=== PATIENT | female | born 1960 | race Caucasian/White ===

== ENCOUNTER 2021-08-21 18:50 | Observation (INO) | payer MEDICARE, MEDICAID ==
[~2021-08-21] VITALS: Ht 160 cm; Wt 68.0 kg
[~2021-08-21 18:50] MED LIST: ACHYD1T PO; AMLO-251 PO; ASPI-1238 PO; ATOR20TA49 PO; ATOR40TA PO; BIOT1TAB PO; BUSP5TAB59 PO; BUSP7.5T5 PO; CHOL10007 PO; CITA40TA13 PO; CYCL10TA25 PO; DIAZ2TAB PO; DOCU-143 PO; FENT1PAT9 TD; FERR325T18 PO; GABA-488 PO; GBPN600T PO; LEVO100T7 PO; LEVO75TA PO; LORA10TA7 PO; LOSA100T57 PO; MELO15TA14 PO; MTP100TCR PO; MULT-35 PO; NF-ACI30T PO; PSEU-182 PO; ZOLP10TA5 PO
[2021-08-21] MEDS ORDERED: CEFEPIME INJECTION 1,000 MG in NS (IVPB) 50 ML IV ONE (19:00)
[2021-08-21] MEDS ORDERED: NS IV 1000 ML 1,000 ML IV SCH (19:00)
--- NOTE | 2021-08-21 19:04 | ED General ---
General Chief Complaint: General Problems/Pain Stated Complaint: WEAKNESS Source of Information: Patient, EMS Exam Limitations: No Limitations History of Present Illness Date Seen by Provider: Aug 21, 2021 Time Seen by Provider: 18:45 Initial Comments 60-year-old female with past medical history of hypertension, prior stroke, HLD, hypothyroidism coming in via EMS from home due to general weakness and nonbloody diarrhea. She says is feeling worse over the past 2 weeks. She says she is hardly been out of her bed at all in the past week and could not get out of bed at all today. Her niece came over and was the one that called an ambulance. Patient says since she has not been able to get out of bed, has not really had anything to eat or drink in the past week significantly. EMS started an IV and gave her 1 L of IV fluids for low blood pressure of 90 systolic. The patient denies any fever, chest pain, shortness of breath, abdominal pain, nausea, focal weakness or numbness, rash, dysuria, or any other concerns. She says she is felt lightheaded and the last fall that she had was about a week ago. Does not take any blood thinners that she knows of. Allergies and Home Medications Allergies Uncoded Allergies: cnantix (Adverse Reaction, Intermediate, 01/04/17) Patient Home Medication List Home Medication List Reviewed: Yes Amlodipine Besylate (Amlodipine Besylate) 10 Mg Tablet, 10 MG PO DAILY, (Reported) Entered as Reported by: BRINDA PEREZ on 01/07/17 08 Aspirin (Aspirin EC) 81 Mg Tablet.dr, 81 MG PO DAILY Prescribed by: LARA ROSALES on 01/15/17901 Atorvastatin Calcium (Lipitor) 40 Mg Tablet, 40 MG PO HS Prescribed by: LARA ROSALES on 01/15/17901 Biotin (Biotin) 1 Mg Tablet, 1 MG PO 1200, (Reported) Entered as Reported by: BRINDA PEREZ on 01/07/17 08 Buspirone HCl (Buspirone HCl) 5 Mg Tablet, 5 MG PO DAILY, (Reported) Entered as Reported by: BRINDA PEREZ on 01/07/17823 Buspirone HCl (Buspirone HCl) 7.5 Mg Tablet, 7.5 MG PO HS, (Reported) Entered as Reported by: BRINDA PEREZ on 01/07/17823 Cholecalciferol (Vitamin D3) (Vitamin D3) 1,000 Unit Capsule, 1,000 UNIT PO 1200, (Reported) Entered as Reported by: BRINDA PEREZ on 01/07/17823 Citalopram Hydrobromide (Citalopram HBr) 40 Mg Tablet, 40 MG PO DAILY, (Reported) Entered as Reported by: BRINDA PEREZ on 01/07/17823 Cyclobenzaprine HCl (Cyclobenzaprine HCl) 10 Mg Tablet, 10 MG PO TID PRN for MUSCLE SPASMS, (Reported) Entered as Reported by: BRINDA PEREZ on 01/07/17823 Diazepam (Valium) 2 Mg Tablet, 2 MG PO Q12H PRN for ANXIETY Prescribed by: LARA ROSALES on 01/15/17901 Docusate Sodium (Colace) 100 Mg Capsule, 200 MG PO HS, (Reported) Entered as Reported by: BRINDA PEREZ on 01/07/17823 Docusate Sodium (Colace) 100 Mg Capsule, 100 MG PO DAILY, (Reported) Entered as Reported by: BRINDA PEREZ on 01/07/17823 Fentanyl (Fentanyl Patch 50 MCG) 1 Each Patch.td72, 50 MCG TD Q72H, (Reported) Entered as Reported by: BRINDA PEREZ on 01/07/17823 Ferrous Sulfate (Ferrous Sulfate) 325 Mg Tablet, 325 MG PO HS, (Reported) Entered as Reported by: BRINDA PEREZ on 01/07/17823 Gabapentin (Gabapentin) 600 Mg Tablet, 600 MG PO DAILY, (Reported) Entered as Reported by: BRINDA PEREZ on 01/07/17823 Gabapentin (Gabapentin) 300 Mg Capsule, 300-600 MG PO 1200 PRN for NERVE PAIN, (Reported) Entered as Reported by: BRINDA PEREZ on 01/07/17827 Gabapentin (Gabapentin) 300 Mg Capsule, 900 MG PO HS, (Reported) Entered as Reported by: BRINDA PEREZ on 01/07/17836 Hydrocodone Bit/Acetaminophen (HYDROcodone/APAP 10/325 TABLET) 1 Each Tablet, 1 TAB PO Q6H PRN for PAIN-MODERATE, (Reported) Entered as Reported by: BRINDA PEREZ on 01/07/17823 Levothyroxine Sodium (Synthroid) 75 Mcg Tablet, 75 MCG PO DAILY@0630 Prescribed by: LARA ROSALES on 01/15/17902 Loratadine (Loratadine) 10 Mg Tablet, 10 MG PO DAILY, (Reported) Entered as Reported by: BRINDA PEREZ on 01/07/17823 Losartan Potassium (Losartan Potassium) 100 Mg Tablet, 100 MG PO HS, (Reported) Entered as Reported by: BRINDA PEREZ on 01/07/17823 Metoprolol Succinate (Metoprolol Succinate) 100 Mg Tab.er.24h, 100 MG PO HS, (Reported) Entered as Reported by: BRINDA PEREZ on 01/07/17823 Multivitamin (Daily Multiple Vitamin) 1 Each Tablet, 1 TAB PO 1200, (Reported) Entered as Reported by: BRINDA PEREZ on 01/07/17823 Rabeprazole Sodium (Aciphex) 20 Mg Tablet.dr, 20 MG PO BID, (Reported) Entered as Reported by: BRINDA PEREZ on 01/07/17823 Review of Systems Review of Systems Constitutional: No fever EENTM: No blurred vision Respiratory: No cough, No short of breath Cardiovascular: No chest pain Gastrointestinal: No abdominal pain; diarrhea Genitourinary: no symptoms reported Musculoskeletal: No joint pain Skin: no symptoms reported Psychiatric/Neurological: Weakness (general) Hematologic/Lymphatic: No Symptoms Reported Immunological/Allergic: no symptoms reported All Other Systems Reviewed Negative Unless Noted: Yes Past Fjkyqfc-Hdtkrj-Hrpkvj Hx Patient Social History Tobacco Use?: No Substance use?: No Alcohol Use?: No Seasonal Allergies Seasonal Allergies: No Past Medical History Surgeries: Yes Respiratory: Yes COPD Cardiac: Yes Neurological: Yes Genitourinary: No Chronic Constipation Musculoskeletal: Yes Arthritis Endocrine: Yes (hashimotos) HEENT: No Cancer: Yes (lung ca 2008) Did You Recieve Any Treatments: No What Type of Treatment Did You: Surgical Intervention Psychosocial: Yes Anxiety, Depression Integumentary: No Blood Disorders: No Adverse Reaction/Blood Tranf: No Physical Exam Vital Signs Vital Signs - First Documented 08/21/21 18:50 Temp 36.7 Pulse 81 Resp 9 B/P (MAP) 87/63 (71) Pulse Ox 96 O2 Delivery Nasal Cannula O2 Flow Rate 2.00 Capillary Refill : Height, Weight, BMI Height: 5'3.00" Weight: 160lbs. 7.0oz. 72.190300fm; 27.8 BMI Method: General Appearance: No Apparent Distress, WD/WN Eyes: Bilateral Eye Normal Inspection HEENT: PERRL/EOMI, Pharynx Normal, Other (dry mucus membranes) Neck: Full Range of Motion, Non Tender Respiratory: Chest Non Tender, Lungs Clear, Normal Breath Sounds, No Accessory Muscle Use, No Respiratory Distress Cardiovascular: Regular Rate, Rhythm, No Edema, Normal Peripheral Pulses Gastrointestinal: Normal Bowel Sounds, Non Tender, Soft; No Distended, No Guarding Back: Normal Inspection, No CVA Tenderness, No Vertebral Tenderness Extremity: Normal Capillary Refill, Normal Inspection, Normal Range of Motion, Non Tender, No Calf Tenderness, No Pedal Edema Neurologic/Psychiatric: Alert, Oriented x3, No Motor/Sensory Deficits, Normal Mood/Affect, janitor and cleaner II-XII Norm as Tested, Other (normal finger to nose) Skin: Normal Color, Warm/Dry Lymphatic: No Adenopathy Focused Exam Lactate Level 08/21/21 19:03: Lactic Acid Level 0.87 Lactic Acid Level Laboratory Tests Test 08/21/21 19:03 Lactic Acid Level 0.87 MMOL/L (0.50-2.00) Progress/Results/Core Measures Suspected Sepsis SIRS Temperature: Pulse: Respiratory Rate: Laboratory Tests 08/21/21 19:03: White Blood Count 6.6 Blood Pressure / Mean: 08/21/21 19:03: Lactic Acid Level 0.87 Laboratory Tests 08/21/21 19:03: Creatinine 0.81, INR Comment 0.9, Platelet Count 304, Total Bilirubin 1.0 Results/Orders Lab Results Laboratory Tests Test 08/21/21 19:03 Range/Units White Blood Count 6.6 4.3-11.0 10^3/uL Red Blood Count 2.95 L 3.80-5.11 10^6/uL Hemoglobin 9.7 L 11.5-16.0 g/dL Hematocrit 30 L 35-52 % Mean Corpuscular Volume 100 H 80-99 fL Mean Corpuscular Hemoglobin 33 25-34 pg Mean Corpuscular Hemoglobin Concent 33 32-36 g/dL Red Cell Distribution Width 17.7 H 10.0-14.5 % Platelet Count 304 130-400 10^3/uL Mean Platelet Volume 10.6 9.0-12.2 fL Immature Granulocyte % (Auto) 0 % Neutrophils (%) (Auto) 56 42-75 % Lymphocytes (%) (Auto) 30 12-44 % Monocytes (%) (Auto) 11 0-12 % Eosinophils (%) (Auto) 2 0-10 % Basophils (%) (Auto) 1 0-10 % Neutrophils # (Auto) 3.7 1.8-7.8 10^3/uL Lymphocytes # (Auto) 2.0 1.0-4.0 10^3/uL Monocytes # (Auto) 0.7 0.0-1.0 10^3/uL Eosinophils # (Auto) 0.1 0.0-0.3 10^3/uL Basophils # (Auto) 0.0 0.0-0.1 10^3/uL Immature Granulocyte # (Auto) 0.0 0.0-0.1 10^3/uL Prothrombin Time 12.9 12.2-14.7 SEC INR Comment 0.9 0.8-1.4 Activated Partial Thromboplast Time 25 24-35 SEC Sodium Level 137 135-145 MMOL/L Potassium Level 3.1 L 3.6-5.0 MMOL/L Chloride Level 93 L 98-107 MMOL/L Carbon Dioxide Level 33 H 21-32 MMOL/L Anion Gap 11 5-14 MMOL/L Blood Urea Nitrogen 8 7-18 MG/DL Creatinine 0.81 0.60-1.30 MG/DL Estimat Glomerular Filtration Rate 83 BUN/Creatinine Ratio 10 Glucose Level 70 70-105 MG/DL Lactic Acid Level 0.87 0.50-2.00 MMOL/L Calcium Level 7.6 L 8.5-10.1 MG/DL Corrected Calcium 9.2 8.5-10.1 MG/DL Total Bilirubin 1.0 0.1-1.0 MG/DL Aspartate Amino Transf (AST/SGOT) 39 H 5-34 U/L Alanine Aminotransferase (ALT/SGPT) 47 0-55 U/L Alkaline Phosphatase 156 H 40-136 U/L Troponin I < 0.028 <0.028 NG/ML Total Protein 5.0 L 6.4-8.2 GM/DL Albumin 2.0 L 3.2-4.5 GM/DL Influenza Type A (RT-PCR) Not Detected Not Detecte Influenza Type B (RT-PCR) Not Detected Not Detecte SARS-CoV-2 RNA (RT-PCR) Not Detected Not Detecte My Orders Orders - NAVYA BUITRAGO MD Covid 19 Inhouse Test (08/21/21 18:55) Cbc With Automated Diff (08/21/21 18:55) Comprehensive Metabolic Panel (08/21/21 18:55) Blood Culture (08/21/21 18:55) Sputum Culture (08/21/21 18:55) Urinalysis (08/21/21 18:55) Urine Culture (08/21/21 18:55) Protime With Inr (08/21/21 18:55) Partial Thromboplastin Time (08/21/21 18:55) Chest 1 View, Ap/Pa Only (08/21/21 18:55) Ed Iv/Invasive Line Start (08/21/21 18:55) Ed Iv/Invasive Line Start (08/21/21 18:55) Ekg Tracing (08/21/21 18:55) Troponin I [place] (08/21/21 18:55) Vital Signs Adult Sepsis Patie Q15M (08/21/21 18:55) O2 (08/21/21 18:55) Remove Rings In Anticipation O (08/21/21 18:55) Lactic Acid Analyzer (08/21/21 18:55) Influenza A And B By Pcr (08/21/21 18:55) Ns Iv 1000 Ml (Sodium Chloride 0.9%) (08/21/21 19:00) Cefepime Injection (Maxipime Injection) (08/21/21 19:00) Ct Head Wo (08/21/21 18:55) Lactated Ringers (Lr 1000 Ml Iv Solution (08/21/21 20:54) Ed Admission (Communication) (08/21/21 23:14) Medications Given in ED Current Medications Medications Dose Ordered Sig/Anastacio Route Start Time Stop Time Status Last Admin Dose Admin Cefepime HCl 1000 mg/Sodium Chloride 50 ml @ 100 mls/hr ONCE ONCE IV 08/21/21 19:00 08/21/21 19:29 DC 08/21/21 19:14 100 MLS/HR Vital Signs/I&O 08/21/21 18:50 Temp 36.7 Pulse 81 Resp 9 B/P (MAP) 87/63 (71) Pulse Ox 96 O2 Delivery Nasal Cannula O2 Flow Rate 2.00 08/22/21 00:00 Intake Total 700 ml Balance 700 ml Capillary Refill : Progress Note : Progress Note 60-year-old female with above history coming in due to diarrhea, lightheaded, general weakness, and low blood pressure. The patient's blood pressure was 80 systolic on arrival. EMS had given her 1 L of IV fluids, after her second liter here her blood pressure was in the 90s systolic with a MAP right around 65. We will give her a 3rd liter of fluids given she has no history of heart disease, liver disease, or kidney disease and still looks volume down. White blood cell count normal, creatinine normal, lactic acid normal, troponin negative, EKG without ischemic changes. Chest x-ray clear, CT head obtained given recent fall and was normal. Initially on arrival when she was hypotensive she was given cefepime for potential sepsis, but it does appear like this is just true dehydration from diarrhea. COVID test is negative. Abdominal exam is reassuring. ECG Initial ECG Impression Date: Aug 21, 2021 Initial ECG Impression Time: 19:04 Initial ECG Rate: 82 Initial ECG Rhythm: Normal Sinus Comment Narrow QRS, normal axis, no significant ST changes or TWI Diagnostic Imaging Diagonstic Imaging: Xray (chest), CT (head) Comments [facility] [place], [place] NAME: SANDER RODRIGUEZ [facility] REC#: [id number] PT STATUS: REG ER : 1960 PHYSICIAN: NAVYA BUITRAGO MD ADMIT DATE: 08/21/21/ER Draft Date of Exam:08/21/21 CT HEAD WO PROCEDURE: CT head without contrast. TECHNIQUE: Multiple contiguous axial images were obtained through the brain without the use of intravenous contrast. Auto Exposure Controls were utilized during the CT exam to meet ALARA standards for radiation dose reduction. INDICATION: Falls. Dizziness. Weakness. COMPARISON: None. FINDINGS: Moderate generalized parenchymal volume loss. No intracranial hemorrhage, mass effect, hydrocephalus or extra-axial fluid collections. Osseous structures are intact. The paranasal sinuses and mastoids are unremarkable. IMPRESSION: No acute intracranial CT findings. Dictated on workstation # [id number] Dict: 08/21/211950 Trans: 08/21/211954 [facility] [id number] Interpreted by: NIYAH TROTTER MD Electronically signed by: ANANDA [facility]. [place], [place] NAME: SANDER RODRIGUEZ [facility] REC#: [id number] PT STATUS: REG ER : 1960 PHYSICIAN: NAVYA BUITRAGO MD ADMIT DATE: 08/21/21/ER Draft Date of Exam:08/21/21 CHEST 1 VIEW, AP/PA ONLY CLINICAL INDICATIONS: Patient complains of weakness x1 week. Patient has history of small cell lung cancer. EXAM: Portable chest x-ray, upright view. COMPARISON: None. FINDINGS: There is consolidation in the right hemithorax region. There is shifting of the mediastinal structures toward the right and surgical clips in the expected region of the right hilar area. These findings are suspected to be related to right pneumonectomy changes. There is hyperinflation of the left lung. Left lung is clear. There is no left pleural effusion or pneumothorax. Cardiac silhouette is obscured and displaced toward the right. Left pulmonary vasculature structures are grossly unremarkable. There are degenerative spurs involving the spine. Likely postop changes of bone anchor involving the proximal right humerus. IMPRESSION: 1: There appear to be right pneumonectomy changes. Correlation with prior outside hospital chest x-rays or CT scans would better evaluate for stability. 2: The left lung is hyperinflated with no lung infiltrate. Dictated on workstation # [id number] Dict: 08/21/211951 Trans: 08/21/212000 [facility] [id number] Interpreted by: LINDSAY BEY MD Electronically signed by: Departure Impression Primary Impression: Hypotension Qualified Codes: I95.89 - Other hypotension; E86.1 - Hypovolemia Additional Impressions: Diarrhea Qualified Codes: R19.7 - Diarrhea, unspecified Dehydration Disposition: ADMITTED INPATIENT Condition: Stable Admissions Decision to Admit Reason: Admit from ER (General) Decision to Admit/Date: Aug 21, 2021 Time/Decision to Admit Time: 20:55 Departure-Patient Inst. Referrals: MATILDA FRANK (PCP/Family) Primary Care Physician NAVYA BUITRAGO MD Aug 21, 2021 19:03
[2021-08-21 19:07] LABS: BASOPHILS % (AUTO) 1 % (0-10); EOSINOPHILS # (AUTO) 0.1 10^3/uL (0.0-0.3); EOSINOPHILS % (AUTO) 2 % (0-10); HEMATOCRIT 30 % (35-52); HEMOGLOBIN 9.7 g/dL (11.5-16.0); LYMPHOCYTES % (AUTO) 30 % (12-44); MEAN CORPUSCULAR HEMOGLOBIN 33 pg (25-34); MEAN CORPUSCULAR HGB CONC 33 g/dL (32-36); MEAN CORPUSCULAR VOLUME 100 fL (80-99); MEAN PLATELET VOLUME 10.6 fL (9.0-12.2); MONOCYTES # (AUTO) 0.7 10^3/uL (0.0-1.0); MONOCYTES % (AUTO) 11 % (0-12); NEUTROPHILS # (AUTO) 3.7 10^3/uL (1.8-7.8); NEUTROPHILS % (AUTO) 56 % (42-75); PLATELET COUNT 304 10^3/uL (130-400); WHITE BLOOD COUNT 6.6 10^3/uL (4.3-11.0)
[2021-08-21 19:20] LABS: CHLORIDE 93 MMOL/L (98-107); POTASSIUM 3.1 MMOL/L (3.6-5.0); SODIUM 137 MMOL/L (135-145)
[2021-08-21 19:21] LABS: CALCIUM 7.6 MG/DL (8.5-10.1)
[2021-08-21 19:22] LABS: GLUCOSE 70 MG/DL (70-105)
[2021-08-21 19:23] LABS: CARBON DIOXIDE 33 MMOL/L (21-32); INR 0.9 (0.8-1.4); PROTHROMBIN TIME PATIENT 12.9 SEC (12.2-14.7)
[2021-08-21 19:25] LABS: ALKALINE PHOSPHATASE 156 U/L (40-136)
[2021-08-21 19:26] LABS: CREATININE SERUM 0.81 MG/DL (0.60-1.30); GFR ESTIMATED 83
[2021-08-21 19:27] LABS: BUN/CREATININE RATIO 10
[2021-08-21 19:29] LABS: ALANINE AMINOTRANSFERASE 47 U/L (0-55)
--- NOTE | 2021-08-21 19:55 | Diagnostic Imaging Report ---
PROCEDURE: CT head without contrast. TECHNIQUE: Multiple contiguous axial images were obtained through the brain without the use of intravenous contrast. Auto Exposure Controls were utilized during the CT exam to meet ALARA standards for radiation dose reduction. INDICATION: Falls. Dizziness. Weakness. COMPARISON: None. FINDINGS: Moderate generalized parenchymal volume loss. No intracranial hemorrhage, mass effect, hydrocephalus or extra-axial fluid collections. Osseous structures are intact. The paranasal sinuses and mastoids are unremarkable. IMPRESSION: No acute intracranial CT findings. Dictated by: Dictated on workstation # [id number]
--- NOTE | 2021-08-21 20:01 | Diagnostic Imaging Report ---
CLINICAL INDICATIONS: Patient complains of weakness x1 week. Patient has history of small cell lung cancer. EXAM: Portable chest x-ray, upright view. COMPARISON: None. FINDINGS: There is consolidation in the right hemithorax region. There is shifting of the mediastinal structures toward the right and surgical clips in the expected region of the right hilar area. These findings are suspected to be related to right pneumonectomy changes. There is hyperinflation of the left lung. Left lung is clear. There is no left pleural effusion or pneumothorax. Cardiac silhouette is obscured and displaced toward the right. Left pulmonary vasculature structures are grossly unremarkable. There are degenerative spurs involving the spine. Likely postop changes of bone anchor involving the proximal right humerus. IMPRESSION: 1: There appear to be right pneumonectomy changes. Correlation with prior outside hospital chest x-rays or CT scans would better evaluate for stability. 2: The left lung is hyperinflated with no lung infiltrate. Dictated by: Dictated on workstation # [id number]
[2021-08-21] MEDS ORDERED: LACTATED RINGERS 1,000 ML IV STA (20:54)
[2021-08-21 23:57] VITALS: BP 120/84
[2021-08-22] VITALS (9 sets, daily range): BP systolic 87–120; BP diastolic 63–86
[2021-08-22] MEDS ORDERED: ONDANSETRON 4 MG/2 ML (SDV) Z0FRAN IV PRN (00:15)
[2021-08-22] MEDS ORDERED: LORazepam INJ 2 MG/ML (ATIVAN) VIAL IVP PRN (00:15)
[2021-08-22] MEDS ORDERED: LOPERAMIDE 2 MG (IMODIUM) TABLET PO PRN (00:15)
[2021-08-22] MEDS ORDERED: BISACODYL 10 MG SUPP (DULCOLAX) PR PRN (00:15)
[2021-08-22] MEDS ORDERED: NS IV 1000 ML 1,000 ML IV SCH (00:15)
[2021-08-22] MEDS ORDERED: ALPRAZolam 0.25 MG (XANAX) TAB PO PRN (00:15)
[2021-08-22] MEDS ORDERED: diphenhydrAMINE 25 MG TAB (BENADRYL) PO PRN (00:15)
[2021-08-22] MEDS ORDERED: NS (IVPB) 250 ML IV PRN (00:15)
[2021-08-22] MEDS ORDERED: ACETAMINOPHEN 325 MG TABLET PO PRN (00:15)
[2021-08-22] MEDS ORDERED: MELATONIN 3 MG TABLET PO PRN (00:15)
[2021-08-22] MEDS ORDERED: diphenhydrAMINE 50 MG/ML INJ (BENADRYL) IVP PRN (00:15)
[2021-08-22] MEDS ORDERED: ANTACID SUSP 30 ML UDC (MYLANTA) PO PRN (00:15)
[2021-08-22] MEDS ORDERED: CALCIUM CARBONATE 500 MG (TUMS) TAB.CHEW PO PRN (00:15)
[2021-08-22] MEDS ORDERED: MILK OF MAGNESIA 400 MG/5 ML 30 ML UDC PO PRN (00:15)
[2021-08-22] MEDS ORDERED: ONDANSETRON 4 MG (ZOFRAN) ORAL DISSOLVE TAB PO PRN (00:15)
[2021-08-22] MEDS ORDERED: polyethylene glycoL POWDER 17 GM (MIRALAX) PACK PO PRN (00:15)
[2021-08-22] MEDS ORDERED: LACTULOSE SYRUP 10GM/15ML (ENULOSE) 30ML UDC PO PRN (00:15)
[2021-08-22] MEDS ORDERED: morphine INJ 4 MG/ML 1 ML (VIAL/SYRINGE) IV PRN (00:15)
[2021-08-22] MEDS ORDERED: RT-ALBUTEROL SULF 2.5 MG/3 ML PRE-MIX VIAL INH PRN (01:00)
--- NOTE | 2021-08-22 06:51 | History & Physical-Hospitalist ---
History of Present Illness Date Seen 08/22/21 Time Seen by a Provider: 09:30 Attending Physician Bernadette Erazo PCP Admitting Physician: Mary Vazquez DO Attending Physician: Mary Vazquez DO Referring Physician Date of Admission Aug 21, 2021 at 23:15 Home Medications & Allergies Home Medications Reviewed patient Home Medication Reconciliation performed by pharmacy medication reconciliations nail technician and/or nursing. Patients Allergies have been reviewed. Allergies Allergies Uncoded Allergies cnantix ( Adverse Reaction, Intermediate, 01/04/17) Past Kkombro-Glbcxh-Hxgyqw Hx Patient Social History Tobacco Use?: No Smoking Status: Former Smoker Smokeless Tobacco Frequency: Former User Use of E-Cig and/or Vaping dev: No Substance use?: No Alcohol Use?: No Pt feels they are or have been: No Immunizations Up To Date Date of Influenza Vaccine: Jan 08, 2017 First/Initial COVID19 Vaccinat: 2021 Second COVID19 Vaccination Michael: 2021 Tetanus Booster (TDap): Less Than 5 Years Date of Pneumonia Vaccine: Dec 06, 2015 Seasonal Allergies Seasonal Allergies: No Current Status status: No status: No Communicates: Verbally Primary Language: Cymro Preferred Spoken Language: Cymro Is interpretation needed?: No Implanted or Applied Medical D: None Past Medical History COPD Chronic Constipation Arthritis Did You Recieve Any Treatments: No What Type of Treatment Did You: Surgical Intervention Anxiety, Depression Blood Disorders: No Adverse Reaction/Blood Tranf: No Physical Exam Physical Exam Vital Signs Vital Signs - First Documented 08/21/21 18:50 Temp 36.7 Pulse 81 Resp 9 B/P (MAP) 87/63 (71) Pulse Ox 96 O2 Delivery Nasal Cannula O2 Flow Rate 2.00 Capillary Refill : Height, Weight, BMI Height: 5'3.00" Weight: 160lbs. 7.0oz. 72.948331qi; 26.36 BMI Method: Results Results/Procedures Labs Laboratory Tests 08/21/21 19:03 08/22/21 07:37 Patient resulted labs reviewed. MARY VAZQUEZ DO Aug 22, 2021 06:51
[2021-08-22 07:50] LABS: BASOPHILS # (AUTO) 0.1 10^3/uL (0.0-0.1); BASOPHILS % (AUTO) 1 % (0-10); EOSINOPHILS # (AUTO) 0.2 10^3/uL (0.0-0.3); EOSINOPHILS % (AUTO) 3 % (0-10); HEMATOCRIT 33 % (35-52); HEMOGLOBIN 10.4 g/dL (11.5-16.0); LYMPHOCYTES # (AUTO) 1.6 10^3/uL (1.0-4.0); LYMPHOCYTES % (AUTO) 24 % (12-44); MEAN CORPUSCULAR HEMOGLOBIN 32 pg (25-34); MEAN CORPUSCULAR HGB CONC 32 g/dL (32-36); MEAN CORPUSCULAR VOLUME 103 fL (80-99); MEAN PLATELET VOLUME 11.1 fL (9.0-12.2); MONOCYTES # (AUTO) 0.6 10^3/uL (0.0-1.0); MONOCYTES % (AUTO) 10 % (0-12); NEUTROPHILS # (AUTO) 4.2 10^3/uL (1.8-7.8); NEUTROPHILS % (AUTO) 63 % (42-75); PLATELET COUNT 209 10^3/uL (130-400); WHITE BLOOD COUNT 6.7 10^3/uL (4.3-11.0)
[2021-08-22 08:05] LABS: ALBUMIN 2.1 GM/DL (3.2-4.5); BILIRUBIN,TOTAL 0.9 MG/DL (0.1-1.0); CALCIUM 7.6 MG/DL (8.5-10.1); CREATININE SERUM 0.87 MG/DL (0.60-1.30); POTASSIUM 3.4 MMOL/L (3.6-5.0); TOTAL PROTEIN 5.4 GM/DL (6.4-8.2)
[2021-08-22] MEDS ORDERED: SENNOSIDES 8.6 MG (SENOKOT) TAB PO SCH (09:00)
[2021-08-22] MEDS ORDERED: ENOXAPARIN 40 MG/0.4 ML (LOVENOX) SYR SC SCH (09:00)
[2021-08-22] MEDS ORDERED: DOCUSATE SODIUM 100 MG (COLACE) CAP PO SCH (09:00)
--- NOTE | 2021-08-22 09:39 | Short Stay Summary ---
History of Present Illness History of Present Illness Reason for visit/HPI CC: Dehydration from Diarrhea HPI: This is 60 yr old female who has a previous history of CVA and pneumonectomy due to lung cancer. She presented to the ER with severe weakness and was found to have profound dehydration. She received aggressive IV fluid with good return of urinary output. Diarrhea has been much improved since admission. The plan is to go to in-patient rehab due to multiple falls history and severe weakness. She would like to go to assisted living. She wears oxygen 01/10. Date of Admission Aug 21, 2021 at 23:15 Date of Discharge 08/22/21 Time Seen by Provider: 10:00 Attending Physician Bernadette Erazo Admitting Physician Admitting Physician: Mary Vazquez DO Attending Physician: Mary Vazquez DO Consult Allergies and Home Medications Allergies Coded Allergies: varenicline (Verified Allergy, Unknown, 08/22/21) Patient Home Medication List Home Medication List Reviewed: Yes Aspirin (Aspirin EC) 81 Mg Tablet.dr, 81 MG PO DAILY, (Reported) Entered as Reported by: MARIA DOLORES LAM on 08/22/21 1147 Atorvastatin Calcium (Atorvastatin Calcium) 40 Mg Tablet, 40 MG PO HS, (Reported) Entered as Reported by: MARIA DOLORES LAM on 08/22/21 1147 Cyclobenzaprine HCl (Cyclobenzaprine HCl) 10 Mg Tablet, 10 MG PO TID PRN for MUSCLE SPASMS, (Reported) Entered as Reported by: BRINDA PEREZ on 01/07/17 0824 Fentanyl (Fentanyl Patch 50 MCG) 50 Mcg/Hour Patch.td72, 50 MCG TD Q72H, (Reported) Entered as Reported by: MARIA DOLORES LAM on 08/22/21 1147 Fluticasone Propionate (Fluticasone Propionate) 50 Mcg/Actuation [place].susp, 1 SPRAY NSEACH DAILY PRN for CONGESTION, (Reported) Entered as Reported by: MARIA DOLORES LAM on 08/22/21 1147 Gabapentin (Gabapentin) 600 Mg Tablet, 600 MG PO BID PRN for PAIN-BREAKTHROUGH, (Reported) Entered as Reported by: BRINDA PEREZ on 01/07/17 0824 Hydrocodone/Acetaminophen (Hydrocodone-Acetamin 5-325 mg) 5 Mg-325 Mg Tablet, 1 EA PO Q4H PRN for PAIN-MODERATE (5-7), (Reported) Entered as Reported by: MARIA DOLORES LAM on 08/22/21 1147 Hydroxyzine HCl (Hydroxyzine HCl) 50 Mg Tablet, 50 MG PO TID PRN for ANXIETY, (Reported) Entered as Reported by: MARIA DOLORES LAM on 08/22/21 114 Levothyroxine Sodium (Levothyroxine Sodium) 75 Mcg Tablet, 75 MCG PO DAILY, (Reported) Entered as Reported by: MARIA DOLORES LAM on 08/22/21 114 Losartan Potassium (Losartan Potassium) 100 Mg Tablet, 100 MG PO HS, (Reported) Entered as Reported by: BRINDA PEREZ on 01/07/17823 Metoprolol Succinate (Metoprolol Succinate) 100 Mg Tab.er.24h, 100 MG PO DAILY, (Reported) Entered as Reported by: BRINDA PEREZ on 01/07/17823 Paroxetine HCl (Paroxetine HCl) 10 Mg Tablet, 10 MG PO DAILY, (Reported) Entered as Reported by: MARIA DOLORES LAM on 08/22/21 114 Paroxetine HCl (Paroxetine HCl) 40 Mg Tablet, 40 MG PO DAILY, (Reported) Entered as Reported by: MARIA DOLORES LAM on 08/22/21 1148 Rabeprazole Sodium (Aciphex) 20 Mg Tablet.dr, 20 MG PO BID, (Reported) Entered as Reported by: BRINDA PEREZ on 01/07/17823 Discontinued Medications Amlodipine Besylate (Amlodipine Besylate) 10 Mg Tablet, 10 MG PO DAILY, (Reported) Discontinued Reason: No Longer Taking Entered as Reported by: BRINDA PEREZ on 01/07/17827 Aspirin (Aspirin EC) 81 Mg Tablet.dr, 81 MG PO DAILY Discontinued Reason: No Longer Taking Prescribed by: LARA ROSALES on 01/15/17901 Atorvastatin Calcium (Lipitor) 40 Mg Tablet, 40 MG PO HS Discontinued Reason: No Longer Taking Prescribed by: LARA ROSALES on 01/15/17901 Biotin (Biotin) 1 Mg Tablet, 1 MG PO 1200, (Reported) Discontinued Reason: No Longer Taking Entered as Reported by: BRINDA PEREZ on 01/07/17823 Buspirone HCl (Buspirone HCl) 5 Mg Tablet, 5 MG PO DAILY, (Reported) Discontinued Reason: No Longer Taking Entered as Reported by: BRINDA PEREZ on 01/07/17823 Buspirone HCl (Buspirone HCl) 7.5 Mg Tablet, 7.5 MG PO HS, (Reported) Discontinued Reason: No Longer Taking Entered as Reported by: BRINDA PEREZ on 01/07/17823 Cholecalciferol (Vitamin D3) (Vitamin D3) 1,000 Unit Capsule, 1,000 UNIT PO 1200, (Reported) Discontinued Reason: No Longer Taking Entered as Reported by: BRINDA PEREZ on 01/07/17823 Citalopram Hydrobromide (Citalopram HBr) 40 Mg Tablet, 40 MG PO DAILY, (Reported) Discontinued Reason: No Longer Taking Entered as Reported by: BRINDA PEREZ on 01/07/17823 Diazepam (Valium) 2 Mg Tablet, 2 MG PO Q12H PRN for ANXIETY Discontinued Reason: No Longer Taking Prescribed by: LARA ROSALES on 01/15/17901 Docusate Sodium (Colace) 100 Mg Capsule, 200 MG PO HS, (Reported) Discontinued Reason: No Longer Taking Entered as Reported by: BRINDA PEREZ on 01/07/17823 Docusate Sodium (Colace) 100 Mg Capsule, 100 MG PO DAILY, (Reported) Discontinued Reason: No Longer Taking Entered as Reported by: BRINDA PERZE on 01/07/17823 Fentanyl (Fentanyl Patch 50 MCG) 1 Each Patch.td72, 50 MCG TD Q72H, (Reported) Discontinued Reason: No Longer Taking Entered as Reported by: BRINDA PEREZ on 01/07/17823 Ferrous Sulfate (Ferrous Sulfate) 325 Mg Tablet, 325 MG PO HS, (Reported) Discontinued Reason: No Longer Taking Entered as Reported by: BRINDA PEREZ on 01/07/17823 Gabapentin (Gabapentin) 300 Mg Capsule, 300-600 MG PO 1200 PRN for NERVE PAIN, (Reported) Discontinued Reason: No Longer Taking Entered as Reported by: BRINDA PEREZ on 01/07/17827 Gabapentin (Gabapentin) 300 Mg Capsule, 900 MG PO HS, (Reported) Discontinued Reason: No Longer Taking Entered as Reported by: BRINDA PEREZ on 01/07/17836 Hydrocodone Bit/Acetaminophen (HYDROcodone/APAP 10/325 TABLET) 1 Each Tablet, 1 TAB PO Q6H PRN for PAIN-MODERATE, (Reported) Discontinued Reason: No Longer Taking Entered as Reported by: BRINDA PEREZ on 01/07/17 0824 Levothyroxine Sodium (Synthroid) 75 Mcg Tablet, 75 MCG PO DAILY@0630 Discontinued Reason: No Longer Taking Prescribed by: LARA ROSALES on 01/15/17 0903 Loratadine (Loratadine) 10 Mg Tablet, 10 MG PO DAILY, (Reported) Discontinued Reason: No Longer Taking Entered as Reported by: BRINDA PEREZ on 01/07/17823 Multivitamin (Daily Multiple Vitamin) 1 Each Tablet, 1 TAB PO 1200, (Reported) Discontinued Reason: No Longer Taking Entered as Reported by: BRINDA PEREZ on 01/07/17823 Past Nnfykja-Trjgvq-Dcjkik Hx Patient Social History Marrital Status: single Employed/Student: unemployed Smoking Status: Former Smoker Recent Hopitalizations: Yes Have you traveled recently?: No Alcohol Use?: No Pt feels they are or have been: No Immunizations Up To Date Date of Pneumonia Vaccine: Dec 06, 2015 Date of Influenza Vaccine: Jan 08, 2017 Seasonal Allergies Seasonal Allergies: No Surgeries Yes Respiratory Yes Asthma, COPD Cardiovascular Yes High Cholesterol, Hypertension Neurological Yes Stroke Genitourinary No Gastrointestinal Yes Chronic Constipation Musculoskeletal Yes Arthritis 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) Endocrine Disorders: Hypothyroidsim HEENT History of HEENT Disorders: No Cancer Yes (lung ca 2008) Did You Recieve Any Treatments: No Type of Treatment: Surgical Intervention Psychosocial History of Psychiatric Problem: Yes Behavioral Health Disorders: Anxiety, Depression Integumentary History of Skin or Integumenta: No Blood Transfusions History of Blood Disorders: No Adverse Reaction to a Blood Tr: No Review of Systems Constitutional: see HPI, malaise, weakness EENTM: no symptoms reported Cardiovascular: no symptoms reported Gastrointestinal: no symptoms reported Genitourinary: no symptoms reported Musculoskeletal: back pain, joint pain Skin: no symptoms reported Psychiatric/Neurological: Anxiety All Other Systems Reviewed Negative Unless Noted: Yes Physical Exam Vital Signs Vital Signs - First Documented 08/21/21 18:50 Temp 36.7 Pulse 81 Resp 9 B/P (MAP) 87/63 (71) Pulse Ox 96 O2 Delivery Nasal Cannula O2 Flow Rate 2.00 Capillary Refill : Height, Weight, BMI Height: 5'3.00" Weight: 160lbs. 7.0oz. [id number]; 26.36 BMI Method: General Appearance: No Apparent Distress, WD/WN, Chronically ill Eyes: Bilateral Eye Normal Inspection, Bilateral Eye PERRL, Bilateral Eye EOMI HEENT: PERRL/EOMI, Normal ENT Inspection, Pharynx Normal Neck: Full Range of Motion, Normal Inspection, Non Tender, Supple, Carotid Bruit Respiratory: Chest Non Tender, Lungs Clear, Normal Breath Sounds, No Accessory Muscle Use, No Respiratory Distress Cardiovascular: Regular Rate, Rhythm, No Edema, No Gallop, No JVD, No Murmur, Normal Peripheral Pulses Gastrointestinal: Normal Bowel Sounds, No Organomegaly, No Pulsatile Mass, Non Tender, Soft Back: Normal Inspection, No CVA Tenderness, No Vertebral Tenderness Extremity: Normal Capillary Refill, Normal Inspection, Normal Range of Motion, Non Tender, No Calf Tenderness, No Pedal Edema Neurologic/Psychiatric: Alert, Oriented x3, No Motor/Sensory Deficits, Normal Mood/Affect Skin: Normal Color, Warm/Dry Lymphatic: No Adenopathy Short Stay Diagnosis Discharge Diagnosis-Short Stay Admission Diagnosis: Weakness Dehydration Diarrhea Final Discharge Diagnosis: Weakness Dehydration Diarrhea Conclusion Labs Laboratory Tests 08/21/21 19:03: White Blood Count 6.6, Red Blood Count 2.95L, Hemoglobin 9.7L, Hematocrit 30L, Mean Corpuscular Volume 100H, Mean Corpuscular Hemoglobin 33, Mean Corpuscular Hemoglobin Concent 33, Red Cell Distribution Width 17.7H, Platelet Count 304, Mean Platelet Volume 10.6, Immature Granulocyte % (Auto) 0, Neutrophils (%) (Auto) 56, Lymphocytes (%) (Auto) 30, Monocytes (%) (Auto) 11, Eosinophils (%) (Auto) 2, Basophils (%) (Auto) 1, Neutrophils # (Auto) 3.7, Lymphocytes # (Auto) 2.0, Monocytes # (Auto) 0.7, Eosinophils # (Auto) 0.1, Basophils # (Auto) 0.0, Immature Granulocyte # (Auto) 0.0, Prothrombin Time 12.9, INR Comment 0.9, Activated Partial Thromboplast Time 25, Sodium Level 137, Potassium Level 3.1L, Chloride Level 93L, Carbon Dioxide Level 33H, Anion Gap 11, Blood Urea Nitrogen 8, Creatinine 0.81, Estimat Glomerular Filtration Rate 83, BUN/Creatinine Ratio 10, Glucose Level 70, Lactic Acid Level 0.87, Calcium Level 7.6L, Corrected C alcium 9.2, Total Bilirubin 1.0, Aspartate Amino Transf (AST/SGOT) 39H, Alanine Aminotransferase (ALT/SGPT) 47, Alkaline Phosphatase 156H, Troponin I < 0.028, Total Protein 5.0L, Albumin 2.0L, Influenza Type A (RT-PCR) Not Detected, Influenza Type B (RT-PCR) Not Detected, SARS-CoV-2 RNA (RT-PCR) Not Detected 08/22/21 07:37: White Blood Count 6.7, Red Blood Count 3.22L, Hemoglobin 10.4L, Hematocrit 33L, Mean Corpuscular Volume 103H, Mean Corpuscular Hemoglobin 32, Mean Corpuscular Hemoglobin Concent 32, Red Cell Distribution Width 17.8H, Platelet Count 209, Mean Platelet Volume 11.1, Immature Granulocyte % (Auto) 1, Neutrophils (%) (Auto) 63, Lymphocytes (%) (Auto) 24, Monocytes (%) (Auto) 10, Eosinophils (%) (Auto) 3, Basophils (%) (Auto) 1, Neutrophils # (Auto) 4.2, Lymphocytes # (Auto) 1.6, Monocytes # (Auto) 0.6, Eosinophils # (Auto) 0.2, Basophils # (Auto) 0.1, Immature Granulocyte # (Auto) 0.0, Sodium Level 139, Potassium Level 3.4L, Chloride Level 99, Carbon Dioxide Level 26, Anion Gap 14, Blood Urea Nitrogen 8, Creatinine 0.87, Estimat Glomerular Filtration Rate 76, BUN/Creatinine Ratio 9, Glucose Level 66L, Calcium Level 7.6L, Corrected Calcium 9.1, Total Bilirubin 0.9, Aspartate Amino Transf (AST/SGOT) 44H, Alanine Aminotransferase (ALT/SGPT) 48, Alkaline Phosphatase 198H, Total Protein 5.4L, Albumin 2.1L Conclusion/Plan MARY Diaz DO Aug 22, 2021 09:39
--- NOTE | 2021-08-22 09:54 | Physical Therapy Evaluation ---
PT Evaluation-General Medical Diagnosis Admission Date Aug 21, 2021 at 23:15 Medical Diagnosis: hypotension/dehydration Onset Date: Aug 21, 2021 Therapy Diagnosis Therapy Diagnosis: generalized weakness/debility Height/Weight Height (Feet): 5 Height (Inches): 3.00 Weight (Pounds): 160 Weight (Ounces): 7.0 Precautions Precautions/Isolations: Fall Prevention, Standard Precautions Referral Physician: George Reason for Referral: Evaluation/Treatment Medical History Pertinent Medical History: COPD, CVA, DM, HTN, Hypothroidism Current History EMS secondary to generalized weakness Reviewed History: Yes Social History Current Living Status: Alone Prior Prior Level of Function SCALE: Activities may be completed with or without assistive devices. 3-Wpizmroxbj-sjmntad completes the activity by him/herself with no assistance from a helper. 5-Set-up or Clean-up Assistance-helper sets up or cleans up; patient completes activity. [place] assists only prior to or following the activity. 4-Supervision or Touching Assistance-helper provides verbal cues and/or touc wyatt/steadying and/or contact guard assistance as patient completes activity. Assistance may be provided throughout the activity or intermittently. 3-Partial/Moderate Assistance-helper does LESS THAN HALF the effort. [place] lifts, holds or supports trunk or limbs, but provides less than half the effort. 2-Substantial/Maximal Assistance-helper does MORE THAN HALF the effort. [place] lifts or holds trunk or limbs and provides more than half the effort. 2-Efjygoxby-qnjwnr does ALL the effort. Patient does none of the effort to complete the activity. Or, the assistance of 2 or more helpers is required for the patient to complete the activity. If activity was not attempted, code reason: 7-Patient Refused. 9-Not Applicable-not attempted and the patient did not perform the activity before the current illness, exacerbation or injury. 10-Not Attempted due to Environmental Limitations-(lack of equipment, weather restraints, etc.). 88-Not Attempted due to Medical Conditions or Safety Concerns. Bed Mobility: 6 Transfers (B,C,W/C): 6 Gait: 6 Stairs: 6 Indoor Mobility (Ambulation): Independent Stairs: Independent Prior Devices Use: None PT Evaluation-Current Subjective Patient agrees to PT. Reports she feels weak but better. Objective Patient Orientation: Person, Time, Situation Attachments: Oxygen, Mcnamara Catheter, IV ROM/Strength ROM Lower Extremities bilateral LE WFL Strength Lower Extremities 3-/5 grossly bilateral LE Integumentary/Posture Integumentary refer to nursing notes Bladder Incontinence: Mcnamara Cath Posture WFL Neuromuscular (Tone, Coordination, Reflexes) diminished coordination due to weakness Sensory Vision: double vis Hearing: Functional Transfers Sit to Lying (QC): 3 Lying to Sitting/Side of Bed(Q: 3 Sit to Stand (QC): 3 severe retropulsion in stand with PT correct Gait Does the Patient Walk?: No and Walking Goal IS indicated Walk 10 feet (QC): 88 Walk 50 ft with 2 Turns(QC): 88 Walk 150 ft (QC): 88 Gait Assistive Device: FWW Balance Sitting Static: Fair Sitting Dynamic: Fair Standing Static: Poor Standing Dynamic: Poor Assessment/Needs 60 y.o. female, will benefit from skilled PT to address functional strength and mobility to improve current LOF. Rehab Potential: Fair PT Environmental Programs Manager Goals Environmental Programs Manager Goals PT Environmental Programs Manager Goals Time Frame: Sep 09, 2021 Roll Left & Right (QC): 6 Sit to Lying (QC): 6 Lying-Sitting on Side/Bed(QC): 6 Sit to Stand (QC): 6 Chair/Wne-ya-Yigbc Xfer(QC): 6 Toilet Transfer (QC): 6 Car Transfer (QC): 6 Walk 10 feet (QC): 6 Walk 50ft with 2 Turns (QC): 6 Walk 150 ft (QC): 6 PT Plan Problem List Problem List: Activity Tolerance, Functional Strength, Safety, Balance, Gait, Transfer, Bed Mobility Treatment/Plan Treatment Plan: Continue Plan of Care Treatment Plan: Bed Mobility, Education, Functional Activity Bright, Functional Strength, Gait, Safety, Therapeutic Exercise, Transfers Treatment Duration: Sep 09, 2021 Frequency: 6 times per week Estimated Hrs Per Day: .5 hour per day Patient and/or Family Agrees t: Yes Discharge Recommendations Therapy Discharge Recommendati: Post Acute PT Time/GCodes Time In: 750 Time Out: 807 Total Billed Treatment Time: 17 Total Billed Treatment 1 visit EVMod 17 min ETTA SHANKS PT Aug 22, 2021 09:54
[2021-08-22] MEDS ORDERED: ACHD5005 PO (11:47)
[2021-08-22] MEDS ORDERED: FLUT16SP22 NSEACH (11:47)
[2021-08-22] MEDS ORDERED: ATOR40TA70 PO (11:47)
[2021-08-22] MEDS ORDERED: ASPI-1238 PO (11:47)
[2021-08-22] MEDS ORDERED: LEVO75TA6 PO (11:47)
[2021-08-22] MEDS ORDERED: HYDR50TA76 PO (11:47)
[2021-08-22] MEDS ORDERED: FENT1PAT9 TD (11:47)
[2021-08-22] MEDS ORDERED: PARO40TA3 PO (11:48)
[2021-08-22] MEDS ORDERED: PARO10TA3 PO (11:48)
== END 2021-08-22 11:30 ==
LOC: ER 18:50 → CSD 23:15
PROVIDERS: ADMIT Internal Medicine; ATTEND Internal Medicine
DX: R53.1 Weakness (principal); E86.0 Dehydration; R19.7 Diarrhea, unspecified; I95.89 Other hypotension; E86.1 Hypovolemia
CPT/HCPCS: 70450; 71045; 80053 ×2; 83605; 84484; 85025 ×2; 85610; 85730; 87040; 87636; 93005; 96372; 97162; 99284; G0378; 36415; 87077

== ENCOUNTER 2021-08-22 10:23 | Inpatient (IN) | payer MEDICARE, MEDICAID ==
[~2021-08-22] VITALS: Ht 160 cm; Wt 74.8 kg
--- NOTE | 2021-08-22 11:09 | PM&R Post Admission Assessment ---
PM&R HP Date of Visit: Aug 22, 2021 Time of Visit: 12:00 History of Present Illness CC: Debility from Dehydration from Diarrhea HPI: This is 60 yr old female who has a previous history of CVA and pneumonectomy due to lung cancer. She presented to the ER with severe weakness and was found to have profound dehydration. She received aggressive IV fluid with good return of urinary output. Diarrhea has been much improved since admission. The plan is to go to in-patient rehab due to multiple falls history and severe weakness. She would like to go to assisted living. She wears oxygen 01/10. She reports she has been staying in bed all the time due to fear of falling and has sustained a pressure ulcer on her heel so wound care will see her. Past Xxssbfh-Bsfdwa-Upsxux Hx Past Med/Social Hx: Reviewed Nursing Past Med/Soc Hx, Reviewed and Corrections made Patient Social History Marrital Status: single Employed/Student: unemployed Alcohol Use: Denies Use Smoking Status: Former Smoker Type Used: Cigarettes Recent Hopitalizations: Yes Immunizations Up To Date Date of Pneumonia Vaccine: Dec 06, 2015 Date of Influenza Vaccine: Jan 08, 2017 Seasonal Allergies Seasonal Allergies: No Past Medical History Surgeries: Lobectomy Respiratory: COPD Cardiac: High Cholesterol, Hypertension Neurological: Neuropathy, Stroke Genitourinary: Bladder Infection Gastrointestinal: Chronic Constipation Musculoskeletal: Arthritis Cancer: Lung Did You Recieve Any Treatments: No What Type of Treatment Did You: Surgical Intervention Psychosocial: Anxiety, Depression History of Blood Disorders: No Adverse Reaction to Blood Silva: No PM&R Allergy/Meds/Data Review Allergies Coded Allergies: varenicline (Verified Allergy, Unknown, 08/22/21) Home Medications Scheduled Aspirin (Aspirin EC), 81 MG PO DAILY, (Reported) Atorvastatin Calcium (Atorvastatin Calcium), 40 MG PO HS, (Reported) Fentanyl (Fentanyl Patch 50 MCG), 50 MCG TD Q72H, (Reported) Levothyroxine Sodium (Levothyroxine Sodium), 75 MCG PO DAILY, (Reported) Losartan Potassium (Losartan Potassium), 100 MG PO HS, (Reported) Metoprolol Succinate (Metoprolol Succinate), 100 MG PO DAILY, (Reported) Paroxetine HCl (Paroxetine HCl), 10 MG PO DAILY, (Reported) Paroxetine HCl (Paroxetine HCl), 40 MG PO DAILY, (Reported) Rabeprazole Sodium (Aciphex), 20 MG PO BID, (Reported) Scheduled PRN Cyclobenzaprine HCl (Cyclobenzaprine HCl), 10 MG PO TID PRN for MUSCLE SPASMS, (Reported) Fluticasone Propionate (Fluticasone Propionate), 1 SPRAY NSEACH DAILY PRN for CONGESTION, (Reported) Gabapentin (Gabapentin), 600 MG PO BID PRN for PAIN-BREAKTHROUGH, (Reported) Hydrocodone/Acetaminophen (Hydrocodone-Acetamin 5-325 mg), 1 EA PO Q4H PRN for PAIN-MODERATE (5-7), (Reported) Hydroxyzine HCl (Hydroxyzine HCl), 50 MG PO TID PRN for ANXIETY, (Reported) Discontinued Medications Amlodipine Besylate (Amlodipine Besylate), 10 MG PO DAILY, (Reported) Discontinued Reason: No Longer Taking Aspirin (Aspirin EC), 81 MG PO DAILY Discontinued Reason: No Longer Taking Atorvastatin Calcium (Lipitor), 40 MG PO HS Discontinued Reason: No Longer Taking Biotin (Biotin), 1 MG PO 1200, (Reported) Discontinued Reason: No Longer Taking Buspirone HCl (Buspirone HCl), 5 MG PO DAILY, (Reported) Discontinued Reason: No Longer Taking Buspirone HCl (Buspirone HCl), 7.5 MG PO HS, (Reported) Discontinued Reason: No Longer Taking Cholecalciferol (Vitamin D3) (Vitamin D3), 1,000 UNIT PO 1200, (Reported) Discontinued Reason: No Longer Taking Citalopram Hydrobromide (Citalopram HBr), 40 MG PO DAILY, (Reported) Discontinued Reason: No Longer Taking Diazepam (Valium), 2 MG PO Q12H PRN for ANXIETY Discontinued Reason: No Longer Taking Docusate Sodium (Colace), 200 MG PO HS, (Reported) Discontinued Reason: No Longer Taking Docusate Sodium (Colace), 100 MG PO DAILY, (Reported) Discontinued Reason: No Longer Taking Fentanyl (Fentanyl Patch 50 MCG), 50 MCG TD Q72H, (Reported) Discontinued Reason: No Longer Taking Ferrous Sulfate (Ferrous Sulfate), 325 MG PO HS, (Reported) Discontinued Reason: No Longer Taking Gabapentin (Gabapentin), 300-600 MG PO 1200 PRN for NERVE PAIN, (Reported) Discontinued Reason: No Longer Taking Gabapentin (Gabapentin), 900 MG PO HS, (Reported) Discontinued Reason: No Longer Taking Hydrocodone Bit/Acetaminophen (HYDROcodone/APAP 10/325 TABLET), 1 TAB PO Q6H PRN for PAIN-MODERATE, (Reported) Discontinued Reason: No Longer Taking Levothyroxine Sodium (Synthroid), 75 MCG PO DAILY@0630 Discontinued Reason: No Longer Taking Loratadine (Loratadine), 10 MG PO DAILY, (Reported) Discontinued Reason: No Longer Taking Multivitamin (Daily Multiple Vitamin), 1 TAB PO 1200, (Reported) Discontinued Reason: No Longer Taking Current Medications Current Medications Reviewed Review of Systems Constitutional: see HPI, malaise, weakness EENTM: no symptoms reported Respiratory: dyspnea on exertion, short of breath Cardiovascular: no symptoms reported Gastrointestinal: diarrhea, loss of appetite, nausea Genitourinary: no symptoms reported Musculoskeletal: back pain, joint pain Skin: no symptoms reported Psychiatric/Neurological: Anxiety, Depressed All Other Systems Reviewed Negative Unless Noted: Yes Physical Exam Physical Exam Vital Signs Capillary Refill : Height, Weight, BMI Height: 5'3.00" Weight: 160lbs. 7.0oz. [id number]; 26.36 BMI Method: General Appearance: No Apparent Distress, WD/WN, Anxious, Chronically ill Eyes: Bilateral Eye Normal Inspection, Bilateral Eye PERRL HEENT: PERRL/EOMI, Normal ENT Inspection, Pharynx Normal Neck: Full Range of Motion, Normal Inspection, Non Tender, Supple, Carotid Bruit Respiratory: Chest Non Tender, Lungs Clear, Normal Breath Sounds, No Accessory Muscle Use, No Respiratory Distress, Decreased Breath Sounds Cardiovascular: Regular Rate, Rhythm, No Edema, No Gallop, No JVD, No Murmur, Normal Peripheral Pulses Gastrointestinal: Normal Bowel Sounds, No Organomegaly, No Pulsatile Mass, Non Tender, Soft Back: Normal Inspection, No CVA Tenderness, No Vertebral Tenderness Extremity: Normal Capillary Refill, Normal Inspection, Normal Range of Motion, Non Tender, No Calf Tenderness, No Pedal Edema Neurologic/Psychiatric: Alert, Oriented x3, high school music instructor II-XII Norm as Tested, Abnormal Gait, Depressed Affect, Motor Weakness (generalized 3/5) Skin: Normal Color, Warm/Dry, Other (pressure ulcer left heel) Lymphatic: No Adenopathy PM&R Medical Assessment & Plan REHAB/MEDICAL ASSESSMENT AND PLAN: REHAB IMPAIRMENT GROUP: Debility with prior CVA ETIOLOGIC DIAGNOSIS: Debility with prior CVA The comorbidities that impact the patients function and/or functional outcome by: fear of falls, pressure ulcer heel, dehydration, diarrhea, prior CVA REHAB PLAN: The patient is being admitted to our comprehensive inpatient rehabilitation facility and can tolerate the intensity of service consisting of at least: 180 minutes of therapy a day, 5 out of 7 days a week Rehab treatment will consist of: PT OT will focus on regaining function with use of assistive devices in order to improve independence in order to go to assisted living The patient/family has a good understanding of our discharge process and will benefit from an interdisciplinary inpatient rehabilitation program. The patient has potential to make improvement and is in need of at least two of the following multidisciplinary therapies including but not limited to physical, occupational, speech, and prosthetics and orthotics. Additionally the patient will need services from respiratory, nutritional services, wound care, psychology, etc. (Customize this to each patient). Given the patients complex condition and risk of further medical complications, rehabilitation services cannot be safely or effectively provided at a lower level of care such as a prison facility. BARRIERS TO DISCHARGE: Falls ESTIMATED LOS: 10 days DISPOSITION: AL RELEVANT CHANGES SINCE PREADMISSION SCREENING: I have compared the patients medical and functional status at the time of the preadmission screening and there are: no changes PROGNOSIS: Fair REHABILITATION GOALS: 1. PT OT will focus on regaining function with use of assistive devices in order to improve independence in order to go to assisted living All the above goals were reviewed with the patient and he/she is in agreement. By signing this document, I acknowledge that I have personally performed a full physical examination on this patient within 24 hours of admission to this inpatient rehabilitation facility and have determined the patient to be able to tolerate the above course of treatment at an intensive level for a reasonable period of time. I will be completing a detailed individualized Plan of Care for this patient by day #4 of the patients stay based upon the Preadmission Screen, the Post-Admission Evaluation, and the therapy evaluations. Admission Dx/Comorbidities: (1) Dehydration Status: Acute ICD Codes: E86.0 - Dehydration (2) Diarrhea Status: Acute ICD Codes: R19.7 - Diarrhea, unspecified (3) Hypotension Status: Acute ICD Codes: I95.9 - Hypotension, unspecified (4) Cerebellar stroke ICD Codes: I63.9 - Cerebral infarction, unspecified Assessment/Plan Assessment and Plan Assess & Plan/Chief Complaint Assessment: Debility Dehydration Diarrhea Bacteremia placed on Unasyn Chronic pain on Fentanyl patch and Hydrocodone Multiple falls Left heel ulcer pressure type present prior to admit Bedridden h/o Left lacunar cerebellar infarct with gait imbalance and dyscoordination on the left 2016 HTN controlled Hypothyroidosm on replacement Post thoracotomy pain syndrome on pain meds Mild anemia 02 dependence s/p thoracotomy Plan: Home meds IVF Unasyn Repeat BCx PT OT O2 MECHELLE FOY DO Aug 22, 2021 11:09
[2021-08-22] MEDS ORDERED: DOCUSATE SODIUM 100 MG (COLACE) CAP PO PRN (11:15)
[2021-08-22] MEDS ORDERED: LACTULOSE SYRUP 10GM/15ML (ENULOSE) 30ML UDC PO PRN (11:15)
[2021-08-22] MEDS ORDERED: FLEET ENEMA ADULT 1 EA BTL PR PRN (11:15)
[2021-08-22] MEDS ORDERED: ALPRAZolam 0.25 MG (XANAX) TAB PO PRN (11:15)
[2021-08-22] MEDS ORDERED: diphenhydrAMINE 25 MG TAB (BENADRYL) PO PRN (11:15)
[2021-08-22] MEDS ORDERED: MELATONIN 3 MG TABLET PO PRN (11:15)
[2021-08-22] MEDS ORDERED: ACETAMINOPHEN 325 MG TABLET PO PRN (11:15)
[2021-08-22] MEDS ORDERED: LOPERAMIDE 2 MG (IMODIUM) TABLET PO PRN (11:15)
[2021-08-22] MEDS ORDERED: guaiFENesin/CODEINE (ROBITUSSIN AC) 10ML UDC PO PRN (11:15)
[2021-08-22] MEDS ORDERED: CALCIUM CARBONATE 500 MG (TUMS) TAB.CHEW PO PRN (11:15)
[2021-08-22] MEDS ORDERED: BISACODYL 10 MG SUPP (DULCOLAX) PR PRN (11:15)
[2021-08-22 11:40] VITALS: BP 82/51
[2021-08-22] MEDS ORDERED: HYDR50TA76 PO (11:47)
[2021-08-22] MEDS ORDERED: FENT1PAT9 TD (11:47)
[2021-08-22] MEDS ORDERED: ATOR40TA70 PO (11:47)
[2021-08-22] MEDS ORDERED: ASPI-1238 PO (11:47)
[2021-08-22] MEDS ORDERED: LEVO75TA6 PO (11:47)
[2021-08-22] MEDS ORDERED: ACHD5005 PO (11:47)
[2021-08-22] MEDS ORDERED: FLUT16SP22 NSEACH (11:47)
[2021-08-22] MEDS ORDERED: PARO10TA3 PO (11:48)
[2021-08-22] MEDS ORDERED: PARO40TA3 PO (11:48)
[2021-08-22 12:00] VITALS: BP 88/58
--- NOTE | 2021-08-22 12:03 | Occupational Therapy Eval ---
OT Evaluation-General/PLF Medical Diagnosis Admission Date Aug 22, 2021 at 11:25 Medical Diagnosis: debility Onset Date: Aug 21, 2021 Therapy Diagnosis Therapy Diagnosis: decreased ADL status and weakness Height/Weight Height (Feet): 5 Height (Inches): 3.00 Weight (Pounds): 160 Weight (Ounces): 7.0 Referral Physician: George Referral Reason: Evaluation/Treatment Medical History Pertinent Medical History: COPD, CVA, DM, HTN, Hypothroidism Additional Medical History HTN, CVA, HLD, hypothyroidism, COPD, arthritis, lung cancer (2008), anxiety, and depression. Current History Admitted to ED on 08/21 with c/o weakness and diarrhea, unable to get out of bed. Social History Home: Apartment (first floor) Current Living Status: Alone Entry Into Home: Stairs Without Railing Steps Into Home: 1 ADL-Prior Level of Function SCALE: Activities may be completed with or without assistive devices. 4-Pndgplrphn-dusekxf completes the activity by him/herself with no assistance from a helper. 5-Set-up or Clean-up Assistance-helper sets up or cleans up; patient completes activity. [place] assists only prior to or following the activity. 4-Supervision or Touching Assistance-helper provides verbal cues and/or touching/steadying and/or contact guard assistance as patient completes activity. Assistance may be provided throughout the activity or intermittently. 3-Partial/Moderate Assistance-helper does LESS THAN HALF the effort. [place] lifts, holds or supports trunk or limbs, but provides less than half the effort. 2-Substantial/Maximal Assistance-helper does MORE THAN HALF the effort. [place] lifts or holds trunk or limbs and provides more than half the effort. 8-Agofmccni-jpkhqn does ALL the effort. Patient does none of the effort to complete the activity. Or, the assistance of 2 or more helpers is required for the patient to complete the activity. If activity was not attempted, code reason: 7-Patient Refused. 9-Not Applicable-not attempted and the patient did not perform the activity before the current illness, exacerbation or injury. 10-Not Attempted due to Environmental Limitations-(lack of equipment, weather restraints, etc.). 88-Not Attempted due to Medical Conditions or Safety Concerns. ADL PLOF Comments Pt lives in apartment alone and says "it scares my family to ." She says that she was IND in ADLs prior to last summer, but "it has taken a nose dive since last summer." She only showers when she needs to because it takes her "like two hours" since she moves slowly trying to prevent falls. She has a SPC but does not use it. She is afraid of falling, says the safest way to prevent falls is "just don't get up." Self Care: Independent Functional Cognition: Independent DME/Equipment: Bath Bench, Shower (walk-in), Shower Hose [employer] Systems Administrator OT Current Status Subjective Pt reclined in bed prior to OT eval/tx. Pt c/o of dizziness and n/v, but agreeable to eval/tx. Pt hyperverbal, gets off task, but easily redirected. Mental Status/Objective Patient Orientation: Person, Place, Situation Attachments: [place] Catheter, IV, Oxygen Current Glasses/Contacts: Yes Hearing Aids: No Dentures/Partials: No Hand Dominance: Right Upper Extremity ROM WFL, Shoulder flexion is approximately 120 degrees bilaterally Upper Extremity Sensation Some residual sensation issues from past CVA, but pt reports no new UE sensory deficits. Upper Extremity Strength Bilateral elbow flex/exten: 4/5 Bilateral shoulder flexion: 3-/5 ADL-Treatment Eating (QC): 5 Oral Hygiene (QC): 5 Shower/Bathe Self (QC): 3 (Min A with standing balance, pt able to wash/dry all parts except buttocks.) Upper Body Dressing (QC): 3 (Cue for orientation of shirt, then min A pulling s pino down back. ) Lower Body Dressing (QC): 3 (Min A standing balance, pt able to manage pant hike and thread BLEs.) On/Off Footwear (QC): 3 (Pt able to doff, min A with donning gripper socks.) Toileting Hygiene (QC): 3 (Min A for balance, pt able to perform pericare and clothing management.) Other Treatments [id number]: OT evaluation complete. PT/OT cotreat d/t skill of 2 clinicians required which a sonography technician could not perform d/t complex medical needs of pt, decreased strength, activity tolerance, mobility/transfers. OT focused on ADLs, UE placement, cues for safety and sequencing, and PT focused on LE placement, gross overall movement, transfers, and mobility. Pt transferred from EOB to stand, Min A. She attempted to walk with FWW (5', CGA) but complained of lightheadedness and nausea, sat in w/c and taken to ARU therapy room. Pt attempted to walk with FWW in gym but got lightheaded and nauseous again. Pt pushed in w/c to room to answer further questions about PLOF and home environment and participate in UE screen. Pt left in recliner with call light in reach and all need met. Patient performs rolling with SBA, supine <-> sit min assist, sit <-> stand min assist, transfers min assist, car transfer mod assist. Patient needs cues for hand placement and safety. [id number] Cotreat: BP 87/35, 71 HR at start of tx, nurse aware. PT/OT cotreat d/t skill of 2 clinicians required which a sonography technician could not perform d/t complex medical needs of pt, decreased strength, activity tolerance, mobility/transfers, and low blood pressure. OT focused on ADLs, UE placement, cues for safety and sequencing, and PT focused on LE placement, gross overall movement, transfers, and mobility. Pt completed sponge bath seated in recliner with Min A for standing balance when drying off. Pt completed dressing while seated in recliner, requiring Min A for balance when standing to hike brief and pants. Post tx, pt in recliner, call light in reach and all needs met. Education OT Patient Education: Correct positioning, Energy conservation, Exercise p luca, Modified ADL techniques, Progress toward Goal/Update tx plan, Purpose of tx/functional activities, Rehab process Teaching Recipient: Patient Teaching Methods: Discussion Response to Teaching: Verbalize Understanding OT Short Term Goals Short Term Goals Time Frame: Sep 04, 2021 Toileting hygiene: 4 Shower/bathe self: 4 Lower body dressin Putting on/taking off footwear: 4 OT Assisted Goals Assisted Goals Time Frame: Sep 15, 2021 Eating (QC): 6 Oral Hygiene (QC): 6 Toileting Hygiene (QC): 6 Shower/Bathe Self (QC): 6 Upper Body Dressing (QC): 6 Lower Body Dressing (QC): 6 On/Off Footwear (QC): 6 Additional Goals: 1-Demonstrate ADL Tasks, 2-Verbalize Understanding, 3- ImproveStrength/Bright 1=Demonstrate adherence to instructed precautions during ADL tasks. 2=Patient will verbalize/demonstrate understanding of assistive devices/modifications for ADL. 3=Patient will improve strength/tolerance for activity to enable patient to perform ADL's. OT Education/Plan Problem List/Assessment Assessment: Decreased Activ Tolerance, Decreased UE Strength, Impaired Funct Balance, Impaired I ADL's, Impaired Self-Care Skills Discharge Recommendations Plan/Recommendations: Continue POC Treatment Plan/Plan of Care Patient would benefit from OT for education, treatment and training to promote independence in ADL's, mobility, safety and/or upper extremity function for ADL's. Plan of Care: ADL Retraining, Functional Mobility, Group Exercise/Act as Ind, UE Funct Exercise/Act Treatment Duration: Sep 15, 2021 Frequency: At least 5 of 7 days/Wk (IRF) Estimated Hrs Per Day: 1.5 hours per day Rehab Potential: Guarded Time/GCodes Start Time: 11:35 ([id number]) Stop Time: 13:30 ([id number]) Total Time Billed (hr/min): 75 Billed Treatment Time 0793-0904 OT eval, [id number] cotreat, [id number] Cotreat 1, EVM (10'), FA (15') 1, ADL 3 (50') MOODY BHATT OT Aug 22, 2021 12:03
[2021-08-22] MEDS ORDERED: NS IV 1000 ML 1,000 ML IV SCH (12:30)
[2021-08-22] MEDS ORDERED: GABAPENTIN 600 MG (NEURONTIN) TAB PO PRN (13:00)
[2021-08-22] MEDS ORDERED: RX-CYCLOBENZAPRINE 10 MG (FLEXERIL) TAB PPK#3 PO PRN (13:00)
[2021-08-22] MEDS ORDERED: FLUTICASONE NASAL SPRAY (FLONASE) 16 GM BTL NS PRN (13:00)
[2021-08-22] MEDS ORDERED: NON-FORMULARY MEDICATION 1 EA EA (Hydroxyzine HCl 50 MG) PO PRN (13:00)
[2021-08-22] MEDS ORDERED: hydrOXYzine (VISTARIL/ATARAX) 25 MG capsule/tablet PO PRN (13:15)
--- NOTE | 2021-08-22 13:40 | Physical Therapy Evaluation ---
PT Evaluation-General Medical Diagnosis Admission Date Aug 22, 2021 at 11:25 Medical Diagnosis: debility Onset Date: Aug 21, 2021 Therapy Diagnosis Therapy Diagnosis: impaired mobility Height/Weight Height (Feet): 5 Height (Inches): 3.00 Weight (Pounds): 160 Weight (Ounces): 7.0 Referral Physician: Mary Vazquez DO Reason for Referral: Evaluation/Treatment Medical History Pertinent Medical History: COPD, CVA, DM, HTN, Hypothroidism Reviewed History: Yes Social History Home: Apartment (first floor) Current Living Status: Alone Entry Into Home: Stairs Without Railing PT Steps Into Home: 1 Prior Prior Level of Function SCALE: Activities may be completed with or without assistive devices. 9-Mvvsvrlvvc-cszumzx completes the activity by him/herself with no assistance from a helper. 5-Set-up or Clean-up Assistance-helper sets up or cleans up; patient completes activity. [place] assists only prior to or following the activity. 4-Supervision or Touching Assistance-helper provides verbal cues and/or touching/steadying and/or contact guard assistance as patient completes activity. Assistance may be provided throughout the activity or intermittently. 3-Partial/Moderate Assistance-helper does LESS THAN HALF the effort. [place] lifts, holds or supports trunk or limbs, but provides less than half the effort. 2-Substantial/Maximal Assistance-helper does MORE THAN HALF the effort. [place] lifts or holds trunk or limbs and provides more than half the effort. 9-Fmiyothmi-cwzxsf does ALL the effort. Patient does none of the effort to complete the activity. Or, the assistance of 2 or more helpers is required for the patient to complete the activity. If activity was not attempted, code reason: 7-Patient Refused. 9-Not Applicable-not attempted and the patient did not perform the activity before the current illness, exacerbation or injury. 10-Not Attempted due to Environmental Limitations-(lack of equipment, weather restraints, etc.). 88-Not Attempted due to Medical Conditions or Safety Concerns. Bed Mobility: 6 Transfers (B,C,W/C): 6 Gait: 6 Stairs: 6 Indoor Mobility (Ambulation): Independent Stairs: Independent PT Evaluation-Current Subjective Patient in bed pre tx, agrees to PT, has no pain at rest except for a burn on her right thigh. Will be co-treating with OT for part of tx due to poor patient mobility, severe debility, coordinate UE and LE during activity, safety and reduce risk of falls. Pt/Family Goals to be independent at home Objective Patient Orientation: Person, Place, Situation Attachments: Oxygen ROM/Strength ROM Lower Extremities WNL Strength Lower Extremities LLE (hip flexion 3-/5, knee flexion 3+/5, knee extension 4-/5, dorsiflexion 3+/5), RLE (hip flexion 3-/5, knee flexion 3+/5, knee extension 4-/5, dorsiflexion 3+/5) Sensory Hearing: Functional Hand Dominance: Right Sensation Right Lower Extremit: Impaired Sensation Left Lower Extremity: Intact Transfers Roll Left & Right (QC): 4 Sit to Lying (QC): 3 Lying to Sitting/Side of Bed(Q: 3 Sit to Stand (QC): 3 Chair/Eeq-ma-Mhfgd Xfer(QC): 3 Toilet Transfer (QC): 3 Car Transfer (QC): 3 Patient performs rolling with SBA, supine <-> sit min assist, sit <-> stand min assist, transfers min assist, car transfer mod assist. Patient needs cues for hand placement and safety. Gait Walk 10 feet (QC): 88 Walk 50 ft with 2 Turns(QC): 88 Walk 150 ft (QC): 88 Walking 10ft/uneven surface-QC: 88 Distance: 5' Gait Assistive Device: FWW Comments/Gait Description Patient ambulated 5' with a rolling walker with CGA, couldn't go further due to nausea and fatigue. Patient has poor foot clearance, short steps. Wheelchair Training Does the Pt Use a Wheelchair?: Yes Wheel 50 ft with 2 turns (QC): 3 Wheel 150 ft (QC): 88 Stairs 1 Step (curb) (QC): 88 4 Steps (QC): 88 12 Steps (QC): 88 Balance Sitting Static: Normal Sitting Dynamic: Normal Standing Static: Fair Standing Dynamic: Fair Picking up an Object (QC): 88 Treatment PT performed bed mobility and transfers, ambulation, WC mobility, OT performed UE positioning and safety during activity, cues for safety. Assessment/Needs Patient in recliner post tx with nurse call, phone, tray, all needs met, to continue for a bit with OT. Rehab Potential: Fair PT Short Term Goals Short Term Goals Time Frame: Aug 29, 2021 Roll Left & Right: 6 Sit to lyin Lying to sitting on side of be: 4 Sit to stand: 4 Walk 10 feet: 4 PT Fpc Goals Assembly Person Goals PT Assembly Person Goals Time Frame: Sep 12, 2021 Roll Left & Right (QC): 6 Sit to Lying (QC): 6 Lying-Sitting on Side/Bed(QC): 6 Sit to Stand (QC): 4 (SBA) Chair/Zzr-hz-Qjqep Xfer(QC): 4 (SBA) Toilet Transfer (QC): 4 (SBA) Car Transfer (QC): 4 (SBA) Does the Patient Walk: Yes Walk 10 feet (QC): 4 (SBA) Walk 50ft with 2 Turns (QC): 4 (SBA) Walk 150 ft (QC): 88 Walking 10ft on Uneven Surface: 4 (SBA) 1 Step (curb) (QC): 4 (SBA) 4 Steps (QC): 88 12 Steps (QC): 88 Picking up an Object (QC): 4 (SBA using video production intern) Wheel 50 feet with 2 turns (QC: 9 Wheel 150 feet: 9 PT Plan Problem List Problem List: Activity Tolerance, Functional Strength, Safety, Balance, Gait, Transfer, Bed Mobility, ROM Treatment/Plan Treatment Plan: Continue Plan of Care Treatment Plan: Bed Mobility, Education, Functional Activity Bright, Functional Strength, Group Therapy, Gait, Safety, Therapeutic Exercise, Transfers Treatment Duration: Sep 12, 2021 Frequency: At least 5 of 7 days/Wk (IRF) Estimated Hrs Per Day: 1.5 hours per day Patient and/or Family Agrees t: Yes Safety Risks/Education Patient Education: Gait Training, Transfer Techniques, Correct Positioning, Safety Issues Teaching Recipient: Patient Teaching Methods: Demonstration, Discussion Response to Teaching: Reinforcement Needed Discharge Recommendations Plan Patient will perform bed mobility and transfer training, balance and endurance training, functional strengthening, stair training, gait training, and education, to improve functional mobility and independence at home. Therapy Discharge Recommendati: Scheduled Assistance, Home & Family, Post Acute PT Time/GCodes Time In: 1125 Time Out: 1200 Total Billed Treatment Time: 25 Total Billed Treatment 1 visit EVM 10' FA 15' PT eval from [id number], OT eval from [id number], co-treat from [id number] APRIL MUELLER PT Aug 22, 2021 13:40
[2021-08-22] MEDS: AMPICILLIN/SULBACTAM INJECTION 1.5 GM in NS (IVPB) 100 ML IV SCH ×2 (14:18→18:24)
--- NOTE | 2021-08-22 14:27 | Physical Therapy Daily Note ---
PT Daily Note-Current Subjective Pt sitting in recliner upon arrival. Pt agrees to PT/OT co-treat and BP monitored as pt reports not feeling well. Pain Location: Right Location Body Site: Thigh Comment: Reports soreness at burn site in outer R thigh and heel but not rated Mental Status Patient Orientation: Person, Confused, Situation Transfers SCALE: Activities may be completed with or without assistive devices. 0-Phsetuqyjy-abdfbkm completes the activity by him/herself with no assistance from a helper. 5-Set-up or Clean-up Assistance-helper sets up or cleans up; patient completes activity. [place] assists only prior to or following the activity. 4-Supervision or Touching Assistance-helper provides verbal cues and/or touching/steadying and/or contact guard assistance as patient completes activity. Assistance may be provided throughout the activity or intermittently. 3-Partial/Moderate Assistance-helper does LESS THAN HALF the effort. [place] lifts, holds or supports trunk or limbs, but provides less than half the effort. 2-Substantial/Maximal Assistance-helper does MORE THAN HALF the effort. [place] lifts or holds trunk or limbs and provides more than half the effort. 2-Hkwdqzzic-aehwcv does ALL the effort. Patient does none of the effort to complete the activity. Or, the assistance of 2 or more helpers is required for the patient to complete the activity. If activity was not attempted, code reason: 7-Patient Refused. 9-Not Applicable-not attempted and the patient did not perform the activity before the current illness, exacerbation or injury. 10-Not Attempted due to Environmental Limitations-(lack of equipment, weather restraints, etc.). 88-Not Attempted due to Medical Conditions or Safety Concerns. Sit to Stand (QC): 3 Weight Bearing Full Weight Bearing Full Weight Bearing Exercises Seated Therapy Exercises: Sit to stand Treatments [id number] [place]: BP 87/35, 71 HR at start of tx, nurse aware. PT/OT [place] d/t skill of 2 clinicians required which a clinical rehabilitation specialist could not perform d/t complex medical needs of pt, decreased strength, activity tolerance, mobility/transfers, and low blood pressure. OT focused on ADLs, UE placement, cues for safety and sequencing, and PT focused on LE placement, gross overall movement, transfers, and mobility. Pt completed sponge bath seated in recliner with Min A for standing balance when drying off. Pt completed dressing while seated in recliner, requiring Min A for balance when standing to hike brief and pants. Post tx, pt in recliner, call light in reach and all needs met. Assessment Current Status: Fair Progress Fatigues quickly. VC for sequencing at times. BP has remained low so monitored during tx char. after standing. PT Short Term Goals Short Term Goals Time Frame: Aug 29, 2021 Roll Left & Right: 6 Sit to lyin Lying to sitting on side of be: 4 Sit to stand: 4 Walk 10 feet: 4 PT First Front Ventilator Goals First Front Ventilator Goals PT Alf Goals Time Frame: Sep 12, 2021 Roll Left & Right (QC): 6 Sit to Lying (QC): 6 Lying-Sitting on Side/Bed(QC): 6 Sit to Stand (QC): 4 (SBA) Chair/Fer-jh-Alvgm Xfer(QC): 4 (SBA) Toilet Transfer (QC): 4 (SBA) Car Transfer (QC): 4 (SBA) Does the Patient Walk: Yes Walk 10 feet (QC): 4 (SBA) Walk 50ft with 2 Turns (QC): 4 (SBA) Walk 150 ft (QC): 88 Walking 10ft on Uneven Surface: 4 (SBA) 1 Step (curb) (QC): 4 (SBA) 4 Steps (QC): 88 12 Steps (QC): 88 Picking up an Object (QC): 4 (SBA using nail making machine setter) Wheel 50 feet with 2 turns (QC: 9 Wheel 150 feet: 9 PT Plan Problem List Problem List: Activity Tolerance, Functional Strength Treatment/Plan Treatment Plan: Continue Plan of Care Treatment Duration: Sep 12, 2021 Frequency: At least 5 of 7 days/Wk (IRF) Estimated Hrs Per Day: 1.5 hours per day Safety Risks/Education Patient Education: Transfer Techniques, Correct Positioning, Safety Issues Teaching Recipient: Patient Teaching Methods: Discussion Response to Teaching: Verbalize Understanding Time/GCodes Time In: 1240 Time Out: 1330 Total Billed Treatment Time: 50 Total Billed Treatment Co-treat w/OT for 50m 1, FA x3 (50m) MARCY CORTES SENIOR SALES REPRESENTATIVE Aug 22, 2021 14:27
--- NOTE | 2021-08-22 14:53 | ST Dysphagia Evaluation ---
Speech Evaluation-General Medical Diagnosis Debility Onset Date: Aug 21, 2021 Therapy Diagnosis Therapy Diagnosis: Intact Oropharyngeal Swallow Precautions Precautions: Fall, Aspiration Precautions/Isolations: Aspiration, Fall Prevention Referral Referring Physician: Dr. Vazquez Reason for Referral: Evaluation/Treatment Medical History Pertinent Medical History: COPD, CVA, DM, HTN, Hypothroidism Current History The patient is a 60 year old female with a past medical history of stroke (2017) and lung cancer (treated with a pneumonectomy), who presented to the ER with severe weakness and profound dehydration. Reviewed History: Yes Social History Current Living Status: Alone Speech PLF/Current-Dysphagia Prior Level of Function The patient stated she consumes a regular consistency diet with thin liquids at home. The patient denied s/s of suspected aspiration with P.O. consistencies consumed. The advanced nursing professor requested the clinician assess the patient's swallowing function as she had stated she "had choking" on specific items. The clinician visited with the patient and the patient stated she had difficulty swallowing immediately following her lung surgery and following her stroke in 2016. The patient denied current difficulties with the exception of taking smaller bites of food due to the poor condition of her dentition. Subjective The patient was seated upright in her recliner, awake and alert upon entrance to her room by the clinician. The patient greeted the clinician appropriately and was agreeable to participation in the clinical bedside swallowing evaluation. Cognitive Status Patient Orientation: Person, Place, Time, Situation Oral Motor Skills Dentition: Natural Current Food Consistancy: Regular, Thin Liquids Ability to Follow Directions: Good Oral Expression Ability: No Impairment Voice Voice Phonatory-Based Quality: Normal Voice Pitch: Normal Voice Loudness: Normal Face Facial Symmetry: Symmetrical Oral-Facial Assessment Oral-Facial Dentition: Normal Smile: Normal Lingual Protrusion: Normal Lingual ROM: Normal Lingual Strength: Normal Volitional Dry Swallow: Yes Voluntary Cough: Yes Can Clear Throat Volitionally: Yes Productive Cough: Yes Productive Throat Clear: Yes Dysphagia Evaluation Consistencies Presented: Regular, Thin Liquid Oral phase deficits were not present throughout the evaluation. Pharyngeal phase deficits were not present during the evaluation. The patient consumed her lunch tray of chicken tenders, ethiopian fries, and iced tea. No s/s of suspected aspiration were demonstrated with any consistency tested. Dietary Recommendations: Regular Liquid Recommendations: Thin Recommendations: - Regular consistency diet with thin liquids, as tolerated. - Fully upright and alert for PO intake. - Small bites and sips, only. - Monitor for s/s of suspected aspiration with PO intake. If demonstrated, contact speech pathology. The results and recommendations were discussed extensively with the patient, who verbalized comprehension of the discussion. Dysphagia Evaluation Summary The patient demonstrated an intact oropharyngeal swallow function. Speech-Plan Treatment Plan Speech Therapy Treatment Plan: Discontinue ST (Discontinue dysphagia services. Cognitive evaluation to follow.) Treatment Duration: Aug 22, 2021 Frequency: 1 time per week Estimated Hrs Per Day: .5 hour per day Rehab Potential: Fair Pt/Family Agrees to Plan: Yes Safety Risks/Education Teaching Recipient: Patient Teaching Methods: Discussion Response to Teaching: Verbalize Understanding Education Topics Provided: Results, Recommendations, Swallowing Strategies Time Speech Therapy Time In: 13:35 Speech Therapy Time Out: 14:05 Total Billed Time: 30 Billed Treatment Time 1, CHRISTAL REMY [facility] Aug 22, 2021 14:53
[2021-08-22 15:00] VITALS: BP 129/62
[2021-08-22] MEDS: NS IV 1000 ML 1,000 ML IV SCH (16:41)
[2021-08-22 16:59] VITALS: BP 123/64
[2021-08-22 19:27] VITALS: BP 102/62
[2021-08-22] MEDS: HYDROcodone/APAP 5 MG/325 MG (LORTAB) TAB PO PRN (20:03)
[2021-08-22] MEDS: SENNA W/DOCUSATE (SENOKOT S) TABLET PO SCH (20:03)
[2021-08-22] MEDS: polyethylene glycoL POWDER 17 GM (MIRALAX) PACK PO SCH (20:03)
[2021-08-22] MEDS: DOCUSATE SODIUM 100 MG (COLACE) CAP PO SCH (20:03)
[2021-08-22] MEDS: PANTOPRAZOLE 40 MG (PROTONIX) TAB PO SCH (20:03)
[2021-08-22] MEDS ORDERED: NON-FORMULARY MEDICATION 1 EA EA (Rabeprazole Sodium (Aciphex) 20 MG) PO SCH (21:00)
[2021-08-23] MEDS: AMPICILLIN/SULBACTAM INJECTION 1.5 GM in NS (IVPB) 100 ML IV SCH ×4 (01:02→18:44)
[2021-08-23] MEDS: NS IV 1000 ML 1,000 ML IV SCH ×3 (04:49→18:44)
--- NOTE | 2021-08-23 06:04 | PM&R Progress Note ---
Subjective HPI/CC On Admission Date Seen by Provider: Aug 23, 2021 Time Seen by Provider: 10:00 Subjective/Events-last exam 08/23/21: Pt is doing a little better Keep garcia in for accurate I's and O's Balance is very poor Normal saline at 100 ccs an hour Unison initiated Blood cultures no growth today that I redrew yesterday Review of Systems General: Fatigue Gastrointestinal: Diarrhea Objective Exam Vital Signs Vital Signs Date Time Temp Pulse Resp B/P (MAP) Pulse Ox O2 Delivery O2 Flow Rate FiO2 08/23/21 20:00 36.4 80 16 122/79 (93) 100 Nasal Cannula 2.00 Capillary Refill : General Appearance: No Apparent Distress, WD/WN, Anxious, Chronically ill HEENT: PERRL/EOMI, Normal ENT Inspection, Pharynx Normal Neck: Full Range of Motion, Normal Inspection, Non Tender, Supple, Carotid Bruit Respiratory: Chest Non Tender, Lungs Clear, Normal Breath Sounds, No Accessory Muscle Use, No Respiratory Distress, Decreased Breath Sounds Cardiovascular: Regular Rate, Rhythm, No Edema, No Gallop, No JVD, No Murmur, Normal Peripheral Pulses Gastrointestinal: Normal Bowel Sounds, No Organomegaly, No Pulsatile Mass, Non Tender, Soft Back: Normal Inspection, No CVA Tenderness, No Vertebral Tenderness Extremity: Normal Capillary Refill, Normal Inspection, Normal Range of Motion, Non Tender, No Calf Tenderness, No Pedal Edema Neurologic/Psychiatric: Alert, Oriented x3, wire mesh knitter II-XII Norm as Tested, Abnormal Gait, Depressed Affect, Motor Weakness (generalized 3/5) Skin: Normal Color, Warm/Dry, Other (pressure ulcer left heel) Lymphatic: No Adenopathy Results/Procedures Lab Laboratory Tests 08/23/21 06:02 Patient resulted labs reviewed. FIM Transfers Therapy Code Descriptions/Definitions Functional Lester Measure: 0=Not Assessed/NA 4=Minimal Assistance 1=Total Assistance 5=Supervision or Setup 2=Maximal Assistance 6=Modified Lester 3=Moderate Assistance 7=Complete IndependenceSCALE: Activities may be completed with or without assistive devices. 5-Kgtqeuwfni-mfwydbj completes the activity by him/herself with no assistance from a helper. 5-Set-up or Clean-up Assistance-helper sets up or cleans up; patient completes activity. [place] assists only prior to or following the activity. 4-Supervision or Touching Assistance-helper provides verbal cues and/or touching/steadying and/or contact guard assistance as patient completes activity. Assistance may be provided throughout the activity or intermittently. 3-Partial/Moderate Assistance-helper does LESS THAN HALF the effort. [place] lifts, holds or supports trunk or limbs, but provides less than half the effort. 2-Substantial/Maximal Assistance-helper does MORE THAN HALF the effort. [place] lifts or holds trunk or limbs and provides more than half the effort. 4-Dvaaxxuyx-lyzpan does ALL the effort. Patient does none of the effort to complete the activity. Or, the assistance of 2 or more helpers is required for the patient to complete the activity. If activity was not attempted, code reason: 7-Patient Refused. 9-Not Applicable-not attempted and the patient did not perform the activity before the current illness, exacerbation or injury. 10-Not Attempted due to Environmental Limitations-(lack of equipment, weather restraints, etc.). 88-Not Attempted due to Medical Conditions or Safety Concerns. Roll Left to Right (QC): 4 Sit to Lying (QC): 3 Sit to Stand (QC): 3 Chair/Sjw-ty-Qdayt Xfer(QC): 3 Car Transfer (QC): 3 Gait Training Walk 10 feet (QC): 88 Walk 50 ft with 2 Turns(QC): 88 Walk 150 ft (QC): 88 Walking 10ft/uneven surface-QC: 88 Gait Assistive Device: FWW Wheelchair Training Does the Pt Use a Wheelchair?: Yes Wheel 50 ft with 2 turns (QC): 3 Wheel 150 ft (QC): 88 Type of Wheelchair: Manual Stair Training 1 Step (curb) (QC): 88 4 Steps (QC): 88 12 Steps (QC): 88 Balance Picking up an Object (QC): 88 ADL-Treatment Eating (QC): 5 Oral Hygiene (QC): 5 Shower/Bathe Self (QC): 3 (Min A with standing balance, pt able to wash/dry all parts except buttocks.) Upper Body Dressing (QC): 3 (Cue for orientation of shirt, then min A pulling s pino down back. ) Lower Body Dressing (QC): 3 (Min A standing balance, pt able to manage pant hike and thread BLEs.) On/Off Footwear (QC): 3 (Pt able to doff, min A with donning gripper socks.) Toileting Hygiene (QC): 3 (Min A for balance, pt able to perform pericare and clothing management.) Assessment/Plan Assessment and Plan Assess & Plan/Chief Complaint Assessment: Debility Dehydration Diarrhea Bacteremia placed on Unasyn Chronic pain on Fentanyl patch and Hydrocodone Multiple falls Left heel ulcer pressure type present prior to admit Bedridden h/o Left lacunar cerebellar infarct with gait imbalance and dyscoordination on the left 2016 HTN controlled Hypothyroidosm on replacement Post thoracotomy pain syndrome on pain meds Mild anemia 02 dependence s/p thoracotomy Plan: Home meds IVF Unasyn Repeat BCx PT OT O2 08/23: Stool studies IVF Unasyn Monitor closely (1) Dehydration Status: Acute (2) Diarrhea Status: Acute (3) Hypotension Status: Acute (4) Cerebellar stroke MECHELLE FOY DO Aug 23, 2021 06:04
--- NOTE | 2021-08-23 06:04 | Individualized Plan of Care ---
Individualized Plan of Care Rehab Nursing IPOC Order Admission Date Aug 22, 2021 at 11:25 Current Orders Orders Admission Order(Inpt,Obs,Sdc) (08/22/21 11:06) Vital Signs: Per Unit Policy ( 08,16,00 (08/22/21 11:06) Gavin Centeno (08/22/21 11:06) Sequential Compression Device (08/22/21 11:06) Athlete Marketing Agent-Inpt Rehab Con (08/22/21 11:06) Rehab Nursing Orders-Ipoc (08/22/21 11:06) Physical Therapy Rehab Orders (08/22/21 11:06) Occupational Therapy Rehab Ord (08/22/21 11:06) Speech Therapy Rehab Orders (08/22/21 11:06) Cbc With Automated Diff (08/23/21 06:00) Comprehensive Metabolic Panel (08/23/21 06:00) Precautions (Aru) (08/22/21 11:06) Weekly Weight WEEK (08/22/21 11:06) Rehab-Intensity Of Therapy (08/22/21 11:06) Initiate Admission Nursing Pro .admission (08/22/21 11:06) Alprazolam Tablet (Xanax Tablet) (08/22/21 11:15) Calcium Carbonate Chew Tablet (Antacid C (08/22/21 11:15) Diphenhydramine Tablet (Benadryl Tablet) (08/22/21 11:15) Docusate Sodium Capsule (Colace Capsule) (08/22/21 21:00) Docusate Sodium Capsule (Colace Capsule) (08/22/21 11:15) Bisacodyl Suppository (Dulcolax Supposit (08/22/21 11:15) Lactulose Oral Solution (Enulose Oral So (08/22/21 11:15) Na Phos/Na Biphos Enema (Fleet Enema Jamie (08/22/21 11:15) Guaifenesin/Codeine Syrup (Robitussin Ac (08/22/21 11:15) Loperamide Tablet (Imodium Tablet) (08/22/21 11:15) Melatonin Tablet (Melatonin Tablet) (08/22/21 11:15) Polyethylene Glycol Powder Pkt (Miralax (08/22/21 21:00) Ondansetron Oral Dissolve Tab (Zofran (08/22/21 11:15) Senna S Tablet (Senokot S Tablet) (08/22/21 21:00) Acetaminophen Tablet/Caplet (Tylenol T (08/22/21 11:15) Admission Arrival Bed Request (08/22/21 11:44) Ns Iv 1000 Ml (Sodium Chloride 0.9%) (08/22/21 12:30) Procalcitonin (Pct) (08/22/21 12:29) Thyroid Stimulating Hormone (08/22/21 12:29) Blood Culture (08/22/21 12:58) Ampicillin/Sulbactam Injection (Unasyn 1 (08/22/21 13:00) Ns Iv 1000 Ml (Sodium Chloride 0.9%) (08/22/21 13:00) Aspirin Enteric Coated Tablet (Ecotrin T (08/23/21 09:00) Atorvastatin Tablet (Lipitor Tablet) (08/22/21 21:00) Rx-Cyclobenzaprine Tablet (Rx-Flexeril T (08/22/21 13:00) Fluticasone Nasal [place] (Flonase Nasal S (08/22/21 13:00) Gabapentin Capsule/Tablet (Neurontin Cap (08/22/21 13:00) Hydrocodone/Apap 5/325 Tablet (Lortab 5 (08/22/21 13:00) Levothyroxine Tablet (Synthroid Tablet) (08/23/21 06:30) Metoprolol Succinate (Xl) Tab (Toprol Xl (08/23/21 09:00) Paroxetine Tablet (Paxil Tablet) (08/23/21 09:00) (Nf) Hydroxyzine Hcl (08/22/21 13:00) (Nf) Paroxetine Hcl (08/23/21 09:00) (Nf) Rabeprazole Sodium (Aciphex) (08/22/21 21:00) General/Regular (08/22/21 Lunch) Pantoprazole Tablet (Protonix Tablet) (08/22/21 21:00) Cyclobenzaprine Tablet (Flexeril Tablet) (08/22/21 13:15) Hydroxyzine Cap/Tab (Vistaril) (08/22/21 13:15) Paroxetine Tablet (Paxil Tablet) (08/23/21 09:00) Fentanyl Patch (Duragesic Patch) (08/24/21 09:00) Patch Removal (Patch Removal) (08/24/21 08:59) Patient Visit (08/22/21 ) Pt Eval Moderate Complexity (08/22/21 ) Functional Activities, Ea 15 (08/22/21 ) Patient Visit (08/22/21 ) Functional Activities, Ea 15 (08/22/21 ) Patient Visit (08/22/21 ) Dysphagia Evaluation Std (08/22/21 ) Dysphagia Therapy (08/22/21 ) Isolation Central Supply Req (08/22/21 16:26) Ensure Plus Vanilla (08/22/21 16:26) Silver Sulfadiazine 400 Gm (Ssd 1% 400 G (08/23/21 09:00) Consult Wound Care Physician (08/22/21 16:26) Potassium Chloride (Tablet) (K Dur Table (08/23/21 09:30) Potassium Chloride (Tablet) (K Dur Table (08/24/21 07:00) Patient Visit (08/23/21 ) Speech Sound Lang Comp (08/23/21 ) Treat. Speech/Lang/Voice (08/23/21 ) Occult Blood Stool (08/23/21 13:28) Stool Culture (08/23/21 13:28) Fecal Wbc (08/23/21 13:28) C Difficile Ag + Toxin A/B. (08/23/21 13:28) Patient Visit (08/23/21 ) Exercise Therap, Ea 15 Min (08/23/21 ) Functional Activities, Ea 15 (08/23/21 ) Gait Training, Ea 15 Min (08/23/21 ) Collagenase Ointment (Santyl Ointment) (08/23/21 21:00) Dressing Order (Intervention) BID (08/23/21 15:03) Dressing Order (Intervention) BID (08/23/21 15:03) Hypochlorous Acid/Sod Chloride (Vashe Wo (08/23/21 21:00) Rehab Nursing Orders: Ongoing Assess. of Cognitive Status, Ongoing Assess. of Function Status, Bladder Management, Bladder Scan, Bladder Training, Bowel Management, Bowel Training, Disease Management & Educaiton, DVT Prophylaxis, Fall Prevention, Fluid/Electrolyte/Nutrition Mgmt, Infection Prevention, Medication Management & Education, Management of Risks & Complications, Management of Skin Intergrity, Nutrition Management, Pain Management, Patient/Family Support, Safety Management, Wound Management Intensity of Therapy to be met Patient to be seen: Min.3h per day/5 of 7d PT IPOC Problem List: Activity Tolerance, Functional Strength Treatment Plan: Continue Plan of Care Bed Mobility, Education, Functional Activity Bright, Functional Strength, Group Therapy, Gait, Safety, Therapeutic Exercise, Transfers Treatment Duration: Sep 12, 2021 Frequency: At least 5 of 7 days/Wk (IRF) Estimated Hrs Per Day: 1.5 hours per day OT IPOC Problems: Decreased Activ Tolerance, Decreased UE Strength, Impaired Funct Balance, Impaired I ADL's, Impaired Self-Care Skills OT Treatment, Training and Edu: Yes Plan of Care: ADL Retraining, Functional Mobility, Group Exercise/Act as Ind, UE Funct Exercise/Act Treatment Duration: Sep 15, 2021 Frequency: At least 5 of 7 days/Wk (IRF) Estimated Hrs Per Day: 1.[address] IPOC Speech Therapy Treatment Plan: Continue Plan of Care Treatment Duration: Aug 22, 2021 Frequency: 4 times per week Estimated Hrs Per Day: .5 hour per day Athlete Marketing Agent/Case Mgmt Athlete Marketing Agent/Case Managemen: Discharge Planning Dietitian/Prepress Specialist Dietitian/Prepress Specialist to monitor nutritional status and make changes and/or recommendations as needed and work with speech pathology on dietary upgrades as the occur. Physician IPOC Medical Issues being managed closely and that require the 24 hour availability of a physician: Recent profound dehydration and bacteremia on prelim BCx and continued diarrhea will be at high risk for decompensation Medical Issues: Bowel/Bladder Function, DVT Prophylaxis, Falls Precautions, Fluid/Electrolyte/Nutrition Balance, Infection Protection, Pain Management, Wound Care Brief Synthesis of Preadmission Screen, Post-Admission Evaluation, and Therapy Evaluations: PT OT will focus on regaining function in order to regain enough independence to be admitted to assisted living while using assistive devices Medical Prognosis: Good Anticipated Length of Stay: 7 days MECHELLE FOY DO Aug 23, 2021 06:04
[2021-08-23 06:12] LABS: BASOPHILS # (AUTO) 0.1 10^3/uL (0.0-0.1); BASOPHILS % (AUTO) 1 % (0-10); EOSINOPHILS # (AUTO) 0.2 10^3/uL (0.0-0.3); EOSINOPHILS % (AUTO) 2 % (0-10); HEMATOCRIT 32 % (35-52); HEMOGLOBIN 10.2 g/dL (11.5-16.0); LYMPHOCYTES # (AUTO) 1.7 10^3/uL (1.0-4.0); LYMPHOCYTES % (AUTO) 24 % (12-44); MEAN CORPUSCULAR HEMOGLOBIN 33 pg (25-34); MEAN CORPUSCULAR HGB CONC 32 g/dL (32-36); MEAN CORPUSCULAR VOLUME 102 fL (80-99); MEAN PLATELET VOLUME 10.7 fL (9.0-12.2); MONOCYTES # (AUTO) 0.7 10^3/uL (0.0-1.0); MONOCYTES % (AUTO) 10 % (0-12); NEUTROPHILS # (AUTO) 4.3 10^3/uL (1.8-7.8); NEUTROPHILS % (AUTO) 62 % (42-75); PLATELET COUNT 310 10^3/uL (130-400)
[2021-08-23] MEDS: LEVOTHYROXINE 75 MCG (LEVOTHROID) TABLET PO SCH (06:27)
[2021-08-23 06:29] LABS: POTASSIUM 3.1 MMOL/L (3.6-5.0)
[2021-08-23 06:30] LABS: CALCIUM 7.2 MG/DL (8.5-10.1)
[2021-08-23 06:32] LABS: TOTAL PROTEIN 5.1 GM/DL (6.4-8.2)
[2021-08-23 06:33] LABS: BILIRUBIN,TOTAL 0.7 MG/DL (0.1-1.0)
[2021-08-23 06:35] LABS: CREATININE SERUM 0.93 MG/DL (0.60-1.30)
[2021-08-23 07:34] VITALS: BP 127/86
--- NOTE | 2021-08-23 08:58 | Physical Therapy Daily Note ---
PT Daily Note-Current Subjective Pt. in bed, agrees to Rx, states she is having pain in her IV site in left wrist. This pain c/o escalates during the Rx and nurse is called as IV site changes and becomes more red and swollen. Pt. also c/o nausea as she begins to be more upright, as well as dizziness and the need to rest her head and trunk against something secondary to fatigue. Pain Numeric Pain Scale: 6 Location: Left Location Body Site: Wrist Pain Description: Burning Appearance red swollen IV site, chin rests on chest, very kyphotic in sit and stand stance Mental Status Patient Orientation: Person, Place, Situation Attachments: Oxygen (2L), IV Transfers SCALE: Activities may be completed with or without assistive devices. 5-Afixnkerta-ahqwjkx completes the activity by him/herself with no assistance from a helper. 5-Set-up or Clean-up Assistance-helper sets up or cleans up; patient completes activity. [place] assists only prior to or following the activity. 4-Supervision or Touching Assistance-helper provides verbal cues and/or touching/steadying and/or contact guard assistance as patient completes activity. Assistance may be provided throughout the activity or intermittently. 3-Partial/Moderate Assistance-helper does LESS THAN HALF the effort. [place] lifts, holds or supports trunk or limbs, but provides less than half the effort. 2-Substantial/Maximal Assistance-helper does MORE THAN HALF the effort. [place] lifts or holds trunk or limbs and provides more than half the effort. 0-Qrkwkunsx-ommcnd does ALL the effort. Patient does none of the effort to complete the activity. Or, the assistance of 2 or more helpers is required for the patient to complete the activity. If activity was not attempted, code reason: 7-Patient Refused. 9-Not Applicable-not attempted and the patient did not perform the activity before the current illness, exacerbation or injury. 10-Not Attempted due to Environmental Limitations-(lack of equipment, weather restraints, etc.). 88-Not Attempted due to Medical Conditions or Safety Concerns. Roll Left & Right (QC): 6 Lying to Sitting/Side of Bed(Q: 6 Sit to Stand (QC): 4 Chair/Lda-ye-Uvbgc Xfer(QC): 4 CGA for sit to stand and chair to bed etc secondary to c/o extreme weakness and c/o dizziness etc Weight Bearing Full Weight Bearing Full Weight Bearing Gait Training Does the Patient Walk?: Yes Walk 10 feet (QC): 4 Gait Persons Needed: 1 Gait Assistive Device: FWW pt. ambulated 5 ft x2 and 6 feet with FWW but was cut short secondary to c/o extreme weakness and dizziness. see recordings below. Exercises Supine Ex: Bridging, Ankle pumps, Quad Set, Rolling, Glut sets, Heel Slides, Short Arc Quads, Straight leg raise, Hip abd/add Supine Reps: 10 (x2) Seated Therapy Exercises: Ankle pumps, Sit to stand, Long arc quads, Hip flexion Seated Reps: 12 Treatments bed ex in supine and sit, sat EOB SBA, after up EOB approx 5m pt. c/o extreme weakness and inability to even keep mouth shut as in mandible to maxilla etc. Pt. states she feels so weak she needs to rest her head on her chest and really needs something to lean on . sit to stands with further c/o and need to sit, nursing to room to assess infiltrated IV etc. BP in sitting with feet on [id number], attempted to get standing BP but pt. unable to stand long enough to obtain it. Up in lift recline after Rx with nurse present. Assessment Current Status: Fair Progress limited josafat for Rx secondary to weakness and hypotension PT Short Term Goals Short Term Goals Time Frame: Aug 29, 2021 Roll Left & Right: 6 Sit to lyin Lying to sitting on side of be: 4 Sit to stand: 4 Walk 10 feet: 4 PT [facility] Goals [facility] Goals PT [facility] Goals Time Frame: Sep 12, 2021 Roll Left & Right (QC): 6 Sit to Lying (QC): 6 Lying-Sitting on Side/Bed(QC): 6 Sit to Stand (QC): 4 (SBA) Chair/Vly-iw-Xwcgx Xfer(QC): 4 (SBA) Toilet Transfer (QC): 4 (SBA) Car Transfer (QC): 4 (SBA) Does the Patient Walk: Yes Walk 10 feet (QC): 4 (SBA) Walk 50ft with 2 Turns (QC): 4 (SBA) Walk 150 ft (QC): 88 Walking 10ft on Uneven Surface: 4 (SBA) 1 Step (curb) (QC): 4 (SBA) 4 Steps (QC): 88 12 Steps (QC): 88 Picking up an Object (QC): 4 (SBA using dude wrangler) Wheel 50 feet with 2 turns (QC: 9 Wheel 150 feet: 9 PT Plan Treatment/Plan Treatment Plan: Continue Plan of Care Treatment Plan: Bed Mobility, Education, Functional Activity Bright, Functional Strength, Group Therapy, Gait, Safety, Therapeutic Exercise, Transfers Treatment Duration: Sep 12, 2021 Frequency: At least 5 of 7 days/Wk (IRF) Estimated Hrs Per Day: 1.5 hours per day Patient and/or Family Agrees t: Yes Safety Risks/Education Patient Education: Gait Training, Transfer Techniques, Correct Positioning, Disease Process, Safety Issues Teaching Recipient: Patient Teaching Methods: Demonstration, Discussion Response to Teaching: Verbalize Understanding, Return Demonstration, Reinforcement Needed Time/GCodes Time In: 745 Time Out: 900 Total Billed Treatment Time: 75 Total Billed Treatment 1,GT10m,FA35m,EX30m ELO MAIER [employer]NAL CONTROLS SPECIALIST Aug 23, 2021 08:58
[2021-08-23] MEDS ORDERED: NON-FORMULARY MEDICATION 1 EA EA (Paroxetine HCl 40 MG) PO SCH (09:00)
[2021-08-23] MEDS ORDERED: KCL 20 MEQ TAB (K-DUR) PO ONE (09:30)
[2021-08-23] MEDS: meTOprolol SUCCINATE 100 MG (TOPROL XL) TAB PO SCH ×3 (09:47→11:54)
[2021-08-23] MEDS: PARoxetine 20 MG (PAXIL) TAB PO SCH (09:47)
[2021-08-23] MEDS: DOCUSATE SODIUM 100 MG (COLACE) CAP PO SCH ×2 (09:47→20:49)
[2021-08-23] MEDS: PANTOPRAZOLE 40 MG (PROTONIX) TAB PO SCH ×2 (09:47→20:49)
[2021-08-23] MEDS: SENNA W/DOCUSATE (SENOKOT S) TABLET PO SCH ×2 (09:48→20:50)
[2021-08-23] MEDS: ASPIRIN E.C. 81 MG (ECOTRIN) TAB PO SCH (09:48)
[2021-08-23] MEDS: polyethylene glycoL POWDER 17 GM (MIRALAX) PACK PO SCH ×2 (09:48→20:50)
[2021-08-23] MEDS: PARoxetine 10 MG (PAXIL) TAB PO SCH (09:48)
[2021-08-23] MEDS: SILVER SULFADIAZINE 400 GM CREAM TOP SCH (09:49)
--- NOTE | 2021-08-23 10:19 | Occupational Ther Daily Note ---
OT Current Status-Daily Note Subjective Pt seated in recliner prior to tx. Pt agreeable to OT tx. Mental Status/Objective Patient Orientation: Person, Place, Situation Attachments: [place]ara Catheter, Oxygen ADL-Treatment Therapy Code Descriptions/Definitions Functional [place] Measure: 0=Not Assessed/NA 4=Minimal Assistance 1=Total Assistance 5=Supervision or Setup 2=Maximal Assistance 6=Modified [place] 3=Moderate Assistance 7=Complete IndependenceSCALE: Activities may be completed with or without assistive devices. 2-Urlioyohqc-pvbzyci completes the activity by him/herself with no assistance from a helper. 5-Set-up or Clean-up Assistance-helper sets up or cleans up; patient completes activity. [place] assists only prior to or following the activity. 4-Supervision or Touching Assistance-helper provides verbal cues and/or touching/steadying and/or contact guard assistance as patient completes activity. Assistance may be provided throughout the activity or intermittently. 3-Partial/Moderate Assistance-helper does LESS THAN HALF the effort. [place] lifts, holds or supports trunk or limbs, but provides less than half the effort. 2-Substantial/Maximal Assistance-helper does MORE THAN HALF the effort. [place] lifts or holds trunk or limbs and provides more than half the effort. 7-Jubitxhzs-riimmg does ALL the effort. Patient does none of the effort to complete the activity. Or, the assistance of 2 or more helpers is required for the patient to complete the activity. If activity was not attempted, code reason: 7-Patient Refused. 9-Not Applicable-not attempted and the patient did not perform the activity before the current illness, exacerbation or injury. 10-Not Attempted due to Environmental Limitations-(lack of equipment, weather restraints, etc.). 88-Not Attempted due to Medical Conditions or Safety Concerns. Oral Hygiene (QC): 6 (seated in w/c at bathroom sink) Other Treatment Pt transferred from recliner to w/c, [facility]. Pt independently completed oral hygiene and grooming tasks seated at bathroom sink, required RB in between tasks to catch her breath. Pt wheeled w/c to therapy gym, requiring min v/c's to take rest breaks when needed and alternate propelling between arms and legs. Pt receptive to idea. Pt completed 10mins (5 morfin resistance) seated on arm bike, no RBs. Pt completed two designs on peg board with 1lb wrist weights to increase BUE strength and activity tolerance. Pt pushed back to room in w/c. Pt transferred from w/c to bed with CGA-min A due to fatigue. Pt left in bed with call light in reach and all needs met. Education OT Patient Education: Correct positioning, Energy conservation, Exercise program, Modified ADL techniques, Progress toward Goal/Update tx plan, Purpose of tx/functional activities, Rehab process, Safety issues, W/C management Teaching Recipient: Patient Teaching Methods: Discussion Response to Teaching: Verbalize Understanding OT Short Term Goals Short Term Goals Time Frame: Sep 04, 2021 Toileting hygiene: 4 Shower/bathe self: 4 Lower body dressin Putting on/taking off footwear: 4 OT Commercial [employer] Instructor Goals [employer] Instructor Goals Time Frame: Sep 15, 2021 Eating (QC): 6 Oral Hygiene (QC): 6 Toileting Hygiene (QC): 6 Shower/Bathe Self (QC): 6 Upper Body Dressing (QC): 6 Lower Body Dressing (QC): 6 On/Off Footwear (QC): 6 Additional Goals: 1-Demonstrate ADL Tasks, 2-Verbalize Understanding, 3-Improv eStrength/Bright 1=Demonstrate adherence to instructed precautions during ADL tasks. 2=Patient will verbalize/demonstrate understanding of assistive devices/modifications for ADL. 3=Patient will improve strength/tolerance for activity to enable patient to p erform ADL's. OT Education/Plan Problem List/Assessment Assessment: Decreased Activ Tolerance, Decreased UE Strength, Impaired Funct Balance, Impaired I ADL's, Impaired Self-Care Skills Discharge Recommendations Plan/Recommendations: Continue POC Treatment Plan/Plan of Care Patient would benefit from OT for education, treatment and training to promote independence in ADL's, mobility, safety and/or upper extremity function for ADL's. Plan of Care: ADL Retraining, Functional Mobility, Group Exercise/Act as Ind, U E Funct Exercise/Act Treatment Duration: Sep 15, 2021 Frequency: At least 5 of 7 days/Wk (IRF) Estimated Hrs Per Day: 1.5 hours per day Rehab Potential: Fair Time/GCodes Start Time: 09:00 Stop Time: 10:15 Total Time Billed (hr/min): 75 Billed Treatment Time 1, ADL 2 (40'), Ex (10'), FA 2 (25') MOODY BHATT OT Aug 23, 2021 10:19
--- NOTE | 2021-08-23 13:25 | ST Cognitive Linguistic Eval ---
Speech Evaluation-General Medical Diagnosis Debility Onset Date: Aug 21, 2021 Therapy Diagnosis Therapy Diagnosis: Intact Neurocognition Precautions Precautions: Fall Precautions/Isolations: Fall Prevention, Standard Precautions Referral Referring Physician: Dr. Vazquez Reason for Referral: Evaluation/Treatment Medical History Pertinent Medical History: COPD, CVA, DM, HTN, Hypothroidism Current History The patient is a 60 year old female with a past medical history of stroke (2017) and lung cancer (treated with a pneumonectomy), who presented to the ER with severe weakness and profound dehydration. Reviewed History: Yes Social History Current Living Status: Alone Speech PLF-Current Status Prior Level of Function The patient reported she experienced mild dysarthria and memory difficulties following her stroke in 2017. The patient stated her speech, language, and cognition have returned to baseline and she does experience any current acute deficits or difficulties in the listed areas. Subjective The patient was seated upright in bed, awake and alert upon entrance to her room by the clinician. The patient greeted the clinician appropriately and was agre eable to participation in the cognitive linguistic assessment. Language Eval: Auditory Comprehends Simple Yes/No Ques: Functional Indent/Objects Multiple Simmons: Functional Ident/Pics in Multiple Simmons: Functional Follows 1-Step Commands: Functional Follows Complex Directions: Functional Follows General Conversations: Functional Language Eval: Verbal Language Completes Spontaneous Greeting: Functional Produces Auto, Serial Info: Functional Imitates Simple Words/Phrases: Functional Word Finding: Functional Requests Basic Needs: Functional States Basic Personal Info: Functional Expresses Complex Ideas: Functional Language Evaluation: Reading Follows Simple Written Direct: Functional Language Evaluation: Writing Writes to Simple Dictation: Functional Cognitive Patient Orientation The patient was independently oriented to self, location, month, day of week, da te, and year. Objective Cognitive Domain Attention: WNL Memory: Mild Problem Solving: Functional Composite Severity Rating: WNL Clock Drawing Severity Rating: WNL Objective Formal/Standardized Tests [facility] Mental Status Examination (UMS) Results The patient demonstrated a result of +27/30 correlating to a neurocognitive result within normal limits. Oral Motor/Speech Production The patient does not display dysarthria or apraxia of speech at this time. The patient is 100% intelligible in known and unknown contexts. Impression The patient demonstrated intact neurocognitive skills with slightly reduced memory and word-finding abilities. As the patient displayed minimal difficulties, the clinician discussed with the patient the option of speech pathology skilled treatment to target the areas identified. At this time, the patient politely deferred treatment stating she was at her baseline function. Speech Patient Assess Expression of Ideas/Wants: Expression (4) Understanding Verbal Content: Understands (4) Brief Interview-Mental Status: Yes Repetition of Three Words: Three (3) Temporal Orientation: Year: Correct (3) Temporal Orientation: Month: Accurate within 5 days(2) Temporal Orientation: Day: Correct (1) Recall : Wear to say "Sock": Yes, no cue required (2) Recall : Color: Yes, no cue required (2) Recall : Bed: Yes, no cue required (2) Memory/Recall Ability: Current season, Location of own room, Staff names and faces, That he or she is in a hsp/hsp unit Speech-Plan Treatment Plan Speech Therapy Treatment Plan: Discontinue ST Treatment Duration: Aug 22, 2021 Frequency: 1 time per week Estimated Hrs Per Day: .5 hour per day Rehab Potential: Fair Pt/Family Agrees to Plan: Yes Safety Risks/Education Teaching Recipient: Patient Teaching Methods: Discussion Response to Teaching: Verbalize Understanding Education Topics Provided: Results, Recommendations, Plan of Care Time Speech Therapy Time In: 10:30 Speech Therapy Time Out: 11:00 Total Billed Time: 30 Billed Treatment Time 1, REHANA CERVANTES [facility] Aug 23, 2021 13:25
--- NOTE | 2021-08-23 15:15 | Wound Care Assessment ---
Wound Care Assessment Date Seen by Provider: Aug 23, 2021 Time Seen by Provider: 15:07 Chief Complaint 1. Stage 3 pressure ulcer R. heel 2. Partial thickness burn R. thigh HPI This pleasant 60 year old female was admitted to the hospital with dehydration, diarrheal illness and debility. She notes she is gaining strength daily. She has recently experienced a weight loss with acute illness. Her albumin is low (see labs). She is eating well. She does have a h/o COPD, lung cancer and CVA. She has decreased mobility as a result. She does also have macrocytic anemia. It would be reasonable to further work this up as an outpatient (char. if wounds are difficult to heal). She has no h/o DM2. Past Medical History: Admits Cancer, Treaments COPD with h/o lung CA, CVA history Smoking Status: Former Smoker Recreational Drug Use: No Alcohol Use: Denies Use Review of Systems Neurological: Weakness Exam Vital Signs Date Time Temp Pulse Resp B/P (MAP) Pulse Ox O2 Delivery O2 Flow Rate FiO2 08/23/21 09:00 Nasal Cannula 2.00 08/23/21 07:34 36.1 80 16 127/86 (100) 95 Capillary Refill : General Appearance: WD/WN, no apparent distress Cardiovascular: no edema Respiratory: no respiratory distress, no accessory muscle use Extremities: no pedal edema Neurologic/Psychiatric: alert, normal mood/affect, oriented x 3 Skin: normal color, warm/dry Wound assessment 1. R. calcaneal ulcer: 3x2.5x0.1cm. The epithelialization is none. There is no tunneling or undermining. Drainage is large and serous. Granulation is small and pink. Necrotic is large with slough and eschar. There is an associated hemorrhagic blister in periwound. Margins are flat. 2. R. upper thigh burn: 4x5x0.1. The epithelialization is small. There is no tunneling or undermining. Drainage is large and serous. Granulation is large and pink. Necrotic is small and slough. The wound margins are flat Results Laboratory Tests 08/23/21 06:02: White Blood Count 7.0, Red Blood Count 3.14L, Hemoglobin 10.2L, Hematocrit 32L, Mean Corpuscular Volume 102H, Mean Corpuscular Hemoglobin 33, Mean Corpuscular Hemoglobin Concent 32, Red Cell Distribution Width 18.4H, Platelet Count 310, Mean Platelet Volume 10.7, Immature Granulocyte % (Auto) 1, Neutrophils (%) (Auto) 62, Lymphocytes (%) (Auto) 24, Monocytes (%) (Auto) 10, Eosinophils (%) (Auto) 2, Basophils (%) (Auto) 1, Neutrophils # (Auto) 4.3, Lymphocytes # (Auto) 1.7, Monocytes # (Auto) 0.7, Eosinophils # (Auto) 0.2, Basophils # (Auto) 0.1, Immature Granulocyte # (Auto) 0.1, Sodium Level 137, Potassium Level 3.1L, Chloride Level 101, Carbon Dioxide Level 26, Anion Gap 10, Blood Urea Nitrogen 6L, Creatinine 0.93, Estimat Glomerular Filtration Rate 70, BUN/Creatinine Ratio 6, Glucose Level 100, Calcium Level 7.2L, Corrected Calcium 8.8, Total Bilirubin 0.7, Aspartate Amino Transf (AST/SGOT) 37H, Alanine Aminotransferase (ALT/SGPT) 46, Alkaline Phosphatase 184H, Total Protein 5.1L, Albumin 2.0L Assessment/Plan/Dx Assessment: 1. Stage 3 Pressure ulcer R. calcaneus 2. Partial thickness burn R. upper thigh 3. PEM 4. Immobility 5. Macrocytic Anemia Plan: 1. Cleanse daily with vashe. Apply Santyl to wound bed. Cover with heel BFD and change bid. Float with Primo boots 2. Cleanse daily with vashe. Apply silvadene to wound bed. Cover with BFD. Salazar ge twice daily 3. Protein shakes tid 4. Agree with PT recs 5. Consider further outpatient workup and treatment as indicated. RAPHAEL ALFARO MD Aug 23, 2021 15:15
[2021-08-23 20:00] VITALS: BP 122/79
[2021-08-23] MEDS: HYPOCHLOROUS ACID/NaCl (VASHE) 250 ML IR SCH (20:49)
[2021-08-23] MEDS: COLLAGENASE 30 GM (SANTYL) TUBE TP SCH (20:50)
[2021-08-24 00:26] VITALS: BP 122/79
[2021-08-24] MEDS: AMPICILLIN/SULBACTAM INJECTION 1.5 GM in NS (IVPB) 100 ML IV SCH ×2 (00:42→06:06)
--- NOTE | 2021-08-24 05:46 | PM&R Progress Note ---
Subjective HPI/CC On Admission Date Seen by Provider: Aug 24, 2021 Time Seen by Provider: 12:00 Subjective/Events-last exam 08/24/21: Pt is doing really well Discontinue the Unasyn due to blood culture repeat, no growth today Loose bowel movement, sent down the stool studies Discontinue the garcia and hep lock IV fluid today 08/23/21: Pt is doing a little better Keep garcia in for accurate I's and O's Balance is very poor Normal saline at 100 ccs an hour Unison initiated Blood cultures no growth today that I redrew yesterday Review of Systems General: Fatigue, Malaise Neurological: Weakness Objective Exam Vital Signs Vital Signs Date Time Temp Pulse Resp B/P (MAP) Pulse Ox O2 Delivery O2 Flow Rate FiO2 08/24/21 20:46 Nasal Cannula 2.00 08/24/21 19:32 36.6 94 16 117/78 (91) 98 Capillary Refill : General Appearance: No Apparent Distress, WD/WN, Anxious, Chronically ill HEENT: PERRL/EOMI, Normal ENT Inspection, Pharynx Normal Neck: Full Range of Motion, Normal Inspection, Non Tender, Supple, Carotid Bruit Respiratory: Chest Non Tender, Lungs Clear, Normal Breath Sounds, No Accessory Muscle Use, No Respiratory Distress, Decreased Breath Sounds Cardiovascular: Regular Rate, Rhythm, No Edema, No Gallop, No JVD, No Murmur, Normal Peripheral Pulses Gastrointestinal: Normal Bowel Sounds, No Organomegaly, No Pulsatile Mass, Non Tender, Soft Back: Normal Inspection, No CVA Tenderness, No Vertebral Tenderness Extremity: Normal Capillary Refill, Normal Inspection, Normal Range of Motion, Non Tender, No Calf Tenderness, No Pedal Edema Neurologic/Psychiatric: Alert, Oriented x3, application penetration tester II-XII Norm as Tested, Abnormal Gait, Depressed Affect, Motor Weakness (generalized 3/5) Skin: Normal Color, Warm/Dry, Other (pressure ulcer left heel) Lymphatic: No Adenopathy Results/Procedures Lab Patient resulted labs reviewed. FIM Transfers Therapy Code Descriptions/Definitions Functional [place] Measure: 0=Not Assessed/NA 4=Minimal Assistance 1=Total Assistance 5=Supervision or Setup 2=Maximal Assistance 6=Modified [place] 3=Moderate Assistance 7=Complete IndependenceSCALE: Activities may be completed with or without assistive devices. 5-Uqcylxnfcu-dzkykfl completes the activity by him/herself with no assistance from a helper. 5-Set-up or Clean-up Assistance-helper sets up or cleans up; patient completes a ctivity. [place] assists only prior to or following the activity. 4-Supervision or Touching Assistance-helper provides verbal cues and/or touching/steadying and/or contact guard assistance as patient completes activity. Assistance may be provided throughout the activity or intermittently. 3-Partial/Moderate Assistance-helper does LESS THAN HALF the effort. [place] lifts, holds or supports trunk or limbs, but provides less than half the effort. 2-Substantial/Maximal Assistance-helper does MORE THAN HALF the effort. [place] lifts or holds trunk or limbs and provides more than half the effort. 8-Xeodxdxsn-ocrlcp does ALL the effort. Patient does none of the effort to complete the activity. Or, the assistance of 2 or more helpers is required for the patient to complete the activity. If activity was not attempted, code reason: 7-Patient Refused. 9-Not Applicable-not attempted and the patient did not perform the activity before the current illness, exacerbation or injury. 10-Not Attempted due to Environmental Limitations-(lack of equipment, weather restraints, etc.). 88-Not Attempted due to Medical Conditions or Safety Concerns. Roll Left to Right (QC): 6 Sit to Lying (QC): 3 Sit to Stand (QC): 4 Chair/Cjs-qy-Ulfyi Xfer(QC): 4 Car Transfer (QC): 3 Gait Training Does the Patient Walk?: Yes Walk 10 feet (QC): 4 Walk 50 ft with 2 Turns(QC): 88 Walk 150 ft (QC): 88 Walking 10ft/uneven surface-QC: 88 Gait Persons Needed: 1 Gait Assistive Device: FWW Wheelchair Training Does the Pt Use a Wheelchair?: Yes Wheel 50 ft with 2 turns (QC): 3 Wheel 150 ft (QC): 88 Type of Wheelchair: Manual Stair Training 1 Step (curb) (QC): 88 4 Steps (QC): 88 12 Steps (QC): 88 Balance Picking up an Object (QC): 88 ADL-Treatment Eating (QC): 5 Oral Hygiene (QC): 6 (seated in w/c at bathroom sink) Shower/Bathe Self (QC): 3 (Min A with standing balance, pt able to wash/dry all parts except buttocks.) Upper Body Dressing (QC): 3 (Cue for orientation of shirt, then min A pulling shirt down back. ) Lower Body Dressing (QC): 3 (Min A standing balance, pt able to manage pant hike and thread BLEs.) On/Off Footwear (QC): 3 (Pt able to doff, min A with donning gripper socks.) Toileting Hygiene (QC): 3 (Min A for balance, pt able to perform pericare and clothing management.) Assessment/Plan Assessment and Plan Assess & Plan/Chief Complaint Assessment: Debility Dehydration Diarrhea Bacteremia placed on Unasyn now disproved so DC abx Chronic pain on Fentanyl patch and Hydrocodone Multiple falls Left heel ulcer pressure type present prior to admit Bedridden h/o Left lacunar cerebellar infarct with gait imbalance and dyscoordination on the left 2016 HTN controlled Hypothyroidosm on replacement Post thoracotomy pain syndrome on pain meds Mild anemia O2 dependence s/p thoracotomy Plan: Home meds IVF Unasyn Repeat BCx PT OT O2 08/23: Stool studies IVF Unasyn Monitor closely 08/24/21: Monitor closely DC IVF Anders LANDIN (1) Dehydration Status: Acute (2) Diarrhea Status: Acute (3) Hypotension Status: Acute (4) Cerebellar stroke MECHELLE FOY DO Aug 24, 2021 05:46
[2021-08-24 05:52] LABS: BASOPHILS % (AUTO) 1 % (0-10); EOSINOPHILS # (AUTO) 0.2 10^3/uL (0.0-0.3); EOSINOPHILS % (AUTO) 3 % (0-10); HEMATOCRIT 29 % (35-52); HEMOGLOBIN 9.3 g/dL (11.5-16.0); LYMPHOCYTES # (AUTO) 1.7 10^3/uL (1.0-4.0); LYMPHOCYTES % (AUTO) 28 % (12-44); MEAN CORPUSCULAR HEMOGLOBIN 33 pg (25-34); MEAN CORPUSCULAR HGB CONC 32 g/dL (32-36); MEAN CORPUSCULAR VOLUME 101 fL (80-99); MEAN PLATELET VOLUME 10.6 fL (9.0-12.2); MONOCYTES # (AUTO) 0.7 10^3/uL (0.0-1.0); MONOCYTES % (AUTO) 10 % (0-12); NEUTROPHILS # (AUTO) 3.6 10^3/uL (1.8-7.8); NEUTROPHILS % (AUTO) 58 % (42-75); PLATELET COUNT 310 10^3/uL (130-400); WHITE BLOOD COUNT 6.3 10^3/uL (4.3-11.0)
[2021-08-24 06:01] LABS: ALBUMIN 1.9 GM/DL (3.2-4.5); POTASSIUM 3.1 MMOL/L (3.6-5.0)
[2021-08-24 06:02] LABS: CALCIUM 7.2 MG/DL (8.5-10.1)
[2021-08-24 06:04] LABS: TOTAL PROTEIN 4.8 GM/DL (6.4-8.2)
[2021-08-24 06:05] LABS: BILIRUBIN,TOTAL 0.6 MG/DL (0.1-1.0)
[2021-08-24 06:07] LABS: CREATININE SERUM 0.78 MG/DL (0.60-1.30)
[2021-08-24] MEDS: LEVOTHYROXINE 75 MCG (LEVOTHROID) TABLET PO SCH (06:07)
[2021-08-24] MEDS ORDERED: KCL 20 MEQ TAB (K-DUR) PO SCH (07:00)
[2021-08-24] MEDS: HYDROcodone/APAP 5 MG/325 MG (LORTAB) TAB PO PRN ×2 (07:30→13:01)
[2021-08-24] MEDS: KCL 20 MEQ TAB (K-DUR) PO SCH ×3 (07:31→17:21)
[2021-08-24] MEDS: fentaNYL PATCH 50 MCG (DURAGESIC) TD SCH (07:31)
[2021-08-24] MEDS: DOCUSATE SODIUM 100 MG (COLACE) CAP PO SCH ×2 (07:31→20:31)
[2021-08-24] MEDS: SENNA W/DOCUSATE (SENOKOT S) TABLET PO SCH ×2 (07:32→20:31)
[2021-08-24] MEDS: PARoxetine 20 MG (PAXIL) TAB PO SCH (07:32)
[2021-08-24] MEDS: PANTOPRAZOLE 40 MG (PROTONIX) TAB PO SCH ×2 (07:32→20:31)
[2021-08-24] MEDS: PARoxetine 10 MG (PAXIL) TAB PO SCH (07:32)
[2021-08-24] MEDS: HYPOCHLOROUS ACID/NaCl (VASHE) 250 ML IR SCH ×2 (07:33→20:40)
[2021-08-24] MEDS: COLLAGENASE 30 GM (SANTYL) TUBE TP SCH ×2 (07:33→20:41)
[2021-08-24] MEDS: ASPIRIN E.C. 81 MG (ECOTRIN) TAB PO SCH (07:33)
[2021-08-24] MEDS: POTASSIUM CL 10MEQ/50ML IVPB 50 ML IV SCH ×5 (07:34→11:33)
[2021-08-24] MEDS: NS IV 1000 ML 1,000 ML IV SCH (07:34)
[2021-08-24] MEDS: FENTANYL PATCH REMOVAL TP SCH (07:34)
[2021-08-24] MEDS: polyethylene glycoL POWDER 17 GM (MIRALAX) PACK PO SCH ×2 (07:42→20:31)
[2021-08-24] MEDS: SILVER SULFADIAZINE 400 GM CREAM TOP SCH (07:43)
[2021-08-24 08:00] VITALS: BP 109/65
--- NOTE | 2021-08-24 08:59 | Physical Therapy Daily Note ---
PT Daily Note-Current Subjective pt. slumped in bed eating brkfst and states it just arrived. Much discussion and education regarding possible DC to asst living and what the expectations might be there for her mobility and function. Pt. is accustomed in the past to using long O2 tubing and concentrator in her home. Pt. very slow eater so education regarding safety and awareness was highlighted Pain Location: No Pain Reported Mental Status Patient Orientation: Person, Place, Time, Situation Attachments: Oxygen (2L), Garcia Catheter, IV Transfers SCALE: Activities may be completed with or without assistive devices. 5-Xwokdqgnvq-nsdpldo completes the activity by him/herself with no assistance from a helper. 5-Set-up or Clean-up Assistance-helper sets up or cleans up; patient completes activity. [place] assists only prior to or following the activity. 4-Supervision or Touching Assistance-helper provides verbal cues and/or touching/steadying and/or contact guard assistance as patient completes activity. Assistance may be provided throughout the activity or intermittently. 3-Partial/Moderate Assistance-helper does LESS THAN HALF the effort. [place] lifts, holds or supports trunk or limbs, but provides less than half the effort. 2-Substantial/Maximal Assistance-helper does MORE THAN HALF the effort. [place] lifts or holds trunk or limbs and provides more than half the effort. 6-Myaelqvne-zepwdx does ALL the effort. Patient does none of the effort to complete the activity. Or, the assistance of 2 or more helpers is required for the patient to complete the activity. If activity was not attempted, code reason: 7-Patient Refused. 9-Not Applicable-not attempted and the patient did not perform the activity before the current illness, exacerbation or injury. 10-Not Attempted due to Environmental Limitations-(lack of equipment, weather restraints, etc.). 88-Not Attempted due to Medical Conditions or Safety Concerns. Roll Left & Right (QC): 6 Lying to Sitting/Side of Bed(Q: 6 Sit to Stand (QC): 4 Chair/Zks-rh-Dpmvy Xfer(QC): 4 Toilet Transfer (QC): 4 pt. requires instruction for safe sit to stand from bed and safe stand to sit at toilet, to use wall rail and control descent Weight Bearing Full Weight Bearing Full Weight Bearing Gait Training Does the Patient Walk?: Yes Walk 10 feet (QC): 4 Walk 50 ft with 2 Turns(QC): 4 Gait Persons Needed: 1 Gait Assistive Device: FWW assist for extended O2 tubing and management of garcia and IV, short steps, some asst to steer AD Exercises Supine Ex: Ankle pumps, Scooting, Hip abd/add Supine Reps: 12 Seated Therapy Exercises: Long arc quads Seated Reps: 8 Treatments pt in bed for brkfst and education regarding DC expectations, TRF out of bed, upon getting out of bed strng BM odor noted, Pt. had very large loose BM , aftr pt. walked to bthrm, pants pulled down, large amt BM all over garcia and LEs , gait belt her blouse etc. Pt. touchng items etc. Help was summoned from nursing to manage. pt. stating she did not know she had gone , no sensation she had gone. pt. wass put in shower by nursing. With regards to discussion about asst living, ext O2 tubing was obtained and the plan will be to work a great deal on pt. using FWW and managing tubing safely as well as strengthening for dly mobility Assessment Current Status: Good Progress more stable on feet today, no SOB, good appetite, leasing director working on making sure meals arrive before scheduled rehab time to allow for more Rx . pt. seems up beat and motivated to progress PT Short Term Goals Short Term Goals Time Frame: Aug 29, 2021 Roll Left & Right: 6 Sit to lyin Lying to sitting on side of be: 4 Sit to stand: 4 Walk 10 feet: 4 PT Usp Goals Line Camera Operator Goals PT Usp Goals Time Frame: Sep 12, 2021 Roll Left & Right (QC): 6 Sit to Lying (QC): 6 Lying-Sitting on Side/Bed(QC): 6 Sit to Stand (QC): 4 (SBA) Chair/Wzn-on-Fqmnn Xfer(QC): 4 (SBA) Toilet Transfer (QC): 4 (SBA) Car Transfer (QC): 4 (SBA) Does the Patient Walk: Yes Walk 10 feet (QC): 4 (SBA) Walk 50ft with 2 Turns (QC): 4 (SBA) Walk 150 ft (QC): 88 Walking 10ft on Uneven Surface: 4 (SBA) 1 Step (curb) (QC): 4 (SBA) 4 Steps (QC): 88 12 Steps (QC): 88 Picking up an Object (QC): 4 (SBA using division controller) Wheel 50 feet with 2 turns (QC: 9 Wheel 150 feet: 9 PT Plan Treatment/Plan Treatment Plan: Continue Plan of Care Treatment Plan: Bed Mobility, Education, Functional Activity Bright, Functional Strength, Group Therapy, Gait, Safety, Therapeutic Exercise, Transfers Treatment Duration: Sep 12, 2021 Frequency: At least 5 of 7 days/Wk (IRF) Estimated Hrs Per Day: 1.5 hours per day Patient and/or Family Agrees t: Yes Safety Risks/Education Patient Education: Gait Training, Transfer Techniques, Correct Positioning, Disease Process, Safety Issues Teaching Recipient: Patient Teaching Methods: Demonstration, Discussion Response to Teaching: Verbalize Understanding, Return Demonstration, Reinforcement Needed Time/GCodes Time In: 800 Time Out: 900 Total Billed Treatment Time: 60 Total Billed Treatment 1,FA35m,GT10m,EX15m ELO MAIER MECHANICAL INTEGRITY ENGINEER Aug 24, 2021 08:59
--- NOTE | 2021-08-24 10:28 | Occupational Ther Daily Note ---
OT Current Status-Daily Note Subjective OT took over tx following incontinent episode with PT, pt in shower upon OT arrival, agreeable to continued therapy tx. Mental Status/Objective Patient Orientation: Person, Place, Situation Attachments: [place] Catheter, IV, Oxygen ADL-Treatment Therapy Code Descriptions/Definitions Functional [place] Measure: 0=Not Assessed/NA 4=Minimal Assistance 1=Total Assistance 5=Supervision or Setup 2=Maximal Assistance 6=Modified [place] 3=Moderate Assistance 7=Complete IndependenceSCALE: Activities may be completed with or without assistive devices. 2-Fokcnnzoqw-tayzurt completes the activity by him/herself with no assistance from a helper. 5-Set-up or Clean-up Assistance-helper sets up or cleans up; patient completes activity. [place] assists only prior to or following the activity. 4-Supervision or Touching Assistance-helper provides verbal cues and/or touching/steadying and/or contact guard assistance as patient completes activity. Assistance may be provided throughout the activity or intermittently. 3-Partial/Moderate Assistance-helper does LESS THAN HALF the effort. [place] lifts, holds or supports trunk or limbs, but provides less than half the effort. 2-Substantial/Maximal Assistance-helper does MORE THAN HALF the effort. [place] lifts or holds trunk or limbs and provides more than half the effort. 5-Usnesnkft-vhfqur does ALL the effort. Patient does none of the effort to complete the activity. Or, the assistance of 2 or more helpers is required for the patient to complete the activity. If activity was not attempted, code reason: 7-Patient Refused. 9-Not Applicable-not attempted and the patient did not perform the activity before the current illness, exacerbation or injury. 10-Not Attempted due to Environmental Limitations-(lack of equipment, weather restraints, etc.). 88-Not Attempted due to Medical Conditions or Safety Concerns. Oral Hygiene (QC): 6 Other Treatment Pt in shower after incontinent episode upon OT arrival. Nursing present and assisted with washing pt due to incontinent episode, pt wanting to get out of the shower. Pt declined washing her hair on this date d/t n/v, and dizziness. OT assisted pt with donning clothing due to pt's fatigue, n/v, and dizziness (no QC scores due to pt not given opportunity to attempt herself), she transferred to / with min A. OT assisted pt with standing and positioning while nursing completed wound care/dressing changes. Pt independently completed oral hygiene tasks seated in w/c. Pt pushed to therapy gym in w/c, completed 10min (20 morfin of resistance) seated on arm bike, and participated in a dynamic standing balance activity with graded clothespins to simulate hiking pants for LBD. Pt required Min A sit<>stand and completed two rounds, retrieving 4-5 pins with BUE each time, RB needed between rounds. Pt pushed back to room in w/c. Min A transfer to bed due to fatigue, SBA sit to supine. Post tx, pt left in bed with call light in reach and all needs met. Education OT Patient Education: Correct positioning, Energy conservation, Exercise program, Modified ADL techniques, Progress toward Goal/Update tx plan, Purpose of tx/functional activities, Rehab process, Transfer techniques Teaching Recipient: Patient Teaching Methods: Discussion Response to Teaching: Verbalize Understanding OT Short Term Goals Short Term Goals Time Frame: Sep 04, 2021 Toileting hygiene: 4 Shower/bathe self: 4 Lower body dressin Putting on/taking off footwear: 4 OT Attorney Goals Halfway Goals Time Frame: Sep 15, 2021 Eating (QC): 6 Oral Hygiene (QC): 6 Toileting Hygiene (QC): 6 Shower/Bathe Self (QC): 6 Upper Body Dressing (QC): 6 Lower Body Dressing (QC): 6 On/Off Footwear (QC): 6 Additional Goals: 1-Demonstrate ADL Tasks, 2-Verbalize Understanding, 3- ImproveStrength/Bright 1=Demonstrate adherence to instructed precautions during ADL tasks. 2=Patient will verbalize/demonstrate understanding of assistive devices/modifications for ADL. 3=Patient will improve strength/tolerance for activity to enable patient to perform ADL's. OT Education/Plan Problem List/Assessment Assessment: Decreased Activ Tolerance, Decreased UE Strength, Impaired Funct Balance, Impaired I ADL's, Impaired Self-Care Skills Discharge Recommendations Plan/Recommendations: Continue POC Treatment Plan/Plan of Care Patient would benefit from OT for education, treatment and training to promote independence in ADL's, mobility, safety and/or upper extremity function for ADL's. Plan of Care: ADL Retraining, Functional Mobility, Group Exercise/Act as Ind, UE Funct Exercise/Act Treatment Duration: Sep 15, 2021 Frequency: At least 5 of 7 days/Wk (IRF) Estimated Hrs Per Day: 1.5 hours per day Rehab Potential: Fair Time/GCodes Start Time: 09:00 Stop Time: 10:30 Total Time Billed (hr/min): 90 Billed Treatment Time 1, ADL 4 (60'), Ex (10'), FA (20') MOODY BHATT OT Aug 24, 2021 10:28
[2021-08-24] MEDS: meTOprolol SUCCINATE 100 MG (TOPROL XL) TAB PO SCH (10:32)
--- NOTE | 2021-08-24 15:05 | Physical Therapy Daily Note ---
PT Daily Note-Current Subjective At initially entering room for Rx pt requests to have time pushed back as she hadnt eaten that long ago and would like to let her stomach settle. Upon return pt. agrees to rx but is hesitant. Pt. shares /admits that she layed in bed and "just pooed or urinated and just let it happen" prior to this admit. Pain Location: No Pain Reported Mental Status Patient Orientation: Normal For Age Attachments: Oxygen (2L) nurse DCs IV and garcia at Rx time Transfers SCALE: Activities may be completed with or without assistive devices. 4-Eukfxxvlsy-hpybwwo completes the activity by him/herself with no assistance from a helper. 5-Set-up or Clean-up Assistance-helper sets up or cleans up; patient completes activity. [place] assists only prior to or following the activity. 4-Supervision or Touching Assistance-helper provides verbal cues and/or touching/steadying and/or contact guard assistance as patient completes activity. Assistance may be provided throughout the activity or intermittently. 3-Partial/Moderate Assistance-helper does LESS THAN HALF the effort. [place] lifts, holds or supports trunk or limbs, but provides less than half the effort. 2-Substantial/Maximal Assistance-helper does MORE THAN HALF the effort. [place] lifts or holds trunk or limbs and provides more than half the effort. 7-Aqguclgym-kanxdm does ALL the effort. Patient does none of the effort to complete the activity. Or, the assistance of 2 or more helpers is required for the patient to complete the activity. If activity was not attempted, code reason: 7-Patient Refused. 9-Not Applicable-not attempted and the patient did not perform the activity before the current illness, exacerbation or injury. 10-Not Attempted due to Environmental Limitations-(lack of equipment, weather restraints, etc.). 88-Not Attempted due to Medical Conditions or Safety Concerns. Sit to Stand (QC): 4 reviewed safe sit to stand and use of hands as well as safe approach Weight Bearing Full Weight Bearing Full Weight Bearing Gait Training Does the Patient Walk?: Yes Walk 50 ft with 2 Turns(QC): 4 Gait Persons Needed: 1 Gait Assistive Device: FWW gait 100ft x 2 FWW slow, with one incident of crossover at turn and min LOB requiring min to mod asst to recover, educated pt on maintaining broader DONN while turning for safety Exercises Seated Therapy Exercises: Ankle pumps, Sit to stand, Long arc quads, Hip flexion, Hip abd/add Seated Reps: 12 Treatments GT, TRFs, LE ex, in recliner after Rx with education that sitting up with LEs dangling at times can help with strengthening. call espinoza at hand afer Rx Assessment Current Status: Good Progress fatigues easily, attempting to educate pt for better realistic preparation for asst living PT Short Term Goals Short Term Goals Time Frame: Aug 29, 2021 Roll Left & Right: 6 Sit to lyin Lying to sitting on side of be: 4 Sit to stand: 4 Walk 10 feet: 4 PT Senior Care Goals Vibrating Screed Operator Goals PT Vibrating Screed Operator Goals Time Frame: Sep 12, 2021 Roll Left & Right (QC): 6 Sit to Lying (QC): 6 Lying-Sitting on Side/Bed(QC): 6 Sit to Stand (QC): 4 (SBA) Chair/Ocf-zu-Clrpr Xfer(QC): 4 (SBA) Toilet Transfer (QC): 4 (SBA) Car Transfer (QC): 4 (SBA) Does the Patient Walk: Yes Walk 10 feet (QC): 4 (SBA) Walk 50ft with 2 Turns (QC): 4 (SBA) Walk 150 ft (QC): 88 Walking 10ft on Uneven Surface: 4 (SBA) 1 Step (curb) (QC): 4 (SBA) 4 Steps (QC): 88 12 Steps (QC): 88 Picking up an Object (QC): 4 (SBA using textile conversion manager) Wheel 50 feet with 2 turns (QC: 9 Wheel 150 feet: 9 PT Plan Treatment/Plan Treatment Plan: Continue Plan of Care Treatment Plan: Bed Mobility, Education, Functional Activity Bright, Functional Strength, Group Therapy, Gait, Safety, Therapeutic Exercise, Transfers Treatment Duration: Sep 12, 2021 Frequency: At least 5 of 7 days/Wk (IRF) Estimated Hrs Per Day: 1.5 hours per day Patient and/or Family Agrees t: Yes Safety Risks/Education Patient Education: Gait Training, Transfer Techniques, Correct Positioning, Disease Process, Safety Issues Teaching Recipient: Patient Teaching Methods: Demonstration, Discussion Response to Teaching: Verbalize Understanding, Return Demonstration, Reinforcement Needed Time/GCodes Time In: 1330 Time Out: 1400 Total Billed Treatment Time: 30 Total Billed Treatment 1,EX15m,GT15m ELO MAIER SUPERVISOR CD AREA Aug 24, 2021 15:05
[2021-08-24 19:32] VITALS: BP 117/78
[2021-08-25] MEDS: LEVOTHYROXINE 75 MCG (LEVOTHROID) TABLET PO SCH (05:19)
--- NOTE | 2021-08-25 06:19 | PM&R Progress Note ---
Subjective HPI/CC On Admission Date Seen by Provider: Aug 25, 2021 Time Seen by Provider: 12:00 Subjective/Events-last exam 08/25/2021: Patient is doing well except nausea today No pain reported other than her usual chronic Garcia out Monitoring closely 08/24/21: Pt is doing really well Discontinue the Unasyn due to blood culture repeat, no growth today Loose bowel movement, sent down the stool studies Discontinue the garcia and hep lock IV fluid today 08/23/21: Pt is doing a little better Keep garcia in for accurate I's and O's Balance is very poor Normal saline at 100 ccs an hour Unison initiated Blood cultures no growth today that I redrew yesterday Review of Systems General: Fatigue, Malaise Gastrointestinal: Nausea Musculoskeletal: back pain Objective Exam Vital Signs Vital Signs Date Time Temp Pulse Resp B/P (MAP) Pulse Ox O2 Delivery O2 Flow Rate FiO2 08/25/21 19:34 36.2 87 18 130/86 (101) 100 Nasal Cannula 2.00 Capillary Refill : General Appearance: No Apparent Distress, WD/WN, Anxious, Chronically ill HEENT: PERRL/EOMI, Normal ENT Inspection, Pharynx Normal Neck: Full Range of Motion, Normal Inspection, Non Tender, Supple, Carotid Bruit Respiratory: Chest Non Tender, Lungs Clear, Normal Breath Sounds, No Accessory Muscle Use, No Respiratory Distress, Decreased Breath Sounds Cardiovascular: Regular Rate, Rhythm, No Edema, No Gallop, No JVD, No Murmur, Normal Peripheral Pulses Gastrointestinal: Normal Bowel Sounds, No Organomegaly, No Pulsatile Mass, Non Tender, Soft Back: Normal Inspection, No CVA Tenderness, No Vertebral Tenderness Extremity: Normal Capillary Refill, Normal Inspection, Normal Range of Motion, Non Tender, No Calf Tenderness, No Pedal Edema Neurologic/Psychiatric: Alert, Oriented x3, brush clearing laborer II-XII Norm as Tested, Abnormal Gait, Depressed Affect, Motor Weakness (generalized 3/5) Skin: Normal Color, Warm/Dry, Other (pressure ulcer left heel) Lymphatic: No Adenopathy Results/Procedures Lab Patient resulted labs reviewed. FIM Transfers Therapy Code Descriptions/Definitions Functional [place] Measure: 0=Not Assessed/NA 4=Minimal Assistance 1=Total Assistance 5=Supervision or Setup 2=Maximal Assistance 6=Modified [place] 3=Moderate Assistance 7=Complete IndependenceSCALE: Activities may be completed with or without assistive devices. 9-Dizvagkgre-hvqimbm completes the activity by him/herself with no assistance from a helper. 5-Set-up or Clean-up Assistance-helper sets up or cleans up; patient completes activity. [place] assists only prior to or following the activity. 4-Supervision or Touching Assistance-helper provides verbal cues and/or touching/steadying and/or contact guard assistance as patient completes activity. Assistance may be provided throughout the activity or intermittently. 3-Partial/Moderate Assistance-helper does LESS THAN HALF the effort. [place] lifts, holds or supports trunk or limbs, but provides less than half the effort. 2-Substantial/Maximal Assistance-helper does MORE THAN HALF the effort. [place] lifts or holds trunk or limbs and provides more than half the effort. 9-Gucpveccm-mxigla does ALL the effort. Patient does none of the effort to complete the activity. Or, the assistance of 2 or more helpers is required for the patient to complete the activity. If activity was not attempted, code reason: 7-Patient Refused. 9-Not Applicable-not attempted and the patient did not perform the activity before the current illness, exacerbation or injury. 10-Not Attempted due to Environmental Limitations-(lack of equipment, weather restraints, etc.). 88-Not Attempted due to Medical Conditions or Safety Concerns. Roll Left to Right (QC): 6 Sit to Lying (QC): 3 Sit to Stand (QC): 4 Chair/Ekw-ln-Fkbvy Xfer(QC): 4 Car Transfer (QC): 3 Gait Training Does the Patient Walk?: Yes Walk 10 feet (QC): 4 Walk 50 ft with 2 Turns(QC): 4 Walk 150 ft (QC): 88 Walking 10ft/uneven surface-QC: 88 Gait Persons Needed: 1 Gait Assistive Device: FWW Wheelchair Training Does the Pt Use a Wheelchair?: Yes Wheel 50 ft with 2 turns (QC): 3 Wheel 150 ft (QC): 88 Type of Wheelchair: Manual Stair Training 1 Step (curb) (QC): 88 4 Steps (QC): 88 12 Steps (QC): 88 Balance Picking up an Object (QC): 88 ADL-Treatment Eating (QC): 5 Oral Hygiene (QC): 6 Shower/Bathe Self (QC): 3 (Min A with standing balance, pt able to wash/dry all parts except buttocks.) Upper Body Dressing (QC): 3 (Cue for orientation of shirt, then min A pulling shirt down back. ) Lower Body Dressing (QC): 3 (Min A standing balance, pt able to manage pant hike and thread BLEs.) On/Off Footwear (QC): 3 (Pt able to doff, min A with donning gripper socks.) Toileting Hygiene (QC): 3 (Min A for balance, pt able to perform pericare and clothing management.) Assessment/Plan Assessment and Plan Assess & Plan/Chief Complaint Assessment: Debility Dehydration Diarrhea Bacteremia placed on Unasyn now disproved so DC abx Chronic pain on Fentanyl patch and Hydrocodone Multiple falls Left heel ulcer pressure type present prior to admit Bedridden h/o Left lacunar cerebellar infarct with gait imbalance and dyscoordination on the left 2016 HTN controlled Hypothyroidosm on replacement Post thoracotomy pain syndrome on pain meds Mild anemia O2 dependence s/p thoracotomy Chronic nausea Plan: Home meds IVF Unasyn Repeat BCx PT OT O2 08/23: Stool studies IVF Unasyn Monitor closely 08/24/21: Monitor closely DC IVF Garcia DC 08/25: Monitor nausea Supportive care (1) Dehydration Status: Acute (2) Diarrhea Status: Acute (3) Hypotension Status: Acute (4) Cerebellar stroke MECHELLE FOY DO Aug 25, 2021 06:19
[2021-08-25] MEDS: ASPIRIN E.C. 81 MG (ECOTRIN) TAB PO SCH (07:08)
[2021-08-25] MEDS: PARoxetine 10 MG (PAXIL) TAB PO SCH (07:08)
[2021-08-25] MEDS: PARoxetine 20 MG (PAXIL) TAB PO SCH (07:08)
[2021-08-25] MEDS: HYDROcodone/APAP 5 MG/325 MG (LORTAB) TAB PO PRN ×2 (07:09→15:12)
[2021-08-25] MEDS: PANTOPRAZOLE 40 MG (PROTONIX) TAB PO SCH ×2 (07:09→20:23)
[2021-08-25] MEDS: KCL 20 MEQ TAB (K-DUR) PO SCH ×2 (07:09→17:31)
[2021-08-25] MEDS: HYPOCHLOROUS ACID/NaCl (VASHE) 250 ML IR SCH ×2 (07:11→20:23)
[2021-08-25] MEDS: COLLAGENASE 30 GM (SANTYL) TUBE TP SCH ×2 (07:11→20:22)
[2021-08-25] MEDS: SILVER SULFADIAZINE 400 GM CREAM TOP SCH (07:12)
[2021-08-25] MEDS: SENNA W/DOCUSATE (SENOKOT S) TABLET PO SCH ×2 (07:46→19:46)
[2021-08-25] MEDS: polyethylene glycoL POWDER 17 GM (MIRALAX) PACK PO SCH ×2 (07:46→19:45)
[2021-08-25 07:51] VITALS: BP 127/86
[2021-08-25 08:00] VITALS: BP 132/88
[2021-08-25] MEDS: meTOprolol SUCCINATE 100 MG (TOPROL XL) TAB PO SCH (08:00)
--- NOTE | 2021-08-25 09:00 | Physical Therapy Daily Note ---
PT Daily Note-Current Subjective Pt. in bed. Agrees to Rx. Wants to meet the goals to qualify for asst living Pain Location: No Pain Reported Mental Status Patient Orientation: Normal For Age Attachments: Oxygen (2L) Transfers SCALE: Activities may be completed with or without assistive devices. 5-Chbqqyfynf-dnwjurj completes the activity by him/herself with no assistance from a helper. 5-Set-up or Clean-up Assistance-helper sets up or cleans up; patient completes activity. [place] assists only prior to or following the activity. 4-Supervision or Touching Assistance-helper provides verbal cues and/or touching/steadying and/or contact guard assistance as patient completes activity. Assistance may be provided throughout the activity or intermittently. 3-Partial/Moderate Assistance-helper does LESS THAN HALF the effort. [place] lifts, holds or supports trunk or limbs, but provides less than half the effort. 2-Substantial/Maximal Assistance-helper does MORE THAN HALF the effort. [place] lifts or holds trunk or limbs and provides more than half the effort. 5-Ptqmwldfn-scxgae does ALL the effort. Patient does none of the effort to complete the activity. Or, the assistance of 2 or more helpers is required for the patient to complete the activity. If activity was not attempted, code reason: 7-Patient Refused. 9-Not Applicable-not attempted and the patient did not perform the activity before the current illness, exacerbation or injury. 10-Not Attempted due to Environmental Limitations-(lack of equipment, weather restraints, etc.). 88-Not Attempted due to Medical Conditions or Safety Concerns. Roll Left & Right (QC): 6 Lying to Sitting/Side of Bed(Q: 6 Sit to Stand (QC): 6 Chair/Pir-st-Axdsb Xfer(QC): 6 instruction in safe backing and approach to chair with FWW as pt tends to abandon FWW and back up 3-4 steps Weight Bearing Full Weight Bearing Full Weight Bearing Gait Training Does the Patient Walk?: Yes Walk 10 feet (QC): 4 Walk 50 ft with 2 Turns(QC): 4 Gait Persons Needed: 1 Gait Assistive Device: FWW 35ftx2 FWW asst for O2, 55ftx2 asst for O2, good use of FWW, slow, even step length Exercises Seated Therapy Exercises: Ankle pumps, Sit to stand, Long arc quads, Hip flexion, Hip abd/add Seated Reps: 20 Treatments dressed self upper and lower clothing, in sitting with instruction for safety and sequence Assessment Current Status: Good Progress good progress today, O2 sats 95% ,HR 66 BPM during Rx PT Short Term Goals Short Term Goals Time Frame: Aug 29, 2021 Roll Left & Right: 6 Sit to lyin Lying to sitting on side of be: 4 Sit to stand: 4 Walk 10 feet: 4 PT Fpc Goals Boxing Promoter Goals PT Boxing Promoter Goals Time Frame: Sep 12, 2021 Roll Left & Right (QC): 6 Sit to Lying (QC): 6 Lying-Sitting on Side/Bed(QC): 6 Sit to Stand (QC): 4 (SBA) Chair/Svq-mg-Hhmzt Xfer(QC): 4 (SBA) Toilet Transfer (QC): 4 (SBA) Car Transfer (QC): 4 (SBA) Does the Patient Walk: Yes Walk 10 feet (QC): 4 (SBA) Walk 50ft with 2 Turns (QC): 4 (SBA) Walk 150 ft (QC): 88 Walking 10ft on Uneven Surface: 4 (SBA) 1 Step (curb) (QC): 4 (SBA) 4 Steps (QC): 88 12 Steps (QC): 88 Picking up an Object (QC): 4 (SBA using pediatric clinical nurse specialist) Wheel 50 feet with 2 turns (QC: 9 Wheel 150 feet: 9 PT Plan Treatment/Plan Treatment Plan: Continue Plan of Care Treatment Plan: Bed Mobility, Education, Functional Activity Bright, Functional Strength, Group Therapy, Gait, Safety, Therapeutic Exercise, Transfers Treatment Duration: Sep 12, 2021 Frequency: At least 5 of 7 days/Wk (IRF) Estimated Hrs Per Day: 1.5 hours per day Patient and/or Family Agrees t: Yes Safety Risks/Education Patient Education: Gait Training, Transfer Techniques, Correct Positioning, Disease Process, Safety Issues Teaching Recipient: Patient Teaching Methods: Demonstration, Discussion Response to Teaching: Verbalize Understanding, Return Demonstration, Reinforcement Needed Time/GCodes Time In: 800 Time Out: 900 Total Billed Treatment Time: 60 Total Billed Treatment 1,FA15m,EX15m,GT30m ELO MAIER UPHOLSTERY INSTRUCTOR Aug 25, 2021 09:00
[2021-08-25] MEDS: DOCUSATE SODIUM 100 MG (COLACE) CAP PO SCH ×2 (09:55→19:45)
--- NOTE | 2021-08-25 11:05 | Occupational Ther Daily Note ---
OT Current Status-Daily Note Subjective Pt seated in recliner prior to tx. Pt agreeable to tx. Mental Status/Objective Patient Orientation: Person, Place, Situation Attachments: IV, Oxygen ADL-Treatment Therapy Code Descriptions/Definitions Functional [place] Measure: 0=Not Assessed/NA 4=Minimal Assistance 1=Total Assistance 5=Supervision or Setup 2=Maximal Assistance 6=Modified [place] 3=Moderate Assistance 7=Complete IndependenceSCALE: Activities may be completed with or without assistive devices. 9-Pcutnjsvoc-wdzqqro completes the activity by him/herself with no assistance from a helper. 5-Set-up or Clean-up Assistance-helper sets up or cleans up; patient completes activity. [place] assists only prior to or following the activity. 4-Supervision or Touching Assistance-helper provides verbal cues and/or touching/steadying and/or contact guard assistance as patient completes activity. Assistance may be provided throughout the activity or intermittently. 3-Partial/Moderate Assistance-helper does LESS THAN HALF the effort. [place] lifts, holds or supports trunk or limbs, but provides less than half the effort. 2-Substantial/Maximal Assistance-helper does MORE THAN HALF the effort. [place] lifts or holds trunk or limbs and provides more than half the effort. 2-Xkrfyssju-rqjzkd does ALL the effort. Patient does none of the effort to complete the activity. Or, the assistance of 2 or more helpers is required for the patient to complete the activity. If activity was not attempted, code reason: 7-Patient Refused. 9-Not Applicable-not attempted and the patient did not perform the activity before the current illness, exacerbation or injury. 10-Not Attempted due to Environmental Limitations-(lack of equipment, weather restraints, etc.). 88-Not Attempted due to Medical Conditions or Safety Concerns. Bathing Location: L Arm, R Arm, L Upper Leg, R Upper Leg, L Lower Leg (including foot), R Lower Leg (including foot), Chest, Abdomen Shower/Bathe Self (QC): 3 (Min A. Pt unable to wash buttocks and periarea because she was too fatigued to stand. Pt required min v/c's for safety.) Upper Body Dressing (QC): 5 Lower Body Dressing (QC): 3 (Min A. Pt required v/c's for sequencing and min A to thread legs for brief and pants.) On/Off Footwear: 4 (V/c's required for safety and sequencing) Other Treatment Pt in recliner prior to OT tx. Pt used FWW to transfer to the shower, CGA. Pt completed shower with increased time d/t RBs needed to catch breath. Pt transferred from shower to chair to complete dressing, CGA. Pt required frequent RBs throughout dressing d/t SOB and nausea. Pt educated on ways to conserve energy during showering and dressing, pt agreeable. Nurse came to treat and dress wounds. Pt used FWW to return to bed, CGA. Pt left in bed with call light in reach and all needs met. Education OT Patient Education: Correct positioning, Energy conservation, Exercise program, Modified ADL techniques, Progress toward Goal/Update tx plan, Purpose of tx/functional activities, Rehab process, Safety issues Teaching Recipient: Patient Teaching Methods: Discussion Response to Teaching: Verbalize Understanding, Reinforcement Needed OT Short Term Goals Short Term Goals Time Frame: Sep 04, 2021 Toileting hygiene: 4 Shower/bathe self: 4 Lower body dressin Putting on/taking off footwear: 4 OT Application Infrastructure Engineer Goals Application Infrastructure Engineer Goals Time Frame: Sep 15, 2021 Eating (QC): 6 Oral Hygiene (QC): 6 Toileting Hygiene (QC): 6 Shower/Bathe Self (QC): 6 Upper Body Dressing (QC): 6 Lower Body Dressing (QC): 6 On/Off Footwear (QC): 6 Additional Goals: 1-Demonstrate ADL Tasks, 2-Verbalize Understanding, 3- ImproveStrength/Bright 1=Demonstrate adherence to instructed precautions during ADL tasks. 2=Patient will verbalize/demonstrate understanding of assistive devices/modifications for ADL. 3=Patient will improve strength/tolerance for activity to enable patient to perform ADL's. OT Education/Plan Problem List/Assessment Assessment: Decreased Activ Tolerance, Decreased Safety Aware, Decreased UE Strength, Impaired Funct Balance, Impaired I ADL's, Impaired Self-Care Skills Discharge Recommendations Plan/Recommendations: Continue POC Equpiment Recommendations-D/C: Extended Bath Bench Treatment Plan/Plan of Care Patient would benefit from OT for education, treatment and training to promote independence in ADL's, mobility, safety and/or upper extremity function for ADL's. Plan of Care: ADL Retraining, Functional Mobility, Group Exercise/Act as Ind, UE Funct Exercise/Act Treatment Duration: Sep 15, 2021 Frequency: At least 5 of 7 days/Wk (IRF) Estimated Hrs Per Day: 1.5 hours per day Rehab Potential: Fair Time/GCodes Start Time: 09:30 Stop Time: 11:00 Total Time Billed (hr/min): 90 Billed Treatment Time 1, ADL 6 (90') MOODY BHATT OT Aug 25, 2021 11:05
[2021-08-25] MEDS: ONDANSETRON 4 MG (ZOFRAN) ORAL DISSOLVE TAB PO PRN (11:39)
--- NOTE | 2021-08-25 11:59 | Physical Therapy Daily Note ---
PT Daily Note-Current Subjective Pt. in bed, c/o continued nausea. Nurse advised and pt. recieves sub lingual zofran. Pt. with some relief agrees to bed Ex Pain Numeric Pain Scale: 5-Moderate Pain Location: Right Location Body Site: Thigh Pain Description: Squeezing (spasm) Appearance appears with symptoms of nausea, given cooled damp cloth, emesis basin , Transfers SCALE: Activities may be completed with or without assistive devices. 0-Mqjfjxsjbv-gwvmxfm completes the activity by him/herself with no assistance from a helper. 5-Set-up or Clean-up Assistance-helper sets up or cleans up; patient completes activity. [place] assists only prior to or following the activity. 4-Supervision or Touching Assistance-helper provides verbal cues and/or touching/steadying and/or contact guard assistance as patient completes activity. Assistance may be provided throughout the activity or intermittently. 3-Partial/Moderate Assistance-helper does LESS THAN HALF the effort. [place] lifts, holds or supports trunk or limbs, but provides less than half the effort. 2-Substantial/Maximal Assistance-helper does MORE THAN HALF the effort. [place] lifts or holds trunk or limbs and provides more than half the effort. 0-Pshvwgstw-asgido does ALL the effort. Patient does none of the effort to complete the activity. Or, the assistance of 2 or more helpers is required for the patient to complete the activity. If activity was not attempted, code reason: 7-Patient Refused. 9-Not Applicable-not attempted and the patient did not perform the activity before the current illness, exacerbation or injury. 10-Not Attempted due to Environmental Limitations-(lack of equipment, weather restraints, etc.). 88-Not Attempted due to Medical Conditions or Safety Concerns. Weight Bearing Full Weight Bearing Full Weight Bearing Exercises Supine Ex: Ankle pumps, Quad Set, Rolling, Glut sets Supine Reps: 10 (x3) Treatments education review through exercises reminding pt. that she can exercise mostly isometrically even when she is in bed to increase circulation and help alleviate skin break down Assessment Current Status: Fair Progress limited participation secondary to c/o nausea PT Short Term Goals Short Term Goals Time Frame: Aug 29, 2021 Roll Left & Right: 6 Sit to lyin Lying to sitting on side of be: 4 Sit to stand: 4 Walk 10 feet: 4 PT Detention Goals Paperhanger Supervisor Goals PT Detention Goals Time Frame: Sep 12, 2021 Roll Left & Right (QC): 6 Sit to Lying (QC): 6 Lying-Sitting on Side/Bed(QC): 6 Sit to Stand (QC): 4 (SBA) Chair/Svp-on-Udvbu Xfer(QC): 4 (SBA) Toilet Transfer (QC): 4 (SBA) Car Transfer (QC): 4 (SBA) Does the Patient Walk: Yes Walk 10 feet (QC): 4 (SBA) Walk 50ft with 2 Turns (QC): 4 (SBA) Walk 150 ft (QC): 88 Walking 10ft on Uneven Surface: 4 (SBA) 1 Step (curb) (QC): 4 (SBA) 4 Steps (QC): 88 12 Steps (QC): 88 Picking up an Object (QC): 4 (SBA using machining engineer) Wheel 50 feet with 2 turns (QC: 9 Wheel 150 feet: 9 PT Plan Treatment/Plan Treatment Plan: Continue Plan of Care Treatment Plan: Bed Mobility, Education, Functional Activity Bright, Functional Strength, Group Therapy, Gait, Safety, Therapeutic Exercise, Transfers Treatment Duration: Sep 12, 2021 Frequency: At least 5 of 7 days/Wk (IRF) Estimated Hrs Per Day: 1.5 hours per day Patient and/or Family Agrees t: Yes Safety Risks/Education Patient Education: Correct Positioning, Disease Process, Safety Issues Time/GCodes Time In: 1130 Time Out: 1200 Total Billed Treatment Time: 30 Total Billed Treatment 1,FA15m,EX15m ELO MAIER ED TRANSPORTER Aug 25, 2021 11:59
[2021-08-25 19:34] VITALS: BP 130/86
[2021-08-26] MEDS: LEVOTHYROXINE 75 MCG (LEVOTHROID) TABLET PO SCH (05:06)
--- NOTE | 2021-08-26 06:09 | PM&R Progress Note ---
Subjective HPI/CC On Admission Date Seen by Provider: Aug 26, 2021 Time Seen by Provider: 11:00 Subjective/Events-last exam 08/26/2021: Patient doing really well No pain is reported other than her chronic pain Nausea is improved No falls Moving around pretty well 08/25/2021: Patient is doing well except nausea today No pain reported other than her usual chronic Garcia out Monitoring closely 08/24/21: Pt is doing really well Discontinue the Unasyn due to blood culture repeat, no growth today Loose bowel movement, sent down the stool studies Discontinue the garcia and hep lock IV fluid today 08/23/21: Pt is doing a little better Keep garcia in for accurate I's and O's Balance is very poor Normal saline at 100 ccs an hour Unison initiated Blood cultures no growth today that I redrew yesterday Review of Systems General: Fatigue, Malaise Objective Exam Vital Signs Vital Signs Date Time Temp Pulse Resp B/P (MAP) Pulse Ox O2 Delivery O2 Flow Rate FiO2 08/26/21 09:00 Nasal Cannula 2.00 08/26/21 07:25 36.2 90 22 117/79 (92) 100 Capillary Refill : General Appearance: No Apparent Distress, WD/WN, Anxious, Chronically ill HEENT: PERRL/EOMI, Normal ENT Inspection, Pharynx Normal Neck: Full Range of Motion, Normal Inspection, Non Tender, Supple, Carotid Bruit Respiratory: Chest Non Tender, Lungs Clear, Normal Breath Sounds, No Accessory Muscle Use, No Respiratory Distress, Decreased Breath Sounds Cardiovascular: Regular Rate, Rhythm, No Edema, No Gallop, No JVD, No Murmur, Normal Peripheral Pulses Gastrointestinal: Normal Bowel Sounds, No Organomegaly, No Pulsatile Mass, Non Tender, Soft Back: Normal Inspection, No CVA Tenderness, No Vertebral Tenderness Extremity: Normal Capillary Refill, Normal Inspection, Normal Range of Motion, Non Tender, No Calf Tenderness, No Pedal Edema Neurologic/Psychiatric: Alert, Oriented x3, alarm installer II-XII Norm as Tested, Abnormal Gait, Depressed Affect, Motor Weakness (generalized 3/5) Skin: Normal Color, Warm/Dry, Other (pressure ulcer left heel) Lymphatic: No Adenopathy Results/Procedures Lab Patient resulted labs reviewed. FIM Transfers Therapy Code Descriptions/Definitions Functional [place] Measure: 0=Not Assessed/NA 4=Minimal Assistance 1=Total Assistance 5=Supervision or Setup 2=Maximal Assistance 6=Modified [place] 3=Moderate Assistance 7=Complete IndependenceSCALE: Activities may be completed with or without assistive devices. 2-Wcyzdualvf-owheeym completes the activity by him/herself with no assistance from a helper. 5-Set-up or Clean-up Assistance-helper sets up or cleans up; patient completes activity. [place] assists only prior to or following the activity. 4-Supervision or Touching Assistance-helper provides verbal cues and/or touching/steadying and/or contact guard assistance as patient completes activity. Assistance may be provided throughout the activity or intermittently. 3-Partial/Moderate Assistance-helper does LESS THAN HALF the effort. [place] lifts, holds or supports trunk or limbs, but provides less than half the effort. 2-Substantial/Maximal Assistance-helper does MORE THAN HALF the effort. [place] lifts or holds trunk or limbs and provides more than half the effort. 6-Hpneecfvw-lrbxbj does ALL the effort. Patient does none of the effort to complete the activity. Or, the assistance of 2 or more helpers is required for the patient to complete the activity. If activity was not attempted, code reason: 7-Patient Refused. 9-Not Applicable-not attempted and the patient did not perform the activity before the current illness, exacerbation or injury. 10-Not Attempted due to Environmental Limitations-(lack of equipment, weather restraints, etc.). 88-Not Attempted due to Medical Conditions or Safety Concerns. Roll Left to Right (QC): 6 Sit to Lying (QC): 3 Sit to Stand (QC): 6 Chair/Puy-te-Pgsnh Xfer(QC): 6 Car Transfer (QC): 3 Gait Training Does the Patient Walk?: Yes Walk 10 feet (QC): 4 Walk 50 ft with 2 Turns(QC): 4 Walk 150 ft (QC): 88 Walking 10ft/uneven surface-QC: 88 Gait Persons Needed: 1 Gait Assistive Device: FWW Wheelchair Training Does the Pt Use a Wheelchair?: Yes Wheel 50 ft with 2 turns (QC): 3 Wheel 150 ft (QC): 88 Type of Wheelchair: Manual Stair Training 1 Step (curb) (QC): 88 4 Steps (QC): 88 12 Steps (QC): 88 Balance Picking up an Object (QC): 88 ADL-Treatment Eating (QC): 5 Oral Hygiene (QC): 6 Bathing Location: L Arm, R Arm, L Upper Leg, R Upper Leg, L Lower Leg (including foot), R Lower Leg (including foot), Chest, Abdomen Shower/Bathe Self (QC): 3 (Min A. Pt unable to wash buttocks and periarea because she was too fatigued to stand. Pt required min v/c's for safety.) Upper Body Dressing (QC): 5 Lower Body Dressing (QC): 3 (Min A. Pt required v/c's for sequencing and min A to thread legs for brief and pants.) On/Off Footwear (QC): 4 (V/c's required for safety and sequencing) Toileting Hygiene (QC): 3 (Min A for balance, pt able to perform pericare and clothing management.) Assessment/Plan Assessment and Plan Assess & Plan/Chief Complaint Assessment: Debility Dehydration Diarrhea Bacteremia placed on Unasyn now disproved so DC abx Chronic pain on Fentanyl patch and Hydrocodone Multiple falls Left heel ulcer pressure type present prior to admit Bedridden h/o Left lacunar cerebellar infarct with gait imbalance and dyscoordination on the left 2016 HTN controlled Hypothyroidosm on replacement Post thoracotomy pain syndrome on pain meds Mild anemia O2 dependence s/p thoracotomy Chronic nausea Plan: Home meds IVF Unasyn Repeat BCx PT OT O2 08/23: Stool studies IVF Unasyn Monitor closely 08/24/21: Monitor closely DC IVF Garcia DC 08/25: Monitor nausea Supportive care 08/26/2021: Supportive care Increase oral fluids Chronic pain management (1) Dehydration Status: Acute (2) Diarrhea Status: Acute (3) Hypotension Status: Acute (4) Cerebellar stroke MECHELLE FOY DO Aug 26, 2021 06:09
[2021-08-26 07:25] VITALS: BP 117/79
[2021-08-26] MEDS: PARoxetine 20 MG (PAXIL) TAB PO SCH (08:33)
[2021-08-26] MEDS: ASPIRIN E.C. 81 MG (ECOTRIN) TAB PO SCH (08:33)
[2021-08-26] MEDS: KCL 20 MEQ TAB (K-DUR) PO SCH ×2 (08:33→18:02)
[2021-08-26] MEDS: PARoxetine 10 MG (PAXIL) TAB PO SCH (08:33)
[2021-08-26] MEDS: polyethylene glycoL POWDER 17 GM (MIRALAX) PACK PO SCH ×2 (08:33→20:12)
[2021-08-26] MEDS: meTOprolol SUCCINATE 100 MG (TOPROL XL) TAB PO SCH (08:34)
[2021-08-26] MEDS: SENNA W/DOCUSATE (SENOKOT S) TABLET PO SCH ×2 (08:34→20:12)
[2021-08-26] MEDS: DOCUSATE SODIUM 100 MG (COLACE) CAP PO SCH ×2 (08:34→20:12)
[2021-08-26] MEDS: PANTOPRAZOLE 40 MG (PROTONIX) TAB PO SCH ×2 (08:39→19:23)
--- NOTE | 2021-08-26 08:46 | Physical Therapy Daily Note ---
PT Daily Note-Current Subjective Pt. agrees to Rx, in bed, agrees to sit up for breakfast Pain Location: No Pain Reported Mental Status Patient Orientation: Normal For Age Attachments: Oxygen Transfers SCALE: Activities may be completed with or without assistive devices. 8-Qcxszxzhik-kqhlfrk completes the activity by him/herself with no assistance from a helper. 5-Set-up or Clean-up Assistance-helper sets up or cleans up; patient completes activity. [place] assists only prior to or following the activity. 4-Supervision or Touching Assistance-helper provides verbal cues and/or touching/steadying and/or contact guard assistance as patient completes activity. Assistance may be provided throughout the activity or intermittently. 3-Partial/Moderate Assistance-helper does LESS THAN HALF the effort. [place] lifts, holds or supports trunk or limbs, but provides less than half the effort. 2-Substantial/Maximal Assistance-helper does MORE THAN HALF the effort. [place] lifts or holds trunk or limbs and provides more than half the effort. 2-Yaniodjib-squcmb does ALL the effort. Patient does none of the effort to complete the activity. Or, the assistance of 2 or more helpers is required for the patient to complete the activity. If activity was not attempted, code reason: 7-Patient Refused. 9-Not Applicable-not attempted and the patient did not perform the activity before the current illness, exacerbation or injury. 10-Not Attempted due to Environmental Limitations-(lack of equipment, weather restraints, etc.). 88-Not Attempted due to Medical Conditions or Safety Concerns. sup to sit with assist only to doff heel protectors. sit to stand CGA, gait 8 ft in room x2, FWW CGA and education regarding safe use of extended O2 tubing while walking with FWW. Seated LE Weight Bearing Full Weight Bearing Full Weight Bearing Gait Training Does the Patient Walk?: Yes Gait Assistive Device: FWW ambulated 8 ft x 2 in room for education regarding use of O2 tubing safety during gait. Exercises Seated Therapy Exercises: Ankle pumps, Sit to stand, Long arc quads, Hip flexion, Hip abd/add Seated Reps: 12 Treatments up in recliner after Rx with espinoza and phone, LEs elevated, O2 insitu Assessment Current Status: Good Progress PT Short Term Goals Short Term Goals Time Frame: Aug 29, 2021 Roll Left & Right: 6 Sit to lyin Lying to sitting on side of be: 4 Sit to stand: 4 Walk 10 feet: 4 PT Prison Goals Prison Goals PT Skate Maker Goals Time Frame: Sep 12, 2021 Roll Left & Right (QC): 6 Sit to Lying (QC): 6 Lying-Sitting on Side/Bed(QC): 6 Sit to Stand (QC): 4 (SBA) Chair/Zyn-ur-Yytts Xfer(QC): 4 (SBA) Toilet Transfer (QC): 4 (SBA) Car Transfer (QC): 4 (SBA) Does the Patient Walk: Yes Walk 10 feet (QC): 4 (SBA) Walk 50ft with 2 Turns (QC): 4 (SBA) Walk 150 ft (QC): 88 Walking 10ft on Uneven Surface: 4 (SBA) 1 Step (curb) (QC): 4 (SBA) 4 Steps (QC): 88 12 Steps (QC): 88 Picking up an Object (QC): 4 (SBA using uniform attendant) Wheel 50 feet with 2 turns (QC: 9 Wheel 150 feet: 9 PT Plan Treatment/Plan Treatment Plan: Continue Plan of Care Treatment Plan: Bed Mobility, Education, Functional Activity Bright, Functional Strength, Group Therapy, Gait, Safety, Therapeutic Exercise, Transfers Treatment Duration: Sep 12, 2021 Frequency: At least 5 of 7 days/Wk (IRF) Estimated Hrs Per Day: 1.5 hours per day Patient and/or Family Agrees t: Yes Safety Risks/Education Patient Education: Gait Training, Transfer Techniques, Correct Positioning, Safety Issues Teaching Recipient: Patient Teaching Methods: Demonstration, Discussion Response to Teaching: Return Demonstration, Reinforcement Needed Time/GCodes Time In: 800 Time Out: 820 Total Billed Treatment Time: 20 Total Billed Treatment 1,FA20m ELO MAIER BULK PLANT OPERATOR Aug 26, 2021 08:46
[2021-08-26] MEDS: ONDANSETRON 4 MG (ZOFRAN) ORAL DISSOLVE TAB PO PRN (10:01)
[2021-08-26] MEDS: HYPOCHLOROUS ACID/NaCl (VASHE) 250 ML IR SCH ×2 (10:02→20:12)
[2021-08-26] MEDS: COLLAGENASE 30 GM (SANTYL) TUBE TP SCH ×2 (10:03→20:12)
[2021-08-26] MEDS: SILVER SULFADIAZINE 400 GM CREAM TOP SCH ×2 (10:03→20:12)
[2021-08-26] MEDS: ENOXAPARIN 40 MG/0.4 ML (LOVENOX) SYR SC SCH (12:29)
[2021-08-26] MEDS ORDERED: CATHETER FLUSH 10 ML SYR IVP PRN (16:15)
[2021-08-26 20:55] VITALS: BP 91/69
[2021-08-26] MEDS ORDERED: CATHETER FLUSH 10 ML SYR IVP SCH (22:00)
[2021-08-26 22:04] VITALS: BP 92/64
[2021-08-27] MEDS: LEVOTHYROXINE 75 MCG (LEVOTHROID) TABLET PO SCH (06:21)
--- NOTE | 2021-08-27 07:12 | PM&R Progress Note ---
Subjective HPI/CC On Admission Date Seen by Provider: Aug 27, 2021 Time Seen by Provider: 12:00 Subjective/Events-last exam 08/27/21: Patient doing well Continued weakness Diarrhea continues so will initiate Questran and check for stool leukocytes No pain is reported 08/26/2021: Patient doing really well No pain is reported other than her chronic pain Nausea is improved No falls Moving around pretty well 08/25/2021: Patient is doing well except nausea today No pain reported other than her usual chronic Garcia out Monitoring closely 08/24/21: Pt is doing really well Discontinue the Unasyn due to blood culture repeat, no growth today Loose bowel movement, sent down the stool studies Discontinue the garcia and hep lock IV fluid today 08/23/21: Pt is doing a little better Keep garcia in for accurate I's and O's Balance is very poor Normal saline at 100 ccs an hour Unison initiated Blood cultures no growth today that I redrew yesterday Review of Systems General: Fatigue, Malaise Gastrointestinal: Diarrhea Objective Exam Vital Signs Vital Signs Date Time Temp Pulse Resp B/P (MAP) Pulse Ox O2 Delivery O2 Flow Rate FiO2 08/27/21 09:36 Nasal Cannula 2.00 08/27/21 07:30 36.4 88 18 109/74 (86) 100 Capillary Refill : General Appearance: No Apparent Distress, WD/WN, Anxious, Chronically ill HEENT: PERRL/EOMI, Normal ENT Inspection, Pharynx Normal Neck: Full Range of Motion, Normal Inspection, Non Tender, Supple, Carotid Bruit Respiratory: Chest Non Tender, Lungs Clear, Normal Breath Sounds, No Accessory Muscle Use, No Respiratory Distress, Decreased Breath Sounds Cardiovascular: Regular Rate, Rhythm, No Edema, No Gallop, No JVD, No Murmur, Normal Peripheral Pulses Gastrointestinal: Normal Bowel Sounds, No Organomegaly, No Pulsatile Mass, Non Tender, Soft Back: Normal Inspection, No CVA Tenderness, No Vertebral Tenderness Extremity: Normal Capillary Refill, Normal Inspection, Normal Range of Motion, Non Tender, No Calf Tenderness, No Pedal Edema Neurologic/Psychiatric: Alert, Oriented x3, telecommunications analyst II-XII Norm as Tested, Abnormal Gait, Depressed Affect, Motor Weakness (generalized 3/5) Skin: Normal Color, Warm/Dry, Other (pressure ulcer left heel) Lymphatic: No Adenopathy Results/Procedures Lab Patient resulted labs reviewed. FIM Transfers Therapy Code Descriptions/Definitions Functional [place] Measure: 0=Not Assessed/NA 4=Minimal Assistance 1=Total Assistance 5=Supervision or Setup 2=Maximal Assistance 6=Modified [place] 3=Moderate Assistance 7=Complete IndependenceSCALE: Activities may be completed with or without assistive devices. 2-Eecfxaqqrq-nikuglv completes the activity by him/herself with no assistance from a helper. 5-Set-up or Clean-up Assistance-helper sets up or cleans up; patient completes activity. [place] assists only prior to or following the activity. 4-Supervision or Touching Assistance-helper provides verbal cues and/or touching/steadying and/or contact guard assistance as patient completes acti vity. Assistance may be provided throughout the activity or intermittently. 3-Partial/Moderate Assistance-helper does LESS THAN HALF the effort. [place] lifts, holds or supports trunk or limbs, but provides less than half the effort. 2-Substantial/Maximal Assistance-helper does MORE THAN HALF the effort. [place] lifts or holds trunk or limbs and provides more than half the effort. 1-Tqasukjff-ukutzi does ALL the effort. Patient does none of the effort to complete the activity. Or, the assistance of 2 or more helpers is required for the patient to complete the activity. If activity was not attempted, code reason: 7-Patient Refused. 9-Not Applicable-not attempted and the patient did not perform the activity before the current illness, exacerbation or injury. 10-Not Attempted due to Environmental Limitations-(lack of equipment, weather restraints, etc.). 88-Not Attempted due to Medical Conditions or Safety Concerns. Roll Left to Right (QC): 6 Sit to Lying (QC): 3 Sit to Stand (QC): 6 Chair/Bvx-wl-Qziau Xfer(QC): 6 Car Transfer (QC): 3 Gait Training Does the Patient Walk?: Yes Walk 10 feet (QC): 4 Walk 50 ft with 2 Turns(QC): 4 Walk 150 ft (QC): 88 Walking 10ft/uneven surface-QC: 88 Gait Persons Needed: 1 Gait Assistive Device: FWW Wheelchair Training Does the Pt Use a Wheelchair?: Yes Wheel 50 ft with 2 turns (QC): 3 Wheel 150 ft (QC): 88 Type of Wheelchair: Manual Stair Training 1 Step (curb) (QC): 88 4 Steps (QC): 88 12 Steps (QC): 88 Balance Picking up an Object (QC): 88 ADL-Treatment Eating (QC): 5 Oral Hygiene (QC): 6 Bathing Location: L Arm, R Arm, L Upper Leg, R Upper Leg, L Lower Leg (including foot), R Lower Leg (including foot), Chest, Abdomen Shower/Bathe Self (QC): 3 (Min A. Pt unable to wash buttocks and periarea because she was too fatigued to stand. Pt required min v/c's for safety.) Upper Body Dressing (QC): 5 Lower Body Dressing (QC): 3 (Min A. Pt required v/c's for sequencing and min A to thread legs for brief and pants.) On/Off Footwear (QC): 4 (V/c's required for safety and sequencing) Toileting Hygiene (QC): 3 (Min A for balance, pt able to perform pericare and clothing management.) Assessment/Plan Assessment and Plan Assess & Plan/Chief Complaint Assessment: Debility Dehydration Diarrhea Bacteremia placed on Unasyn now disproved so DC abx Chronic pain on Fentanyl patch and Hydrocodone Multiple falls Left heel ulcer pressure type present prior to admit Bedridden h/o Left lacunar cerebellar infarct with gait imbalance and dyscoordination on the left 2016 HTN controlled Hypothyroidosm on replacement Post thoracotomy pain syndrome on pain meds Mild anemia O2 dependence s/p thoracotomy Chronic nausea Plan: Home meds IVF Unasyn Repeat BCx PT OT O2 08/23: Stool studies IVF Unasyn Monitor closely 08/24/21: Monitor closely DC IVF Garcia DC 08/25: Monitor nausea Supportive care 08/26/2021: Supportive care Increase oral fluids Chronic pain management 08/27/21: Questran 3 times daily Supportive care (1) Dehydration Status: Acute (2) Diarrhea Status: Acute (3) Hypotension Status: Acute (4) Cerebellar stroke MECHELLE FOY DO Aug 27, 2021 07:11
[2021-08-27 07:30] VITALS: BP 109/74
[2021-08-27] MEDS: PARoxetine 10 MG (PAXIL) TAB PO SCH (08:17)
[2021-08-27] MEDS: PANTOPRAZOLE 40 MG (PROTONIX) TAB PO SCH ×2 (08:17→20:22)
[2021-08-27] MEDS: PARoxetine 20 MG (PAXIL) TAB PO SCH (08:17)
[2021-08-27] MEDS: ASPIRIN E.C. 81 MG (ECOTRIN) TAB PO SCH (08:17)
[2021-08-27] MEDS: meTOprolol SUCCINATE 100 MG (TOPROL XL) TAB PO SCH (08:18)
[2021-08-27] MEDS: SENNA W/DOCUSATE (SENOKOT S) TABLET PO SCH ×2 (08:18→19:12)
[2021-08-27] MEDS: polyethylene glycoL POWDER 17 GM (MIRALAX) PACK PO SCH ×2 (08:19→19:12)
[2021-08-27] MEDS: KCL 20 MEQ TAB (K-DUR) PO SCH ×2 (08:24→17:38)
[2021-08-27] MEDS: DOCUSATE SODIUM 100 MG (COLACE) CAP PO SCH ×2 (08:25→19:12)
[2021-08-27] MEDS: FENTANYL PATCH REMOVAL TP SCH (08:25)
[2021-08-27] MEDS: fentaNYL PATCH 50 MCG (DURAGESIC) TD SCH (08:25)
[2021-08-27] MEDS: COLLAGENASE 30 GM (SANTYL) TUBE TP SCH ×2 (09:27→20:23)
[2021-08-27] MEDS: HYPOCHLOROUS ACID/NaCl (VASHE) 250 ML IR SCH ×2 (09:27→20:23)
[2021-08-27] MEDS: SILVER SULFADIAZINE 400 GM CREAM TOP SCH ×2 (09:27→20:23)
[2021-08-27] MEDS: ENOXAPARIN 40 MG/0.4 ML (LOVENOX) SYR SC SCH (12:09)
[2021-08-27] MEDS: CHOLESTYRAMINE 4 GM (QUESTRAN LITE, PREVALITE) PKT PO SCH ×2 (13:12→19:46)
[2021-08-27] MEDS: ONDANSETRON 4 MG (ZOFRAN) ORAL DISSOLVE TAB PO PRN (17:38)
[2021-08-27 19:56] VITALS: BP 119/78
[2021-08-28] MEDS: LEVOTHYROXINE 75 MCG (LEVOTHROID) TABLET PO SCH (05:31)
--- NOTE | 2021-08-28 07:09 | PM&R Progress Note ---
Subjective HPI/CC On Admission Date Seen by Provider: Aug 28, 2021 Time Seen by Provider: 10:00 Subjective/Events-last exam 08/28/21: Patient doing better Less diarrhea Questran improving loose stools Getting stronger slowly 08/27/21: Patient doing well Continued weakness Diarrhea continues so will initiate Questran and check for stool leukocytes No pain is reported 08/26/2021: Patient doing really well No pain is reported other than her chronic pain Nausea is improved No falls Moving around pretty well 08/25/2021: Patient is doing well except nausea today No pain reported other than her usual chronic Garcia out Monitoring closely 08/24/21: Pt is doing really well Discontinue the Unasyn due to blood culture repeat, no growth today Loose bowel movement, sent down the stool studies Discontinue the garcia and hep lock IV fluid today 08/23/21: Pt is doing a little better Keep garcia in for accurate I's and O's Balance is very poor Normal saline at 100 ccs an hour Unison initiated Blood cultures no growth today that I redrew yesterday Review of Systems General: Fatigue, Malaise Objective Exam Vital Signs Vital Signs Date Time Temp Pulse Resp B/P (MAP) Pulse Ox O2 Delivery O2 Flow Rate FiO2 08/28/21 09:00 Nasal Cannula 2.00 08/28/21 07:45 36.4 104 20 120/84 (96) 100 Capillary Refill : General Appearance: No Apparent Distress, WD/WN, Anxious, Chronically ill HEENT: PERRL/EOMI, Normal ENT Inspection, Pharynx Normal Neck: Full Range of Motion, Normal Inspection, Non Tender, Supple, Carotid Bruit Respiratory: Chest Non Tender, Lungs Clear, Normal Breath Sounds, No Accessory Muscle Use, No Respiratory Distress, Decreased Breath Sounds Cardiovascular: Regular Rate, Rhythm, No Edema, No Gallop, No JVD, No Murmur, Normal Peripheral Pulses Gastrointestinal: Normal Bowel Sounds, No Organomegaly, No Pulsatile Mass, Non Tender, Soft Back: Normal Inspection, No CVA Tenderness, No Vertebral Tenderness Extremity: Normal Capillary Refill, Normal Inspection, Normal Range of Motion, Non Tender, No Calf Tenderness, No Pedal Edema Neurologic/Psychiatric: Alert, Oriented x3, organizational development specialist II-XII Norm as Tested, Abnormal Gait, Depressed Affect, Motor Weakness (generalized 3/5) Skin: Normal Color, Warm/Dry, Other (pressure ulcer left heel) Lymphatic: No Adenopathy Results/Procedures Lab Laboratory Tests 08/28/21 07:40 Patient resulted labs reviewed. FIM Transfers Therapy Code Descriptions/Definitions Functional [place] Measure: 0=Not Assessed/NA 4=Minimal Assistance 1=Total Assistance 5=Supervision or Setup 2=Maximal Assistance 6=Modified [place] 3=Moderate Assistance 7=Complete IndependenceSCALE: Activities may be completed with or without assistive devices. 0-Rruuvjzlyu-uplvhjt completes the activity by him/herself with no assistance from a helper. 5-Set-up or Clean-up Assistance-helper sets up or cleans up; patient completes activity. [place] assists only prior to or following the activity. 4-Supervision or Touching Assistance-helper provides verbal cues and/or touch ing/steadying and/or contact guard assistance as patient completes activity. Assistance may be provided throughout the activity or intermittently. 3-Partial/Moderate Assistance-helper does LESS THAN HALF the effort. [place] lifts, holds or supports trunk or limbs, but provides less than half the effort. 2-Substantial/Maximal Assistance-helper does MORE THAN HALF the effort. [place] lifts or holds trunk or limbs and provides more than half the effort. 2-Xbmzqjana-mbupet does ALL the effort. Patient does none of the effort to complete the activity. Or, the assistance of 2 or more helpers is required for the patient to complete the activity. If activity was not attempted, code reason: 7-Patient Refused. 9-Not Applicable-not attempted and the patient did not perform the activity bef ore the current illness, exacerbation or injury. 10-Not Attempted due to Environmental Limitations-(lack of equipment, weather restraints, etc.). 88-Not Attempted due to Medical Conditions or Safety Concerns. Roll Left to Right (QC): 6 Sit to Lying (QC): 3 Sit to Stand (QC): 6 Chair/Gds-uu-Hmkmh Xfer(QC): 6 Car Transfer (QC): 3 Gait Training Does the Patient Walk?: Yes Walk 10 feet (QC): 4 Walk 50 ft with 2 Turns(QC): 4 Walk 150 ft (QC): 88 Walking 10ft/uneven surface-QC: 88 Gait Persons Needed: 1 Gait Assistive Device: FWW Wheelchair Training Does the Pt Use a Wheelchair?: Yes Wheel 50 ft with 2 turns (QC): 3 Wheel 150 ft (QC): 88 Type of Wheelchair: Manual Stair Training 1 Step (curb) (QC): 88 4 Steps (QC): 88 12 Steps (QC): 88 Balance Picking up an Object (QC): 88 ADL-Treatment Eating (QC): 5 Oral Hygiene (QC): 6 Bathing Location: L Arm, R Arm, L Upper Leg, R Upper Leg, L Lower Leg (including foot), R Lower Leg (including foot), Chest, Abdomen Shower/Bathe Self (QC): 3 (Min A. Pt unable to wash buttocks and periarea because she was too fatigued to stand. Pt required min v/c's for safety.) Upper Body Dressing (QC): 5 Lower Body Dressing (QC): 3 (Min A. Pt required v/c's for sequencing and min A to thread legs for brief and pants.) On/Off Footwear (QC): 4 (V/c's required for safety and sequencing) Toileting Hygiene (QC): 3 (Min A for balance, pt able to perform pericare and clothing management.) Assessment/Plan Assessment and Plan Assess & Plan/Chief Complaint Assessment: Debility Dehydration Diarrhea Bacteremia placed on Unasyn now disproved so DC abx Chronic pain on Fentanyl patch and Hydrocodone Multiple falls Left heel ulcer pressure type present prior to admit Bedridden h/o Left lacunar cerebellar infarct with gait imbalance and dyscoordination on the left 2016 HTN controlled Hypothyroidosm on replacement Post thoracotomy pain syndrome on pain meds Mild anemia O2 dependence s/p thoracotomy Chronic nausea Plan: Home meds IVF Unasyn Repeat BCx PT OT O2 08/23: Stool studies IVF Unasyn Monitor closely 08/24/21: Monitor closely DC IVF Garcia DC 08/25: Monitor nausea Supportive care 08/26/2021: Supportive care Increase oral fluids Chronic pain management 08/27/21: Questran 3 times daily Supportive care 08/28/21: Questran PT OT (1) Dehydration Status: Acute (2) Diarrhea Status: Acute (3) Hypotension Status: Acute (4) Cerebellar stroke MECHELLE FOY DO Aug 28, 2021 07:09
[2021-08-28] MEDS: ASPIRIN E.C. 81 MG (ECOTRIN) TAB PO SCH (07:29)
[2021-08-28] MEDS: PARoxetine 20 MG (PAXIL) TAB PO SCH (07:29)
[2021-08-28] MEDS: PARoxetine 10 MG (PAXIL) TAB PO SCH (07:29)
[2021-08-28] MEDS: KCL 20 MEQ TAB (K-DUR) PO SCH ×2 (07:29→18:07)
[2021-08-28] MEDS: HYPOCHLOROUS ACID/NaCl (VASHE) 250 ML IR SCH ×2 (07:34→22:21)
[2021-08-28] MEDS: COLLAGENASE 30 GM (SANTYL) TUBE TP SCH ×2 (07:34→22:22)
[2021-08-28] MEDS: SILVER SULFADIAZINE 400 GM CREAM TOP SCH ×2 (07:34→22:22)
[2021-08-28] MEDS: HYDROcodone/APAP 5 MG/325 MG (LORTAB) TAB PO PRN ×2 (07:37→16:36)
[2021-08-28 07:45] VITALS: BP 120/84
[2021-08-28 07:51] LABS: BASOPHILS % (AUTO) 0 % (0-10); EOSINOPHILS # (AUTO) 0.1 10^3/uL (0.0-0.3); EOSINOPHILS % (AUTO) 1 % (0-10); HEMATOCRIT 28 % (35-52); HEMOGLOBIN 8.8 g/dL (11.5-16.0); LYMPHOCYTES # (AUTO) 1.9 10^3/uL (1.0-4.0); LYMPHOCYTES % (AUTO) 23 % (12-44); MEAN CORPUSCULAR HEMOGLOBIN 33 pg (25-34); MEAN CORPUSCULAR HGB CONC 32 g/dL (32-36); MEAN CORPUSCULAR VOLUME 102 fL (80-99); MEAN PLATELET VOLUME 11.2 fL (9.0-12.2); MONOCYTES # (AUTO) 0.6 10^3/uL (0.0-1.0); MONOCYTES % (AUTO) 8 % (0-12); NEUTROPHILS # (AUTO) 5.6 10^3/uL (1.8-7.8); NEUTROPHILS % (AUTO) 67 % (42-75); PLATELET COUNT 169 10^3/uL (130-400); WHITE BLOOD COUNT 8.4 10^3/uL (4.3-11.0)
[2021-08-28 08:16] LABS: BILIRUBIN,TOTAL 0.5 MG/DL (0.1-1.0); CREATININE SERUM 0.73 MG/DL (0.60-1.30); POTASSIUM 4.6 MMOL/L (3.6-5.0); TOTAL PROTEIN 4.8 GM/DL (6.4-8.2)
--- NOTE | 2021-08-28 08:56 | Physical Therapy Daily Note ---
PT Daily Note-Current Subjective Pt sitting up in bed w/Nurse present upon arrival. Pt agrees to PT. Pain Location: No Pain Reported Mental Status Patient Orientation: Person, Place, Time, Situation Attachments: Oxygen (2L) Transfers SCALE: Activities may be completed with or without assistive devices. 3-Slagsnujzf-rtcjpuh completes the activity by him/herself with no assistance from a helper. 5-Set-up or Clean-up Assistance-helper sets up or cleans up; patient completes activity. [place] assists only prior to or following the activity. 4-Supervision or Touching Assistance-helper provides verbal cues and/or touching/steadying and/or contact guard assistance as patient completes activity. Assistance may be provided throughout the activity or intermittently. 3-Partial/Moderate Assistance-helper does LESS THAN HALF the effort. [place] lifts, holds or supports trunk or limbs, but provides less than half the effort. 2-Substantial/Maximal Assistance-helper does MORE THAN HALF the effort. [place] lifts or holds trunk or limbs and provides more than half the effort. 3-Xnwjanxmm-gcehqw does ALL the effort. Patient does none of the effort to complete the activity. Or, the assistance of 2 or more helpers is required for the patient to complete the activity. If activity was not attempted, code reason: 7-Patient Refused. 9-Not Applicable-not attempted and the patient did not perform the activity before the current illness, exacerbation or injury. 10-Not Attempted due to Environmental Limitations-(lack of equipment, weather restraints, etc.). 88-Not Attempted due to Medical Conditions or Safety Concerns. Lying to Sitting/Side of Bed(Q: 5 Sit to Stand (QC): 5 Weight Bearing Full Weight Bearing Full Weight Bearing Gait Training Does the Patient Walk?: Yes Distance: 50' x2 Walk 10 feet (QC): 5 Gait Persons Needed: 1 Gait Assistive Device: FWW Fatigues easily, needs frequent RB Exercises Supine Ex: Ankle pumps, Quad Set, Glut sets, Heel Slides, Straight leg raise, Hip abd/add Supine Reps: 15 Seated Therapy Exercises: Ankle pumps, Long arc quads, Hip flexion, Hip abd/add Seated Reps: 15 Treatments Pt's breakfast arrives beginning of tx so MOBILE MARKETING SPECIALIST reviews Supine & Seated Ex while pt eats. Pt tx to EOB then stands. Pt declines need for BR. Pt amb. in hallway taking RB as needed. Pt returns to room to rest in recliner. Repositioned to comfort, all needs met, call light in hand. Assessment Current Status: Fair Progress VC needed for managing O2 line although pt has been on O2 for years per pt report. Pt fatigues easily and needs frequent RB. PT Short Term Goals Short Term Goals Time Frame: Aug 29, 2021 Roll Left & Right: 6 Sit to lyin Lying to sitting on side of be: 4 Sit to stand: 4 Walk 10 feet: 4 PT Implementation Engineer Goals Implementation Engineer Goals PT Implementation Engineer Goals Time Frame: Sep 12, 2021 Roll Left & Right (QC): 6 Sit to Lying (QC): 6 Lying-Sitting on Side/Bed(QC): 6 Sit to Stand (QC): 4 (SBA) Chair/Pgq-sb-Qlyqj Xfer(QC): 4 (SBA) Toilet Transfer (QC): 4 (SBA) Car Transfer (QC): 4 (SBA) Does the Patient Walk: Yes Walk 10 feet (QC): 4 (SBA) Walk 50ft with 2 Turns (QC): 4 (SBA) Walk 150 ft (QC): 88 Walking 10ft on Uneven Surface: 4 (SBA) 1 Step (curb) (QC): 4 (SBA) 4 Steps (QC): 88 12 Steps (QC): 88 Picking up an Object (QC): 4 (SBA using senior librarian) Wheel 50 feet with 2 turns (QC: 9 Wheel 150 feet: 9 PT Plan Problem List Problem List: Activity Tolerance Treatment/Plan Treatment Plan: Continue Plan of Care Treatment Plan: Bed Mobility, Education, Functional Activity Bright, Functional Strength, Group Therapy, Gait, Safety, Therapeutic Exercise, Transfers Treatment Duration: Sep 12, 2021 Frequency: At least 5 of 7 days/Wk (IRF) Estimated Hrs Per Day: 1.5 hours per day Patient and/or Family Agrees t: Yes Safety Risks/Education Patient Education: Gait Training, Transfer Techniques, Correct Positioning, Safety Issues Teaching Recipient: Patient Teaching Methods: Discussion Response to Teaching: Verbalize Understanding Time/GCodes Time In: 800 Time Out: 900 Total Billed Treatment Time: 60 Total Billed Treatment 1, FA x2 (25m), EX (20m) & GT (15m) MARCY CORTES MOBILE MARKETING SPECIALIST Aug 28, 2021 08:56
--- NOTE | 2021-08-28 10:19 | Occupational Ther Daily Note ---
OT Current Status-Daily Note Subjective Pt resting in recliner prior to tx. Pt agreeable to tx, but needed encouragement throughout session to complete tasks by herself. Mental Status/Objective Patient Orientation: Person, Place, Situation Attachments: Oxygen ADL-Treatment Therapy Code Descriptions/Definitions Functional [place] Measure: 0=Not Assessed/NA 4=Minimal Assistance 1=Total Assistance 5=Supervision or Setup 2=Maximal Assistance 6=Modified [place] 3=Moderate Assistance 7=Complete IndependenceSCALE: Activities may be completed with or without assistive devices. 5-Vfnubzpatj-udkzomt completes the activity by him/herself with no assistance from a helper. 5-Set-up or Clean-up Assistance-helper sets up or cleans up; patient completes activity. [place] assists only prior to or following the activity. 4-Supervision or Touching Assistance-helper provides verbal cues and/or touching/steadying and/or contact guard assistance as patient completes activity. Assistance may be provided throughout the activity or intermittently. 3-Partial/Moderate Assistance-helper does LESS THAN HALF the effort. [place] lifts, holds or supports trunk or limbs, but provides less than half the effort. 2-Substantial/Maximal Assistance-helper does MORE THAN HALF the effort. [place] lifts or holds trunk or limbs and provides more than half the effort. 7-Idyxibrzc-zihjwg does ALL the effort. Patient does none of the effort to complete the activity. Or, the assistance of 2 or more helpers is required for the patient to complete the activity. If activity was not attempted, code reason: 7-Patient Refused. 9-Not Applicable-not attempted and the patient did not perform the activity before the current illness, exacerbation or injury. 10-Not Attempted due to Environmental Limitations-(lack of equipment, weather restraints, etc.). 88-Not Attempted due to Medical Conditions or Safety Concerns. Oral Hygiene (QC): 4 (SBA for standing balance) Upper Body Dressing (QC): 5 Lower Body Dressing (QC): 3 (Mod A overall. Pt required assistance threading L feet in pants and hiking pants due to tight pants/leggings) Other Treatment Pt resting in recliner prior to tx. Pt completed dressing seated in recliner then used FWW to walk to the bathroom, SBA, to complete oral hygiene. Pt required frequent RBs throughout the session d/t n/v and SOB. Pt pushed to therapy gym in w/c to complete 15min seated on the arm bike (~15-20 morfin of resistance) to increase BUE strength and endurance, pt took 3 rest breaks during task. Pt pushed back to room. Post tx, pt left seated in w/c with call light in reach and all needs met. Education OT Patient Education: Correct positioning, Energy conservation, Exercise program, Modified ADL techniques, Progress toward Goal/Update tx plan, Purpose of tx/functional activities, Rehab process, Safety issues, Transfer techniques Teaching Recipient: Patient Teaching Methods: Discussion Response to Teaching: Verbalize Understanding OT Short Term Goals Short Term Goals Time Frame: Sep 04, 2021 Toileting hygiene: 4 Shower/bathe self: 4 Lower body dressin Putting on/taking off footwear: 4 OT Detention Goals Detention Goals Time Frame: Sep 15, 2021 Eating (QC): 6 Oral Hygiene (QC): 6 Toileting Hygiene (QC): 6 Shower/Bathe Self (QC): 6 Upper Body Dressing (QC): 6 Lower Body Dressing (QC): 6 On/Off Footwear (QC): 6 Additional Goals: 1-Demonstrate ADL Tasks, 2-Verbalize Understanding, 3- ImproveStrength/Bright 1=Demonstrate adherence to instructed precautions during ADL tasks. 2=Patient will verbalize/demonstrate understanding of assistive devices/modifi cations for ADL. 3=Patient will improve strength/tolerance for activity to enable patient to perform ADL's. OT Education/Plan Problem List/Assessment Assessment: Decreased Activ Tolerance, Decreased UE Strength, Impaired Funct Balance, Impaired I ADL's, Impaired Self-Care Skills Discharge Recommendations Plan/Recommendations: Continue POC Treatment Plan/Plan of Care Patient would benefit from OT for education, treatment and training to promote independence in ADL's, mobility, safety and/or upper extremity function for ADL's. Plan of Care: ADL Retraining, Functional Mobility, Group Exercise/Act as Ind, UE Funct Exercise/Act Treatment Duration: Sep 15, 2021 Frequency: At least 5 of 7 days/Wk (IRF) Estimated Hrs Per Day: 1.5 hours per day Rehab Potential: Fair Time/GCodes Start Time: 09:30 Stop Time: 10:30 Total Time Billed (hr/min): 60 Billed Treatment Time 1, Ex (15'), ADL 3 (45') MOODY BHATT OT Aug 28, 2021 10:19
[2021-08-28] MEDS: SENNA W/DOCUSATE (SENOKOT S) TABLET PO SCH ×2 (11:24→22:39)
[2021-08-28] MEDS: DOCUSATE SODIUM 100 MG (COLACE) CAP PO SCH ×2 (11:24→22:39)
[2021-08-28] MEDS: polyethylene glycoL POWDER 17 GM (MIRALAX) PACK PO SCH ×2 (11:24→22:39)
[2021-08-28] MEDS: CHOLESTYRAMINE 4 GM (QUESTRAN LITE, PREVALITE) PKT PO SCH ×3 (11:24→22:39)
[2021-08-28] MEDS: ENOXAPARIN 40 MG/0.4 ML (LOVENOX) SYR SC SCH (11:33)
--- NOTE | 2021-08-28 13:35 | Occupational Ther Daily Note ---
OT Current Status-Daily Note Subjective Pt laying supine in bed prior to tx. Pt c/o nausea throughout session, but agreeable to tx. Mental Status/Objective Patient Orientation: Person, Place, Situation Attachments: Oxygen ADL-Treatment Therapy Code Descriptions/Definitions Functional [place] Measure: 0=Not Assessed/NA 4=Minimal Assistance 1=Total Assistance 5=Supervision or Setup 2=Maximal Assistance 6=Modified [place] 3=Moderate Assistance 7=Complete IndependenceSCALE: Activities may be completed with or without assistive devices. 9-Eqfoijcokl-kjkvcsp completes the activity by him/herself with no assistance from a helper. 5-Set-up or Clean-up Assistance-helper sets up or cleans up; patient completes activity. [place] assists only prior to or following the activity. 4-Supervision or Touching Assistance-helper provides verbal cues and/or touching/steadying and/or contact guard assistance as patient completes activity. Assistance may be provided throughout the activity or intermittently. 3-Partial/Moderate Assistance-helper does LESS THAN HALF the effort. [place] lifts, holds or supports trunk or limbs, but provides less than half the effort. 2-Substantial/Maximal Assistance-helper does MORE THAN HALF the effort. [place] lifts or holds trunk or limbs and provides more than half the effort. 2-Odhxqiwbp-gmsbtl does ALL the effort. Patient does none of the effort to complete the activity. Or, the assistance of 2 or more helpers is required for the patient to complete the activity. If activity was not attempted, code reason: 7-Patient Refused. 9-Not Applicable-not attempted and the patient did not perform the activity before the current illness, exacerbation or injury. 10-Not Attempted due to Environmental Limitations-(lack of equipment, weather restraints, etc.). 88-Not Attempted due to Medical Conditions or Safety Concerns. Other Treatment Pt laying in bed prior to tx. Pt wheeled to therapy gym to participate in functional activity with graded clothespins. Activity focused on dynamic standing, BUE strength, and activity tolerance. Pt was able to retrieve 8 clothespins from one surface, side shuffle with FWW, and place pin on board, completed two rounds with one seated RB between rounds. Pt completed all transfers with FWW, SBA. Post tx, pt left with PT in therapy gym. Education OT Patient Education: Energy conservation, Exercise program, Modified ADL techniques, Progress toward Goal/Update tx plan, Purpose of tx/functional activities, Rehab process, Transfer techniques Teaching Recipient: Patient Teaching Methods: Demonstration, Discussion Response to Teaching: Verbalize Understanding, Return Demonstration, Reinforcement Needed OT Short Term Goals Short Term Goals Time Frame: Sep 04, 2021 Toileting hygiene: 4 Shower/bathe self: 4 Lower body dressin Putting on/taking off footwear: 4 OT Jail Goals Manager Sap Goals Time Frame: Sep 15, 2021 Eating (QC): 6 Oral Hygiene (QC): 6 Toileting Hygiene (QC): 6 Shower/Bathe Self (QC): 6 Upper Body Dressing (QC): 6 Lower Body Dressing (QC): 6 On/Off Footwear (QC): 6 Additional Goals: 1-Demonstrate ADL Tasks, 2-Verbalize Understanding, 3-Imp roveStrength/Bright 1=Demonstrate adherence to instructed precautions during ADL tasks. 2=Patient will verbalize/demonstrate understanding of assistive devices/modifications for ADL. 3=Patient will improve strength/tolerance for activity to enable patient to perform ADL's. OT Education/Plan Problem List/Assessment Assessment: Decreased Activ Tolerance, Decreased UE Strength, Impaired Funct Balance, Impaired I ADL's, Impaired Self-Care Skills, Restricted Funct UE ROM Discharge Recommendations Plan/Recommendations: Continue POC Treatment Plan/Plan of Care Patient would benefit from OT for education, treatment and training to promote independence in ADL's, mobility, safety and/or upper extremity function for ADL's. Plan of Care: ADL Retraining, Functional Mobility, Group Exercise/Act as Ind, UE Funct Exercise/Act Treatment Duration: Sep 15, 2021 Frequency: At least 5 of 7 days/Wk (IRF) Estimated Hrs Per Day: 1.5 hours per day Rehab Potential: Fair Time/GCodes Start Time: 13:00 Stop Time: 13:30 Total Time Billed (hr/min): 30 Billed Treatment Time 1, FA 2 (30') MOODY BHATT OT Aug 28, 2021 13:35
--- NOTE | 2021-08-28 15:04 | Physical Therapy Daily Note ---
PT Daily Note-Current Subjective Pt sitting in chair in Therapy Gym after finishing working w/OT. Transfers SCALE: Activities may be completed with or without assistive devices. 2-Rbjrxgmgvf-eltrwxh completes the activity by him/herself with no assistance from a helper. 5-Set-up or Clean-up Assistance-helper sets up or cleans up; patient completes activity. [place] assists only prior to or following the activity. 4-Supervision or Touching Assistance-helper provides verbal cues and/or touching/steadying and/or contact guard assistance as patient completes activit y. Assistance may be provided throughout the activity or intermittently. 3-Partial/Moderate Assistance-helper does LESS THAN HALF the effort. [place] lifts, holds or supports trunk or limbs, but provides less than half the effort. 2-Substantial/Maximal Assistance-helper does MORE THAN HALF the effort. [place] lifts or holds trunk or limbs and provides more than half the effort. 9-Fdmqvxjmp-uetlau does ALL the effort. Patient does none of the effort to complete the activity. Or, the assistance of 2 or more helpers is required for the patient to complete the activity. If activity was not attempted, code reason: 7-Patient Refused. 9-Not Applicable-not attempted and the patient did not perform the activity before the current illness, exacerbation or injury. 10-Not Attempted due to Environmental Limitations-(lack of equipment, weather restraints, etc.). 88-Not Attempted due to Medical Conditions or Safety Concerns. Sit to Lying (QC): 5 Sit to Stand (QC): 5 Weight Bearing Full Weight Bearing Full Weight Bearing Gait Training Does the Patient Walk?: Yes Distance: 150' Walk 10 feet (QC): 5 Walk 50 ft with 2 Turns(QC): 4 Walk 150 ft (QC): 4 Gait Persons Needed: 1 Gait Assistive Device: FWW Exercises Seated Therapy Exercises: Ankle pumps, Long arc quads, Hip flexion, Hip abd/add, Glut set Seated Reps: 20 Treatments Pt completes Seated Ex w/RB as needed. Pt amb. in hallway before returning to room to rest Supine in bed. Pt is able to lift B LE into bed. Pt resting all needs met, call light in hand. Assessment Current Status: Fair Progress Pt self limits and needs encouragement to push self for progress as pt reports fatigue. PT Short Term Goals Short Term Goals Time Frame: Aug 29, 2021 Roll Left & Right: 6 Sit to lyin Lying to sitting on side of be: 4 Sit to stand: 4 Walk 10 feet: 4 PT Fpc Goals Fpc Goals PT Mechanical Engineer Goals Time Frame: Sep 12, 2021 Roll Left & Right (QC): 6 Sit to Lying (QC): 6 Lying-Sitting on Side/Bed(QC): 6 Sit to Stand (QC): 4 (SBA) Chair/Swy-ym-Rydpj Xfer(QC): 4 (SBA) Toilet Transfer (QC): 4 (SBA) Car Transfer (QC): 4 (SBA) Does the Patient Walk: Yes Walk 10 feet (QC): 4 (SBA) Walk 50ft with 2 Turns (QC): 4 (SBA) Walk 150 ft (QC): 88 Walking 10ft on Uneven Surface: 4 (SBA) 1 Step (curb) (QC): 4 (SBA) 4 Steps (QC): 88 12 Steps (QC): 88 Picking up an Object (QC): 4 (SBA using rd scientist) Wheel 50 feet with 2 turns (QC: 9 Wheel 150 feet: 9 PT Plan Problem List Problem List: Activity Tolerance, Functional Strength Treatment/Plan Treatment Plan: Continue Plan of Care Treatment Plan: Bed Mobility, Education, Functional Activity Bright, Functional Strength, Group Therapy, Gait, Safety, Therapeutic Exercise, Transfers Treatment Duration: Sep 12, 2021 Frequency: At least 5 of 7 days/Wk (IRF) Estimated Hrs Per Day: 1.5 hours per day Patient and/or Family Agrees t: Yes Safety Risks/Education Patient Education: Gait Training, Correct Positioning, Safety Issues Teaching Recipient: Patient Teaching Methods: Discussion Response to Teaching: Verbalize Understanding Time/GCodes Time In: 1330 Time Out: 1400 Total Billed Treatment Time: 30 Total Billed Treatment 1, EX (15m) & GT (15m) MARCY CORTES THERAPEUTIC MASSAGE TECHNICIAN Aug 28, 2021 15:04
[2021-08-28 19:57] VITALS: BP 111/80
[2021-08-28] MEDS: CYCLOBENZAPRINE 10 MG (FLEXERIL) TAB PO PRN (22:19)
--- NOTE | 2021-08-29 05:45 | PM&R Progress Note ---
Subjective HPI/CC On Admission Date Seen by Provider: Aug 29, 2021 Time Seen by Provider: 11:00 Subjective/Events-last exam 08/29/21: Pt has recurrent nausea I will check labs to make sure it isn't an atypical presentation of an angina Troponin ended up being elevated at 0.44 Dr. Urban was consulted EKG will be obtained Dr. Solo will be consulted too for continued nausea 08/28/21: Patient doing better Less diarrhea Questran improving loose stools Getting stronger slowly 08/27/21: Patient doing well Continued weakness Diarrhea continues so will initiate Questran and check for stool leukocytes No pain is reported 08/26/2021: Patient doing really well No pain is reported other than her chronic pain Nausea is improved No falls Moving around pretty well 08/25/2021: Patient is doing well except nausea today No pain reported other than her usual chronic Garcia out Monitoring closely 08/24/21: Pt is doing really well Discontinue the Unasyn due to blood culture repeat, no growth today Loose bowel movement, sent down the stool studies Discontinue the garcia and hep lock IV fluid today 08/23/21: Pt is doing a little better Keep garcia in for accurate I's and O's Balance is very poor Normal saline at 100 ccs an hour Unison initiated Blood cultures no growth today that I redrew yesterday Review of Systems General: Fatigue, Malaise Objective Exam Vital Signs Vital Signs Date Time Temp Pulse Resp B/P (MAP) Pulse Ox O2 Delivery O2 Flow Rate FiO2 08/29/21 20:06 36.2 98 18 109/78 (88) 100 Nasal Cannula 2.00 Capillary Refill : General Appearance: No Apparent Distress, WD/WN, Anxious, Chronically ill HEENT: PERRL/EOMI, Normal ENT Inspection, Pharynx Normal Neck: Full Range of Motion, Normal Inspection, Non Tender, Supple, Carotid Bruit Respiratory: Chest Non Tender, Lungs Clear, Normal Breath Sounds, No Accessory Muscle Use, No Respiratory Distress, Decreased Breath Sounds Cardiovascular: Regular Rate, Rhythm, No Edema, No Gallop, No JVD, No Murmur, Normal Peripheral Pulses Gastrointestinal: Normal Bowel Sounds, No Organomegaly, No Pulsatile Mass, Non Tender, Soft Back: Normal Inspection, No CVA Tenderness, No Vertebral Tenderness Extremity: Normal Capillary Refill, Normal Inspection, Normal Range of Motion, Non Tender, No Calf Tenderness, No Pedal Edema Neurologic/Psychiatric: Alert, Oriented x3, business center manager II-XII Norm as Tested, Abnormal Gait, Depressed Affect, Motor Weakness (generalized 3/5) Skin: Normal Color, Warm/Dry, Other (pressure ulcer left heel) Lymphatic: No Adenopathy Results/Procedures Lab Laboratory Tests 08/29/21 10:17 Patient resulted labs reviewed. FIM Transfers Therapy Code Descriptions/Definitions Functional [place] Measure: 0=Not Assessed/NA 4=Minimal Assistance 1=Total Assistance 5=Supervision or Setup 2=Maximal Assistance 6=Modified [place] 3=Moderate Assistance 7=Complete IndependenceSCALE: Activities may be completed with or without assistive devices. 7-Vgwwgeilfs-qmyadrf completes the activity by him/herself with no assistance from a helper. 5-Set-up or Clean-up Assistance-helper sets up or cleans up; patient completes activity. [place] assists only prior to or following the activity. 4-Supervision or Touching Assistance-helper provides verbal cues and/or touching/steadying and/or contact guard assistance as patient completes act ivity. Assistance may be provided throughout the activity or intermittently. 3-Partial/Moderate Assistance-helper does LESS THAN HALF the effort. [place] lifts, holds or supports trunk or limbs, but provides less than half the effort. 2-Substantial/Maximal Assistance-helper does MORE THAN HALF the effort. [place] lifts or holds trunk or limbs and provides more than half the effort. 0-Iledefekj-acianv does ALL the effort. Patient does none of the effort to complete the activity. Or, the assistance of 2 or more helpers is required for the patient to complete the activity. If activity was not attempted, code reason: 7-Patient Refused. 9-Not Applicable-not attempted and the patient did not perform the activity before the current illness, exacerbation or injury. 10-Not Attempted due to Environmental Limitations-(lack of equipment, weather restraints, etc.). 88-Not Attempted due to Medical Conditions or Safety Concerns. Roll Left to Right (QC): 6 Sit to Lying (QC): 5 Sit to Stand (QC): 5 Chair/Bhx-rl-Durqw Xfer(QC): 6 Car Transfer (QC): 3 Gait Training Does the Patient Walk?: Yes Distance: 150' Walk 10 feet (QC): 5 Walk 50 ft with 2 Turns(QC): 4 Walk 150 ft (QC): 4 Walking 10ft/uneven surface-QC: 88 Gait Persons Needed: 1 Gait Assistive Device: FWW Wheelchair Training Does the Pt Use a Wheelchair?: Yes Wheel 50 ft with 2 turns (QC): 3 Wheel 150 ft (QC): 88 Type of Wheelchair: Manual Stair Training 1 Step (curb) (QC): 88 4 Steps (QC): 88 12 Steps (QC): 88 Balance Picking up an Object (QC): 88 ADL-Treatment Eating (QC): 5 Oral Hygiene (QC): 4 (SBA for standing balance) Bathing Location: L Arm, R Arm, L Upper Leg, R Upper Leg, L Lower Leg (including foot), R Lower Leg (including foot), Chest, Abdomen Shower/Bathe Self (QC): 3 (Min A. Pt unable to wash buttocks and periarea because she was too fatigued to stand. Pt required min v/c's for safety.) Upper Body Dressing (QC): 5 Lower Body Dressing (QC): 3 (Mod A overall. Pt required assistance threading L feet in pants and hiking pants due to tight pants/leggings) On/Off Footwear (QC): 4 (V/c's required for safety and sequencing) Toileting Hygiene (QC): 3 (Min A for balance, pt able to perform pericare and clothing management.) Assessment/Plan Assessment and Plan Assess & Plan/Chief Complaint Assessment: Debility Dehydration Diarrhea Bacteremia placed on Unasyn now disproved so DC abx Chronic pain on Fentanyl patch and Hydrocodone Multiple falls Left heel ulcer pressure type present prior to admit Bedridden h/o Left lacunar cerebellar infarct with gait imbalance and dyscoordination on the left 2016 HTN controlled Hypothyroidosm on replacement Post thoracotomy pain syndrome on pain meds Mild anemia O2 dependence s/p thoracotomy Chronic nausea Plan: Home meds IVF Unasyn Repeat BCx PT OT O2 08/23: Stool studies IVF Unasyn Monitor closely 08/24/21: Monitor closely DC IVF Garcia DC 08/25: Monitor nausea Supportive care 08/26/2021: Supportive care Increase oral fluids Chronic pain management 08/27/21: Questran 3 times daily Supportive care 08/28/21: Questran PT OT 08/29/21: Dr Urban consult Dr Solo consult EKG (1) Dehydration Status: Acute (2) Diarrhea Status: Acute (3) Hypotension Status: Acute (4) Cerebellar stroke MECHELLE FOY DO Aug 29, 2021 05:45
[2021-08-29] MEDS: LEVOTHYROXINE 75 MCG (LEVOTHROID) TABLET PO SCH (06:41)
[2021-08-29] MEDS: HYDROcodone/APAP 5 MG/325 MG (LORTAB) TAB PO PRN ×3 (07:17→21:59)
[2021-08-29] MEDS: ASPIRIN E.C. 81 MG (ECOTRIN) TAB PO SCH (07:17)
[2021-08-29] MEDS: PARoxetine 10 MG (PAXIL) TAB PO SCH (07:17)
[2021-08-29] MEDS: PARoxetine 20 MG (PAXIL) TAB PO SCH (07:17)
[2021-08-29] MEDS: KCL 20 MEQ TAB (K-DUR) PO SCH ×2 (07:17→18:09)
[2021-08-29] MEDS: SILVER SULFADIAZINE 400 GM CREAM TOP SCH ×2 (07:18→22:00)
[2021-08-29] MEDS: HYPOCHLOROUS ACID/NaCl (VASHE) 250 ML IR SCH ×2 (07:18→21:59)
[2021-08-29 07:19] VITALS: BP 123/87
[2021-08-29] MEDS: COLLAGENASE 30 GM (SANTYL) TUBE TP SCH ×2 (07:19→21:59)
[2021-08-29] MEDS: ONDANSETRON 4 MG (ZOFRAN) ORAL DISSOLVE TAB PO PRN (08:13)
--- NOTE | 2021-08-29 09:50 | Occupational Ther Daily Note ---
OT Current Status-Daily Note Subjective Pt resting in bed prior to OT tx, agreeable to tx. Pt c/o chest pain, saying "it feels like something heavy is sitting on my chest",. nurse aware. Mental Status/Objective Patient Orientation: Person, Situation Attachments: Oxygen ADL-Treatment Therapy Code Descriptions/Definitions Functional [place] Measure: 0=Not Assessed/NA 4=Minimal Assistance 1=Total Assistance 5=Supervision or Setup 2=Maximal Assistance 6=Modified [place] 3=Moderate Assistance 7=Complete IndependenceSCALE: Activities may be completed with or without assistive devices. 5-Wumibwugct-lotumkv completes the activity by him/herself with no assistance from a helper. 5-Set-up or Clean-up Assistance-helper sets up or cleans up; patient completes activity. [place] assists only prior to or following the activity. 4-Supervision or Touching Assistance-helper provides verbal cues and/or touching/steadying and/or contact guard assistance as patient completes activity. Assistance may be provided throughout the activity or intermittently. 3-Partial/Moderate Assistance-helper does LESS THAN HALF the effort. [place] lifts, holds or supports trunk or limbs, but provides less than half the effort. 2-Substantial/Maximal Assistance-helper does MORE THAN HALF the effort. [place] lifts or holds trunk or limbs and provides more than half the effort. 1-Hwkzenuxg-iopxgr does ALL the effort. Patient does none of the effort to complete the activity. Or, the assistance of 2 or more helpers is required for the patient to complete the activity. If activity was not attempted, code reason: 7-Patient Refused. 9-Not Applicable-not attempted and the patient did not perform the activity before the current illness, exacerbation or injury. 10-Not Attempted due to Environmental Limitations-(lack of equipment, weather restraints, etc.). 88-Not Attempted due to Medical Conditions or Safety Concerns. Shower/Bathe Self (QC): 4 (SBA for balance) Upper Body Dressing (QC): 5 Lower Body Dressing (QC): 3 (Min A overall. Pt required assistance to thread L foot through briefs. ) On/Off Footwear: 4 (SBA for balance) Other Treatment Pt resting in bed prior to tx. Pt transferred from bed to bathroom with FWW, SBA, to complete showering and dressing. Pt c/o chest pain during tx, nurse notified. Pt required more RBs throughout session d/t chest pain and SOB; however, RB periods were shorter today. Pt transferred from bathroom to recliner with FWW, SBA. Pt independently applied lotion to BUE while seated in recliner. Post tx, pt left in recliner, call light in reach and all needs met. salvage engineering technician present to draw blood. Education OT Patient Education: Energy conservation, Exercise program, Modified ADL techniques, Progress toward Goal/Update tx plan, Purpose of tx/functional activities, Rehab process, Safety issues Teaching Recipient: Patient Teaching Methods: Discussion Response to Teaching: Verbalize Understanding, Reinforcement Needed OT Short Term Goals Short Term Goals Time Frame: Sep 04, 2021 Toileting hygiene: 4 Shower/bathe self: 4 Lower body dressin Putting on/taking off footwear: [address] Supervisor Goals General Road Supervisor Goals Time Frame: Sep 15, 2021 Eating (QC): 6 Oral Hygiene (QC): 6 Toileting Hygiene (QC): 6 Shower/Bathe Self (QC): 6 Upper Body Dressing (QC): 6 Lower Body Dressing (QC): 6 On/Off Footwear (QC): 6 Additional Goals: 1-Demonstrate ADL Tasks, 2-Verbalize Understanding, 3- ImproveStrength/Bright 1=Demonstrate adherence to instructed precautions during ADL tasks. 2=Patient will verbalize/demonstrate understanding of assistive nakul tao/modifications for ADL. 3=Patient will improve strength/tolerance for activity to enable patient to perform ADL's. OT Education/Plan Problem List/Assessment Assessment: Decreased Activ Tolerance, Decreased Safety Aware, Decreased UE Strength, Impaired Funct Balance, Impaired I ADL's, Impaired Self-Care Skills Discharge Recommendations Plan/Recommendations: Continue POC Treatment Plan/Plan of Care Patient would benefit from OT for education, treatment and training to promote independence in ADL's, mobility, safety and/or upper extremity function for ADL's. Plan of Care: ADL Retraining, Functional Mobility, Group Exercise/Act as Ind, U E Funct Exercise/Act Treatment Duration: Sep 15, 2021 Frequency: At least 5 of 7 days/Wk (IRF) Estimated Hrs Per Day: 1.5 hours per day Rehab Potential: Fair Time/GCodes Start Time: 09:00 Stop Time: 10:00 Total Time Billed (hr/min): 60 Billed Treatment Time 1, ADL 4 (60') MOODY BHATT OT Aug 29, 2021 09:50
[2021-08-29] MEDS: DOCUSATE SODIUM 100 MG (COLACE) CAP PO SCH ×2 (10:10→22:11)
[2021-08-29] MEDS: CHOLESTYRAMINE 4 GM (QUESTRAN LITE, PREVALITE) PKT PO SCH ×3 (10:10→22:11)
[2021-08-29] MEDS: SENNA W/DOCUSATE (SENOKOT S) TABLET PO SCH ×2 (10:10→22:12)
[2021-08-29] MEDS: polyethylene glycoL POWDER 17 GM (MIRALAX) PACK PO SCH ×2 (10:10→22:11)
[2021-08-29 10:25] LABS: BASOPHILS % (AUTO) 0 % (0-10); EOSINOPHILS # (AUTO) 0.1 10^3/uL (0.0-0.3); EOSINOPHILS % (AUTO) 1 % (0-10); HEMATOCRIT 29 % (35-52); HEMOGLOBIN 9.4 g/dL (11.5-16.0); LYMPHOCYTES # (AUTO) 1.9 10^3/uL (1.0-4.0); LYMPHOCYTES % (AUTO) 18 % (12-44); MEAN CORPUSCULAR HEMOGLOBIN 33 pg (25-34); MEAN CORPUSCULAR HGB CONC 33 g/dL (32-36); MEAN CORPUSCULAR VOLUME 100 fL (80-99); MONOCYTES # (AUTO) 0.8 10^3/uL (0.0-1.0); MONOCYTES % (AUTO) 7 % (0-12); NEUTROPHILS # (AUTO) 7.6 10^3/uL (1.8-7.8); NEUTROPHILS % (AUTO) 73 % (42-75); PLATELET COUNT 434 10^3/uL (130-400); WHITE BLOOD COUNT 10.4 10^3/uL (4.3-11.0)
[2021-08-29 10:44] LABS: ALBUMIN 2.3 GM/DL (3.2-4.5); BILIRUBIN,TOTAL 0.6 MG/DL (0.1-1.0); CALCIUM 8.3 MG/DL (8.5-10.1); CREATININE SERUM 0.72 MG/DL (0.60-1.30); POTASSIUM 4.6 MMOL/L (3.6-5.0); TOTAL PROTEIN 5.2 GM/DL (6.4-8.2)
--- NOTE | 2021-08-29 11:04 | Physical Therapy Daily Note ---
PT Daily Note-Current Subjective Pt laying Supine in bed upon arrival. Pt reports feeling nauseated. Nurse is informed and pt agrees to this time take anti-nausea med. Pt agrees to limited PT as pt is aware that Saturday (3 days from now) is d/c and progress needs to be worked toward pt's goal of d/c to [facility]. Pain Location Body Site: Chest Pain Description: Pressure Comment: Reports chest pain but doesn't rate Mental Status Patient Orientation: Person, Place, Situation Attachments: Oxygen Transfers SCALE: Activities may be completed with or without assistive devices. 3-Qmahgmrygh-ggieckc completes the activity by him/herself with no assistance from a helper. 5-Set-up or Clean-up Assistance-helper sets up or cleans up; patient completes activity. [place] assists only prior to or following the activity. 4-Supervision or Touching Assistance-helper provides verbal cues and/or touching/steadying and/or contact guard assistance as patient completes activity. Assistance may be provided throughout the activity or intermittently. 3-Partial/Moderate Assistance-helper does LESS THAN HALF the effort. [place] lifts, holds or supports trunk or limbs, but provides less than half the effort. 2-Substantial/Maximal Assistance-helper does MORE THAN HALF the effort. [place] lifts or holds trunk or limbs and provides more than half the effort. 2-Atcaqmgoz-zchclv does ALL the effort. Patient does none of the effort to complete the activity. Or, the assistance of 2 or more helpers is required for the patient to complete the activity. If activity was not attempted, code reason: 7-Patient Refused. 9-Not Applicable-not attempted and the patient did not perform the activity before the current illness, exacerbation or injury. 10-Not Attempted due to Environmental Limitations-(lack of equipment, weather restraints, etc.). 88-Not Attempted due to Medical Conditions or Safety Concerns. Lying to Sitting/Side of Bed(Q: 5 Sit to Stand (QC): 5 Toilet Transfer (QC): 5 Weight Bearing Full Weight Bearing Full Weight Bearing Gait Training Does the Patient Walk?: Yes Distance: 15' Walk 10 feet (QC): 5 Gait Assistive Device: FWW VC to manage O2 line as pt rolls over it and at times gets it wound around foot Exercises Supine Ex: Bridging, Ankle pumps, Quad Set, Rolling, Glut sets, Heel Slides, Scooting, Straight leg raise, Hip abd/add Supine Reps: 15 Seated Therapy Exercises: Sit to stand Assessment Current Status: Fair Progress Pt self limits and reports nausea often. Pt reports chest pain/pressure today. Dr Vazquez notified. PT Short Term Goals Short Term Goals Time Frame: Aug 29, 2021 Roll Left & Right: 6 Sit to lyin Lying to sitting on side of be: 4 Sit to stand: 4 Walk 10 feet: 4 PT Energy Efficient Site Manager Goals [facility] Goals PT Energy Efficient Site Manager Goals Time Frame: Sep 12, 2021 Roll Left & Right (QC): 6 Sit to Lying (QC): 6 Lying-Sitting on Side/Bed(QC): 6 Sit to Stand (QC): 4 (SBA) Chair/Yql-zk-Qfqqw Xfer(QC): 4 (SBA) Toilet Transfer (QC): 4 (SBA) Car Transfer (QC): 4 (SBA) Does the Patient Walk: Yes Walk 10 feet (QC): 4 (SBA) Walk 50ft with 2 Turns (QC): 4 (SBA) Walk 150 ft (QC): 88 Walking 10ft on Uneven Surface: 4 (SBA) 1 Step (curb) (QC): 4 (SBA) 4 Steps (QC): 88 12 Steps (QC): 88 Picking up an Object (QC): 4 (SBA using store operations associate) Wheel 50 feet with 2 turns (QC: 9 Wheel 150 feet: 9 PT Plan Problem List Problem List: Activity Tolerance, Functional Strength, Safety Treatment/Plan Treatment Plan: Continue Plan of Care Treatment Plan: Bed Mobility, Education, Functional Activity Bright, Functional Strength, Group Therapy, Gait, Safety, Therapeutic Exercise, Transfers Treatment Duration: Sep 12, 2021 Frequency: At least 5 of 7 days/Wk (IRF) Estimated Hrs Per Day: 1.5 hours per day Patient and/or Family Agrees t: Yes Safety Risks/Education Patient Education: Gait Training, Safety Issues Teaching Recipient: Patient Teaching Methods: Discussion Response to Teaching: Verbalize Understanding Time/GCodes Time In: 800 Time Out: 900 Total Billed Treatment Time: 60 Total Billed Treatment 1, EX x2 (30m) & FA x2 (30m) MARCY CORTES PTA Aug 29, 2021 11:04
[2021-08-29] MEDS: ENOXAPARIN 40 MG/0.4 ML (LOVENOX) SYR SC SCH (12:11)
--- NOTE | 2021-08-29 13:29 | Physical Therapy Daily Note ---
PT Daily Note-Current Subjective Pt laying Supine in bed upon arrival. Pt agrees to PT, still reporting nausea. Mental Status Patient Orientation: Person, Place, Situation Attachments: Oxygen Transfers SCALE: Activities may be completed with or without assistive devices. 3-Jpmhcvixlk-uriaejv completes the activity by him/herself with no assistance from a helper. 5-Set-up or Clean-up Assistance-helper sets up or cleans up; patient completes activity. [place] assists only prior to or following the activity. 4-Supervision or Touching Assistance-helper provides verbal cues and/or touching/steadying and/or contact guard assistance as patient completes activity. Assistance may be provided throughout the activity or intermittently. 3-Partial/Moderate Assistance-helper does LESS THAN HALF the effort. [place] lifts, holds or supports trunk or limbs, but provides less than half the effort. 2-Substantial/Maximal Assistance-helper does MORE THAN HALF the effort. [place] lifts or holds trunk or limbs and provides more than half the effort. 8-Ogpugjxco-exvahg does ALL the effort. Patient does none of the effort to complete the activity. Or, the assistance of 2 or more helpers is required for the patient to complete the activity. If activity was not attempted, code reason: 7-Patient Refused. 9-Not Applicable-not attempted and the patient did not perform the activity before the current illness, exacerbation or injury. 10-Not Attempted due to Environmental Limitations-(lack of equipment, weather restraints, etc.). 88-Not Attempted due to Medical Conditions or Safety Concerns. Weight Bearing Full Weight Bearing Full Weight Bearing Exercises Supine Ex: Ankle pumps, Quad Set, Glut sets, Heel Slides, Straight leg raise, Hip abd/add Supine Reps: 15 Treatments Pt completes Supine EX with several RBs due to fatigue and nausea. DIESEL ENGINE SPECIALIST encourages pt to push self but pt reports doing all she can. Pt resting in bed at end of tx. All needs met, call light in hand. Assessment Current Status: Fair Progress Nausea limits participation with tx. PT Short Term Goals Short Term Goals Time Frame: Aug 29, 2021 Roll Left & Right: 6 Sit to lyin Lying to sitting on side of be: 4 Sit to stand: 4 Walk 10 feet: 4 PT Skilled Nursing Goals Athletics Director Goals PT Athletics Director Goals Time Frame: Sep 12, 2021 Roll Left & Right (QC): 6 Sit to Lying (QC): 6 Lying-Sitting on Side/Bed(QC): 6 Sit to Stand (QC): 4 (SBA) Chair/Gwr-gs-[place] Xfer(QC): 4 (SBA) Toilet Transfer (QC): 4 (SBA) Car Transfer (QC): 4 (SBA) Does the Patient Walk: Yes Walk 10 feet (QC): 4 (SBA) Walk 50ft with 2 Turns (QC): 4 (SBA) Walk 150 ft (QC): 88 Walking 10ft on Uneven Surface: 4 (SBA) 1 Step (curb) (QC): 4 (SBA) 4 Steps (QC): 88 12 Steps (QC): 88 Picking up an Object (QC): 4 (SBA using clay carman) Wheel 50 feet with 2 turns (QC: 9 Wheel 150 feet: 9 PT Plan Problem List Problem List: Activity Tolerance Treatment/Plan Treatment Plan: Continue Plan of Care Treatment Plan: Bed Mobility, Education, Functional Activity Bright, Functional Strength, Group Therapy, Gait, Safety, Therapeutic Exercise, Transfers Treatment Duration: Sep 12, 2021 Frequency: At least 5 of 7 days/Wk (IRF) Estimated Hrs Per Day: 1.5 hours per day Patient and/or Family Agrees t: Yes Time/GCodes Time In: 1300 Time Out: 1330 Total Billed Treatment Time: 30 Total Billed Treatment 1, FA (10m) & EX (20m) MARCY CORTES DIESEL ENGINE SPECIALIST Aug 29, 2021 13:29
--- NOTE | 2021-08-29 14:24 | Occupational Ther Daily Note ---
OT Current Status-Daily Note Subjective Pt reclining in bed eating lunch prior to OT tx. Pt reports that chest pain is feeling better. Pt agreeable to tx. Mental Status/Objective Patient Orientation: Person, Place, Situation Attachments: Oxygen ADL-Treatment Therapy Code Descriptions/Definitions Functional [place] Measure: 0=Not Assessed/NA 4=Minimal Assistance 1=Total Assistance 5=Supervision or Setup 2=Maximal Assistance 6=Modified [place] 3=Moderate Assistance 7=Complete IndependenceSCALE: Activities may be completed with or without assistive devices. 6-Dbcmjgtvno-urbmdyp completes the activity by him/herself with no assistance from a helper. 5-Set-up or Clean-up Assistance-helper sets up or cleans up; patient completes activity. [place] assists only prior to or following the activity. 4-Supervision or Touching Assistance-helper provides verbal cues and/or touching/steadying and/or contact guard assistance as patient completes activity. Assistance may be provided throughout the activity or intermittently. 3-Partial/Moderate Assistance-helper does LESS THAN HALF the effort. [place] lifts, holds or supports trunk or limbs, but provides less than half the effort. 2-Substantial/Maximal Assistance-helper does MORE THAN HALF the effort. [place] lifts or holds trunk or limbs and provides more than half the effort. 3-Vqyxsirwn-ynlbgk does ALL the effort. Patient does none of the effort to complete the activity. Or, the assistance of 2 or more helpers is required for the patient to complete the activity. If activity was not attempted, code reason: 7-Patient Refused. 9-Not Applicable-not attempted and the patient did not perform the activity before the current illness, exacerbation or injury. 10-Not Attempted due to Environmental Limitations-(lack of equipment, weather restraints, etc.). 88-Not Attempted due to Medical Conditions or Safety Concerns. Eating (QC): 6 Other Treatment Pt reclining in bed eating lunch prior to tx. Pt educated on safe positions when eating to prevent aspirations/choking. Pt listened to education but said laying down "gives me more room." Pt moved supine to seated EOB, SBA, and then transferred to w/c, CGA. Pt pushed to therapy gym to complete 15min seated on arm bike with (~20watts resistance), pt required 3-4 RB. Pt pushed back to room and transferred to recliner, CGA. Post tx, pt left in recliner with call light in reach and all needs met. Education OT Patient Education: Correct positioning, Energy conservation, Exercise program, Modified ADL techniques, Progress toward Goal/Update tx plan, Purpose of tx/functional activities, Rehab process Teaching Recipient: Patient Teaching Methods: Discussion Response to Teaching: Verbalize Understanding, Reinforcement Needed OT Short Term Goals Short Term Goals Time Frame: Sep 04, 2021 Toileting hygiene: 4 Shower/bathe self: 4 Lower body dressin Putting on/taking off footwear: [address] Truck Driver Goals Highway Truck Driver Goals Time Frame: Sep 15, 2021 Eating (QC): 6 Oral Hygiene (QC): 6 Toileting Hygiene (QC): 6 Shower/Bathe Self (QC): 6 Upper Body Dressing (QC): 6 Lower Body Dressing (QC): 6 On/Off Footwear (QC): 6 Additional Goals: 1-Demonstrate ADL Tasks, 2-Verbalize Understanding, 3- ImproveStrength/Bright 1=Demonstrate adherence to instructed precautions during ADL tasks. 2=Patient will verbalize/demonstrate understanding of assistive devices/modifications for ADL. 3=Patient will improve strength/tolerance for activity to enable patient to perform ADL's. OT Education/Plan Problem List/Assessment Assessment: Decreased Activ Tolerance, Decreased Safety Aware, Decreased UE Strength, Impaired Coordination, Impaired Funct Balance, Impaired I ADL's, Impaired Self-Care Skills, Restricted Funct UE ROM Discharge Recommendations Plan/Recommendations: Continue POC Treatment Plan/Plan of Care Patient would benefit from OT for education, treatment and training to promote independence in ADL's, mobility, safety and/or upper extremity function for ADL's. Plan of Care: ADL Retraining, Functional Mobility, Group Exercise/Act as Ind, UE Funct Exercise/Act Treatment Duration: Sep 15, 2021 Frequency: At least 5 of 7 days/Wk (IRF) Estimated Hrs Per Day: 1.5 hours per day Rehab Potential: Fair Time/GCodes Start Time: 14:00 Stop Time: 14:30 Total Time Billed (hr/min): 30 Billed Treatment Time 1, FA 2 (30') MOODY BHATT OT Aug 29, 2021 14:24
--- NOTE | 2021-08-29 15:17 | Consultation - Surgery ---
History of Present Illness History of Present Illness Patient Consulted On(brandon/time) 08/29/21 15:13 Date Seen by Provider: Aug 29, 2021 Time Seen by Provider: 15:00 History of Present Illness Consult requested by Dr. Vazquez for chronic nausea. Patient is 60-year-old female who states she been having nausea for about 12 years or since having been asked any. Patient states that she will have about 2-3 times per week. It fluctuates in intensity. She states that nothing really seems to bring it on. She states that the only thing that she really found over time it is rabeprazole has helped. She is has tried Protonix previously and this really did not settle well with her made her more ill she states. She also states that she typically does not eat a whole lot but getting more food while she is been in the hospital has made things worse as well. She states that she is abdominal pain for a long time is DIFFUSE. Very minimal in intensity. She is also had diarrhea which she states is slightly improved. No blood in the stools but she is nervous. Overall has slowly been getting stronger since admission. Denies fever sweats chills shortness of breath or chest pain at this time. Patient in rehab due to multiple fall and weakness. Allergies and Home Medications Allergies Coded Allergies: varenicline (Verified Allergy, Unknown, 08/22/21) Patient Home Medication List Home Medication List Reviewed: Yes Aspirin (Aspirin EC) 81 Mg Tablet.dr, 81 MG PO DAILY, (Reported) Entered as Reported by: MARIA DOLORES LAM on 08/22/211146 Last Action: Continued Atorvastatin Calcium (Atorvastatin Calcium) 40 Mg Tablet, 40 MG PO HS, (Reported) Entered as Reported by: MARIA DOLORES LAM on 08/22/211146 Last Action: Continued Cyclobenzaprine HCl (Cyclobenzaprine HCl) 10 Mg Tablet, 10 MG PO TID PRN for MUSCLE SPASMS, (Reported) Entered as Reported by: BRINDA PEREZ on 01/07/17 0824 Last Action: Continued Fentanyl (Fentanyl Patch 50 MCG) 50 Mcg/Hour Patch.td72, 50 MCG TD Q72H, (Reported) Entered as Reported by: MARIA DOLORES LAM on 08/22/211146 Last Action: Continued Fluticasone Propionate (Fluticasone Propionate) 50 Mcg/Actuation [place].susp, 1 SPRAY NSEACH DAILY PRN for CONGESTION, (Reported) Entered as Reported by: MARIA DOLORES LAM on 08/22/211146 Last Action: Continued Gabapentin (Gabapentin) 600 Mg Tablet, 600 MG PO BID PRN for PAIN-BREAKTHROUGH, (Reported) Entered as Reported by: BRINDA PEREZ on 01/07/17823 Last Action: Continued Hydrocodone/Acetaminophen (Hydrocodone-Acetamin 5-325 mg) 5 Mg-325 Mg Tablet, 1 EA PO Q4H PRN for PAIN-MODERATE (5-7), (Reported) Entered as Reported by: MARIA DOLORES LAM on 08/22/211146 Last Action: Continued Hydroxyzine HCl (Hydroxyzine HCl) 50 Mg Tablet, 50 MG PO TID PRN for ANXIETY, (Reported) Entered as Reported by: MARIA DOLORES LAM on 08/22/211146 Last Action: Converted Levothyroxine Sodium (Levothyroxine Sodium) 75 Mcg Tablet, 75 MCG PO DAILY, (Reported) Entered as Reported by: MARIA DOLORES LAM on 08/22/211146 Last Action: Continued Losartan Potassium (Losartan Potassium) 100 Mg Tablet, 100 MG PO HS, (Reported) Entered as Reported by: BRINDA PEREZ on 01/07/17823 Last Action: Held Metoprolol Succinate (Metoprolol Succinate) 100 Mg Tab.er.24h, 100 MG PO DAILY, (Reported) Entered as Reported by: BRINDA PEREZ on 01/07/17823 Last Action: Continued Paroxetine HCl (Paroxetine HCl) 10 Mg Tablet, 10 MG PO DAILY, (Reported) Entered as Reported by: MARIA DOLORES LAM on 08/22/211147 Last Action: Continued Paroxetine HCl (Paroxetine HCl) 40 Mg Tablet, 40 MG PO DAILY, (Reported) Entered as Reported by: MARIA DOLORES LAM on 08/22/211147 Last Action: Converted Rabeprazole Sodium (Aciphex) 20 Mg Tablet.dr, 20 MG PO BID, (Reported) Entered as Reported by: BRINDA PEREZ on 01/07/17823 Last Action: Converted Discontinued Medications Amlodipine Besylate (Amlodipine Besylate) 10 Mg Tablet, 10 MG PO DAILY, (Reported) Discontinued Reason: No Longer Taking Entered as Reported by: BRINDA PEREZ on 01/07/17827 Last Action: Discontinued Aspirin (Aspirin EC) 81 Mg Tablet.dr, 81 MG PO DAILY Discontinued Reason: No Longer Taking Prescribed by: LARA ROSALES on 01/15/17901 Last Action: Discontinued Atorvastatin Calcium (Lipitor) 40 Mg Tablet, 40 MG PO HS Discontinued Reason: No Longer Taking Prescribed by: LARA ROSALES on 01/15/17901 Last Action: Discontinued Biotin (Biotin) 1 Mg Tablet, 1 MG PO 1200, (Reported) Discontinued Reason: No Longer Taking Entered as Reported by: BRINDA PEREZ on 01/07/17823 Last Action: Discontinued Buspirone HCl (Buspirone HCl) 5 Mg Tablet, 5 MG PO DAILY, (Reported) Discontinued Reason: No Longer Taking Entered as Reported by: BRINDA PEREZ on 01/07/17823 Last Action: Discontinued Buspirone HCl (Buspirone HCl) 7.5 Mg Tablet, 7.5 MG PO HS, (Reported) Discontinued Reason: No Longer Taking Entered as Reported by: BRINDA PEREZ on 01/07/17823 Last Action: Discontinued Cholecalciferol (Vitamin D3) (Vitamin D3) 1,000 Unit Capsule, 1,000 UNIT PO 1200, (Reported) Discontinued Reason: No Longer Taking Entered as Reported by: BRINDA PEREZ on 01/07/17823 Last Action: Discontinued Citalopram Hydrobromide (Citalopram HBr) 40 Mg Tablet, 40 MG PO DAILY, (Reported) Discontinued Reason: No Longer Taking Entered as Reported by: BRINDA PEREZ on 01/07/17823 Last Action: Discontinued Diazepam (Valium) 2 Mg Tablet, 2 MG PO Q12H PRN for ANXIETY Discontinued Reason: No Longer Taking Prescribed by: LARA ROSALES on 01/15/17901 Last Action: Discontinued Docusate Sodium (Colace) 100 Mg Capsule, 200 MG PO HS, (Reported) Discontinued Reason: No Longer Taking Entered as Reported by: BRINDA PEREZ on 01/07/17823 Last Action: Discontinued Docusate Sodium (Colace) 100 Mg Capsule, 100 MG PO DAILY, (Reported) Discontinued Reason: No Longer Taking Entered as Reported by: BRINDA PEREZ on 01/07/17823 Last Action: Discontinued Fentanyl (Fentanyl Patch 50 MCG) 1 Each Patch.td72, 50 MCG TD Q72H, (Reported) Discontinued Reason: No Longer Taking Entered as Reported by: BRINDA PEREZ on 01/07/17823 Last Action: Discontinued Ferrous Sulfate (Ferrous Sulfate) 325 Mg Tablet, 325 MG PO HS, (Reported) Discontinued Reason: No Longer Taking Entered as Reported by: BRINDA PEREZ on 01/07/17823 Last Action: Discontinued Gabapentin (Gabapentin) 300 Mg Capsule, 300-600 MG PO 1200 PRN for NERVE PAIN, (Reported) Discontinued Reason: No Longer Taking Entered as Reported by: BRINDA PEREZ on 01/07/17827 Last Action: Discontinued Gabapentin (Gabapentin) 300 Mg Capsule, 900 MG PO HS, (Reported) Discontinued Reason: No Longer Taking Entered as Reported by: BRINDA PEREZ on 01/07/17836 Last Action: Discontinued Hydrocodone Bit/Acetaminophen (HYDROcodone/APAP 10/325 TABLET) 1 Each Tablet, 1 TAB PO Q6H PRN for PAIN-MODERATE, (Reported) Discontinued Reason: No Longer Taking Entered as Reported by: BRINDA PEREZ on 01/07/17823 Last Action: Discontinued Levothyroxine Sodium (Synthroid) 75 Mcg Tablet, 75 MCG PO DAILY@0630 Discontinued Reason: No Longer Taking Prescribed by: LARA ROSALES on 01/15/17902 Last Action: Discontinued Loratadine (Loratadine) 10 Mg Tablet, 10 MG PO DAILY, (Reported) Discontinued Reason: No Longer Taking Entered as Reported by: BRINDA PEREZ on 01/07/17823 Last Action: Discontinued Multivitamin (Daily Multiple Vitamin) 1 Each Tablet, 1 TAB PO 1200, (Reported) Discontinued Reason: No Longer Taking Entered as Reported by: BRINDA PEREZ on 01/07/17823 Last Action: Discontinued Past Jdzvqcd-Eldfaq-Bohpsm Hx Patient Social History Smoking Status: Former Smoker Type Used: Cigarettes Recent Hopitalizations: Yes Alcohol Use?: No Have you traveled recently?: No Immunizations Up To Date Date of Pneumonia Vaccine: Dec 06, 2015 Date of Influenza Vaccine: Jan 08, 2017 Seasonal Allergies Seasonal Allergies: No Surgeries History of Surgeries: Yes Surgeries: Lobectomy Respiratory History of Respiratory Disorde: Yes Respiratory Disorders: COPD Cardiovascular History of Cardiac Disorders: Yes Cardiac Disorders: High Cholesterol, Hypertension Neurological History of Neurological Disord: Yes Neurological Disorders: Neuropathy, Stroke Genitourinary History of Genitourinary Disor: No Genitourinary Disorders: Bladder Infection Gastrointestinal Gastrointestinal Disorders: Chronic Constipation Musculoskeletal History of Musculoskeletal Dis: Yes Musculoskeletal Disorders: Arthritis 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) HEENT History of HEENT Disorders: No Cancer History of Cancer: Yes (lung ca 2009) Cancer: Lung Psychosocial History of Psychiatric Problem: Yes Behavioral Health Disorders: Anxiety, Depression Integumentary History of Skin or Integumenta: No Blood Transfusions History of Blood Disorders: No Adverse Reaction to a Blood Tr: No Reviewed Nursing Assessment Reviewed/Agree w Nursing PMH: Yes Family Medical History Significant Family History: No Pertinent Family Hx Review of Systems-General Constitutional: No fever; weakness EENTM: No blurred vision, No double vision Respiratory: No cough, No dyspnea on exertion Cardiovascular: No chest pain, No palpitations Gastrointestinal: abdominal pain, nausea; No vomiting Genitourinary: No decreased output, No discharge Musculoskeletal: No back pain, No joint pain Skin: No change in color, No change in hair/nails Psychiatric/Neurological: Denies Anxiety, Denies Depressed, Denies Emotional Problems All Other Systems Reviewed Negative Unless Noted: Yes (Negative excepted noted.) Physical Exam-General Problems Physical Exam Vital Signs Vital Signs - First Documented 08/23/21 07:34 Temp 36.1 Pulse 80 Resp 16 B/P (MAP) 127/86 (100) Pulse Ox 95 O2 Delivery Nasal Cannula O2 Flow Rate 2.00 Capillary Refill : General Appearance: WD/WN, no apparent distress HEENT: PERRL/EOMI, normal ENT inspection Neck: non-tender, supple Respiratory: chest non-tender, no respiratory distress, no accessory muscle use Cardiovascular: regular rate, rhythm, no JVD Gastrointestinal: soft, tenderness (very minimal discomofort diffusely) Rectal: deferred Back: no CVA tenderness, no vertebral tenderness Extremities: non-tender, no pedal edema, no calf tenderness Neurologic/Psychiatric: ball assembler II-XII nml as tested, no motor/sensory deficits, alert, normal mood/affect Skin: normal color, warm/dry Lymphatic: no adenopathy Data Review Labs Laboratory Tests 08/29/21 10:17: White Blood Count 10.4, Red Blood Count 2.86L, Hemoglobin 9.4L, Hematocrit 29L, Mean Corpuscular Volume 100H, Mean Corpuscular Hemoglobin 33, Mean Corpuscular Hemoglobin Concent 33, Red Cell Distribution Width 18.8H, Platelet Count 434H, Mean Platelet Volume 10.0, Immature Granulocyte % (Auto) 1, Neutrophils (%) (Aut o) 73, Lymphocytes (%) (Auto) 18, Monocytes (%) (Auto) 7, Eosinophils (%) (Auto) 1, Basophils (%) (Auto) 0, Neutrophils # (Auto) 7.6, Lymphocytes # (Auto) 1.9, Monocytes # (Auto) 0.8, Eosinophils # (Auto) 0.1, Basophils # (Auto) 0.0, Immature Granulocyte # (Auto) 0.1, Sodium Level 134L, Potassium Level 4.6, Chloride Level 98, Carbon Dioxide Level 26, Anion Gap 10, Blood Urea Nitrogen 3L , Creatinine 0.72, Estimat Glomerular Filtration Rate 95, BUN/Creatinine Ratio 4, Glucose Level 102, Calcium Level 8.3L, Corrected Calcium 9.7, Total Bilirubin 0.6, Aspartate Amino Transf (AST/SGOT) 26, Alanine Aminotransferase (ALT/SGPT) 30, Alkaline Phosphatase 125, Troponin I 0.044H, Total Protein 5.2L, Albumin 2.3L 08/29/21 13:05: Troponin I 0.048H Microbiology 08/24/21 C. difficile GDH Antigen & Toxins - Final, Complete 08/24/21 Stool Culture - Final, Complete 08/22/21 Blood Culture - Final, Complete No growth Assessment/Plan Assessment/Plan Assessment/Plan chronic nausea GERD Debility multiple falls Diarrhea Patient with chronic nausea that she has had for approximately 12 years. She currently having diarrhea which is improving on Questran. In terms of the chronic nausea she says rabeprazole was the only thing that has really made a difference for her with this. We will try to get her to rabeprazole. She did not tolerate the Protonix. If unable to get rabeprazole we will try a different PPI or H2 chacha. Patient in agreement with plan. TANJA SEGAL DO Aug 29, 2021 15:16
[2021-08-29] MEDS ORDERED: NITROGLYCERIN 0.4 MG SL TABS BTL 25'S SL PRN (18:30)
--- NOTE | 2021-08-29 18:33 | Consultation-Cardiology ---
HPI-Cardiology Cardiology Consultation: Date of Consultation 08/29/21 Date of Admission 08/22/21 Attending Physician Rupert White MD Admitting Physician Admitting Physician: Mary Vazquez DO Attending Physician: Mary Vazquez DO Consulting Physician NORA BO JR, MD HPI: Time Seen by a Provider: 18:28 Chief Complaint: REASON FOR CONSULTATION: Chest pain and abnormal troponin level. I had the pleasure of seeing Vanessa on the inpatient rehabilitation unit at [facility] in [place], [place] today. She has no known history of coronary artery disease but did suffer a stroke several years ago and has some mild residual left facial paralysis. She also has cardiac risk factors of hypertens ion and hyperlipidemia. She lives in an apartment by herself. Over the past few weeks to months, she has suffered falls on a few occasions. She states that she has just become weak and fall onto the floor. She denies syncope. Last week she suffered another fall and decided to come to the emergency room for further evaluation. She was admitted to observation and the following day transferred to inpatient rehab. She has been working with rehab without any significant issues. However, this morning while she was taking a shower she developed substernal chest tightness. This resolved with rest. She was also having some nausea. Because of this, the hospitalist ordered a troponin level which was found to be elevated. A cardiology consultation was requested. She states that she does not normally get this sort of chest tightness at home. She denies dyspnea, paroxysmal nocturnal dyspnea, insomnia, palpitations, lightheadedness, or syncope. Since being here in the hospital, she has developed mild bilateral lower extremity edema. Certain portions of this document may have been dictated utilizing voice recognition technology. Inherent to this technology, typographical and grammatical errors may exist. As much as I am diligent to identify and correct these mistakes, some errors may remain in the document. Review of Systems-Cardiology Review of Systems Other comments Review of 10 organ systems is as per the history of present illness, otherwise negative. All Other Systems Reviewed Negative Unless Noted: Yes (Negative excepted noted.) [id number] Hx Patient Social History Marrital Status: single Employed/Student: unemployed Smoking Status: Former Smoker Have you traveled recently?: No Alcohol Use?: No Pt feels they are or have been: No Immunizations Up To Date Date of Pneumonia Vaccine: Dec 06, 2015 Date of Influenza Vaccine: Jan 08, 2017 Past Medical History PMH As described under Assessment. Family Medical History Family Medical History: The patient does not know of any family history of premature coronary artery disease in first-degree relatives. Allergies and Home Medications Allergies Coded Allergies: varenicline (Verified Allergy, Unknown, 08/22/21) Patient Home Medication List Home Medication List Reviewed: Yes Aspirin (Aspirin EC) 81 Mg Tablet.dr, 81 MG PO DAILY, (Reported) Entered as Reported by: MARIA DOLORES LAM on 08/22/211146 Last Action: Continued Atorvastatin Calcium (Atorvastatin Calcium) 40 Mg Tablet, 40 MG PO HS, (Reported) Entered as Reported by: MARIA DOLORES LAM on 08/22/211146 Last Action: Continued Cyclobenzaprine HCl (Cyclobenzaprine HCl) 10 Mg Tablet, 10 MG PO TID PRN for MUSCLE SPASMS, (Reported) Entered as Reported by: BRINDA PEREZ on 01/07/17823 Last Action: Continued Fentanyl (Fentanyl Patch 50 MCG) 50 Mcg/Hour Patch.td72, 50 MCG TD Q72H, (Reported) Entered as Reported by: MARIA DOLORES LAM on 08/22/211146 Last Action: Continued Fluticasone Propionate (Fluticasone Propionate) 50 Mcg/Actuation [place].susp, 1 SPRAY NSEACH DAILY PRN for CONGESTION, (Reported) Entered as Reported by: MARIA DOLORES LAM on 08/22/211146 Last Action: Continued Gabapentin (Gabapentin) 600 Mg Tablet, 600 MG PO BID PRN for PAIN-BREAKTHROUGH, (Reported) Entered as Reported by: BRINDA PEREZ on 01/07/17823 Last Action: Continued Hydrocodone/Acetaminophen (Hydrocodone-Acetamin 5-325 mg) 5 Mg-325 Mg Tablet, 1 EA PO Q4H PRN for PAIN-MODERATE (5-7), (Reported) Entered as Reported by: MARIA DOLORES LAM on 08/22/211146 Last Action: Continued Hydroxyzine HCl (Hydroxyzine HCl) 50 Mg Tablet, 50 MG PO TID PRN for ANXIETY, (Reported) Entered as Reported by: MARIA DOLORES LAM on 08/22/211146 Last Action: Converted Levothyroxine Sodium (Levothyroxine Sodium) 75 Mcg Tablet, 75 MCG PO DAILY, (Reported) Entered as Reported by: MARIA DOLORES LAM on 08/22/211146 Last Action: Continued Losartan Potassium (Losartan Potassium) 100 Mg Tablet, 100 MG PO HS, (Reported) Entered as Reported by: BRINDA PEREZ on 01/07/17823 Last Action: Held Metoprolol Succinate (Metoprolol Succinate) 100 Mg Tab.er.24h, 100 MG PO DAILY, (Reported) Entered as Reported by: BRINDA PEREZ on 01/07/17823 Last Action: Continued Paroxetine HCl (Paroxetine HCl) 10 Mg Tablet, 10 MG PO DAILY, (Reported) Entered as Reported by: MARIA DOLORES LAM on 08/22/211147 Last Action: Continued Paroxetine HCl (Paroxetine HCl) 40 Mg Tablet, 40 MG PO DAILY, (Reported) Entered as Reported by: MARIA DOLORES LAM on 08/22/211147 Last Action: Converted Rabeprazole Sodium (Aciphex) 20 Mg Tablet.dr, 20 MG PO BID, (Reported) Entered as Reported by: BRINDA PEREZ on 01/07/17823 Last Action: Converted Discontinued Medications Amlodipine Besylate (Amlodipine Besylate) 10 Mg Tablet, 10 MG PO DAILY, (Reported) Discontinued Reason: No Longer Taking Entered as Reported by: BRINDA PEREZ on 01/07/17827 Last Action: Discontinued Aspirin (Aspirin EC) 81 Mg Tablet.dr, 81 MG PO DAILY Discontinued Reason: No Longer Taking Prescribed by: LARA ROSALES on 01/15/17901 Last Action: Discontinued Atorvastatin Calcium (Lipitor) 40 Mg Tablet, 40 MG PO HS Discontinued Reason: No Longer Taking Prescribed by: LARA ROSALES on 01/15/17901 Last Action: Discontinued Biotin (Biotin) 1 Mg Tablet, 1 MG PO 1200, (Reported) Discontinued Reason: No Longer Taking Entered as Reported by: BRINDA PEREZ on 01/07/17823 Last Action: Discontinued Buspirone HCl (Buspirone HCl) 5 Mg Tablet, 5 MG PO DAILY, (Reported) Discontinued Reason: No Longer Taking Entered as Reported by: BRINDA PEREZ on 01/07/17823 Last Action: Discontinued Buspirone HCl (Buspirone HCl) 7.5 Mg Tablet, 7.5 MG PO HS, (Reported) Discontinued Reason: No Longer Taking Entered as Reported by: BRINDA PEREZ on 01/07/17823 Last Action: Discontinued Cholecalciferol (Vitamin D3) (Vitamin D3) 1,000 Unit Capsule, 1,000 UNIT PO 1200, (Reported) Discontinued Reason: No Longer Taking Entered as Reported by: BRINDA PEREZ on 01/07/17823 Last Action: Discontinued Citalopram Hydrobromide (Citalopram HBr) 40 Mg Tablet, 40 MG PO DAILY, (Reported) Discontinued Reason: No Longer Taking Entered as Reported by: BRINDA PEREZ on 01/07/17823 Last Action: Discontinued Diazepam (Valium) 2 Mg Tablet, 2 MG PO Q12H PRN for ANXIETY Discontinued Reason: No Longer Taking Prescribed by: LARA ROSALES on 01/15/17901 Last Action: Discontinued Docusate Sodium (Colace) 100 Mg Capsule, 200 MG PO HS, (Reported) Discontinued Reason: No Longer Taking Entered as Reported by: BRINDA PEREZ on 01/07/17823 Last Action: Discontinued Docusate Sodium (Colace) 100 Mg Capsule, 100 MG PO DAILY, (Reported) Discontinued Reason: No Longer Taking Entered as Reported by: BRINDA PEREZ on 01/07/17823 Last Action: Discontinued Fentanyl (Fentanyl Patch 50 MCG) 1 Each Patch.td72, 50 MCG TD Q72H, (Reported) Discontinued Reason: No Longer Taking Entered as Reported by: BRINDA PEREZ on 01/07/17823 Last Action: Discontinued Ferrous Sulfate (Ferrous Sulfate) 325 Mg Tablet, 325 MG PO HS, (Reported) Discontinued Reason: No Longer Taking Entered as Reported by: BRINDA PEREZ on 01/07/17823 Last Action: Discontinued Gabapentin (Gabapentin) 300 Mg Capsule, 300-600 MG PO 1200 PRN for NERVE PAIN, (Reported) Discontinued Reason: No Longer Taking Entered as Reported by: BRINDA PEREZ on 01/07/17827 Last Action: Discontinued Gabapentin (Gabapentin) 300 Mg Capsule, 900 MG PO HS, (Reported) Discontinued Reason: No Longer Taking Entered as Reported by: BRINDA PEREZ on 01/07/17836 Last Action: Discontinued Hydrocodone Bit/Acetaminophen (HYDROcodone/APAP 10/325 TABLET) 1 Each Tablet, 1 TAB PO Q6H PRN for PAIN-MODERATE, (Reported) Discontinued Reason: No Longer Taking Entered as Reported by: BRINDA PEREZ on 01/07/17823 Last Action: Discontinued Levothyroxine Sodium (Synthroid) 75 Mcg Tablet, 75 MCG PO DAILY@0630 Discontinued Reason: No Longer Taking Prescribed by: LARA ROSALES on 01/15/17902 Last Action: Discontinued Loratadine (Loratadine) 10 Mg Tablet, 10 MG PO DAILY, (Reported) Discontinued Reason: No Longer Taking Entered as Reported by: BRINDA PEREZ on 01/07/17823 Last Action: Discontinued Multivitamin (Daily Multiple Vitamin) 1 Each Tablet, 1 TAB PO 1200, (Reported) Discontinued Reason: No Longer Taking Entered as Reported by: BRINDA PEREZ on 01/07/17823 Last Action: Discontinued Exam Vital Signs Vital Signs Date Time Temp Pulse Resp B/P (MAP) Pulse Ox O2 Delivery O2 Flow Rate FiO2 08/29/21 09:00 Nasal Cannula 2.00 08/29/21 07:19 37.0 105 18 123/87 (99) 100 Physical Exam General: Alert. No acute distress. Well nourished and appears stated age. Eye: Extraocular movements are intact. Conjunctivae are clear. There are no xanthelasma. HENT: Normocephalic. Atraumatic. Carotid pulsations 2/2 without bruits. Neck: Jugular venous pressure does not appear elevated. No thyromegaly appreciated. Respiratory: Lungs are clear to auscultation. Respirations are non-labored. Breath sounds are equal. Symmetrical chest wall expansion. Cardiovascular: Normal rate. Regular rhythm. No murmur. No gallop. Point of maximal impulse is not appear displaced. Good pulses equal in all extremities. 1+ bilateral pretibial edema. Gastrointestinal: Soft. Normal bowel sounds. Skin: Skin turgor is normal. There is no pallor. Musculoskeletal: No kyphosis or scoliosis appreciated. Neurologic: Alert and oriented to person, place, time. Cranial nerves 3-12 appear grossly intact. The patient has good motor tone strength in the upper and lower extremities bilaterally. Psychiatric: Cooperative. Appropriate mood & affect. Labs Laboratory Tests Test 08/29/21 10:17 08/29/21 13:05 Range/Units White Blood Count 10.4 4.3-11.0 10^3/uL Red Blood Count 2.86 L 3.80-5.11 10^6/uL Hemoglobin 9.4 L 11.5-16.0 g/dL Hematocrit 29 L 35-52 % Mean Corpuscular Volume 100 H 80-99 fL Mean Corpuscular Hemoglobin 33 25-34 pg Mean Corpuscular Hemoglobin Concent 33 32-36 g/dL Red Cell Distribution Width 18.8 H 10.0-14.5 % Platelet Count 434 H 130-400 10^3/uL Mean Platelet Volume 10.0 9.0-12.2 fL Immature Granulocyte % (Auto) 1 % Neutrophils (%) (Auto) 73 42-75 % Lymphocytes (%) (Auto) 18 12-44 % Monocytes (%) (Auto) 7 0-12 % Eosinophils (%) (Auto) 1 0-10 % Basophils (%) (Auto) 0 0-10 % Neutrophils # (Auto) 7.6 1.8-7.8 10^3/uL Lymphocytes # (Auto) 1.9 1.0-4.0 10^3/uL Monocytes # (Auto) 0.8 0.0-1.0 10^3/uL Eosinophils # (Auto) 0.1 0.0-0.3 10^3/uL Basophils # (Auto) 0.0 0.0-0.1 10^3/uL Immature Granulocyte # (Auto) 0.1 0.0-0.1 10^3/uL Sodium Level 134 L 135-145 MMOL/L Potassium Level 4.6 3.6-5.0 MMOL/L Chloride Level 98 98-107 MMOL/L Carbon Dioxide Level 26 21-32 MMOL/L Anion Gap 10 5-14 MMOL/L Blood Urea Nitrogen 3 L 7-18 MG/DL Creatinine 0.72 0.60-1.30 MG/DL Estimat Glomerular Filtration Rate 95 BUN/Creatinine Ratio 4 Glucose Level 102 70-105 MG/DL Calcium Level 8.3 L 8.5-10.1 MG/DL Corrected Calcium 9.7 8.5-10.1 MG/DL Total Bilirubin 0.6 0.1-1.0 MG/DL Aspartate Amino Transf (AST/SGOT) 26 5-34 U/L Alanine Aminotransferase (ALT/SGPT) 30 0-55 U/L Alkaline Phosphatase 125 40-136 U/L Troponin I 0.044 H 0.048 H <0.028 NG/ML Total Protein 5.2 L 6.4-8.2 GM/DL Albumin 2.3 L 3.2-4.5 GM/DL ECG Impression ECG Comment Electrocardiogram from this morning shows sinus rhythm with low voltage in the precordial leads. Diagnosis/Problems Diagnosis/Problems (1) Chest pain Assessment & Plan: Exact etiology unclear. She does have a borderline elevated troponin level but no evidence of a prior infarct or coronary ischemia on her resting electrocardiogram from this morning. This may be due to gastroesophag eal reflux disease or a musculoskeletal disorder. However, with the troponin elevation, this is concerning for possible coronary ischemia or even a non-ST elevation myocardial infarction. She is on aspirin, beta-chacha and statin medication. I have ordered pantoprazole in the event any of her chest discomfort could be related to esophageal reflux disease. Since her chest disco mfort resolved with rest and has not recurred, I do not see any indication for anticoagulation or nitrates at this point time. I will obtain an echocardiogram in the morning. I asked her to think about whether or not she would want to undergo a stress test. I did let her know that her stress lab is completely full tomorrow and if she did want to stress test, this would have to be done on . She will most likely be here till Saturday anyhow. (2) Troponin level elevated Assessment & Plan: The 8 troponin was marginally elevated and flat. This suggests that this could be due to noncardiac elevation of the troponin unrelated to a myocardial infarction. We will proceed as above. (3) Primary hypertension Assessment & Plan: Blood pressure is reasonably controlled on metoprolol. (4) Mixed hyperlipidemia Assessment & Plan: Continue statin medication. I added a lipid panel to pr evious blood sample. (5) History of cerebrovascular accident Assessment & Plan: She had a head CT prior to her admission in the rehab unit and this did not show any acute intracranial abnormalities. Continue aspirin and statin medication. NORA BO JR, MD Aug 29, 2021 18:33
[2021-08-29 18:36] LABS: TRIGLYCERIDES 87 MG/DL (<150); VLDL CHOLESTEROL 17 MG/DL (5-40)
[2021-08-29 18:41] LABS: CHOLESTEROL 137 MG/DL (< 200)
[2021-08-29 18:42] LABS: HDL CHOLESTEROL 76 MG/DL (40-60)
[2021-08-29] MEDS ORDERED: PANTOPRAZOLE 40 MG (PROTONIX) TAB PO NR (18:45)
[2021-08-29 20:06] VITALS: BP 109/78
[2021-08-29] MEDS: CYCLOBENZAPRINE 10 MG (FLEXERIL) TAB PO PRN (21:58)
--- NOTE | 2021-08-30 06:18 | PM&R Progress Note ---
Subjective HPI/CC On Admission Date Seen by Provider: Aug 30, 2021 Time Seen by Provider: 09:00 Subjective/Events-last exam 08/30/2021: Patient doing well Patient not recovering as quickly as required May need NHP No pain changed 08/29/21: Pt has recurrent nausea I will check labs to make sure it isn't an atypical presentation of an angina Troponin ended up being elevated at 0.44 Dr. Urban was consulted EKG will be obtained Dr. Solo will be consulted too for continued nausea 08/28/21: Patient doing better Less diarrhea Questran improving loose stools Getting stronger slowly 08/27/21: Patient doing well Continued weakness Diarrhea continues so will initiate Questran and check for stool leukocytes No pain is reported 08/26/2021: Patient doing really well No pain is reported other than her chronic pain Nausea is improved No falls Moving around pretty well 08/25/2021: Patient is doing well except nausea today No pain reported other than her usual chronic Garcia out Monitoring closely 08/24/21: Pt is doing really well Discontinue the Unasyn due to blood culture repeat, no growth today Loose bowel movement, sent down the stool studies Discontinue the garcia and hep lock IV fluid today 08/23/21: Pt is doing a little better Keep garcia in for accurate I's and O's Balance is very poor Normal saline at 100 ccs an hour Unison initiated Blood cultures no growth today that I redrew yesterday Review of Systems General: Fatigue Objective Exam Vital Signs Vital Signs Date Time Temp Pulse Resp B/P (MAP) Pulse Ox O2 Delivery O2 Flow Rate FiO2 08/30/21 19:33 37.2 105 16 111/80 (90) 100 Nasal Cannula 2.00 Capillary Refill : General Appearance: No Apparent Distress, WD/WN, Anxious, Chronically ill HEENT: PERRL/EOMI, Normal ENT Inspection, Pharynx Normal Neck: Full Range of Motion, Normal Inspection, Non Tender, Supple, Carotid Bruit Respiratory: Chest Non Tender, Lungs Clear, Normal Breath Sounds, No Accessory Muscle Use, No Respiratory Distress, Decreased Breath Sounds Cardiovascular: Regular Rate, Rhythm, No Edema, No Gallop, No JVD, No Murmur, Normal Peripheral Pulses Gastrointestinal: Normal Bowel Sounds, No Organomegaly, No Pulsatile Mass, Non Tender, Soft Back: Normal Inspection, No CVA Tenderness, No Vertebral Tenderness Extremity: Normal Capillary Refill, Normal Inspection, Normal Range of Motion, Non Tender, No Calf Tenderness, No Pedal Edema Neurologic/Psychiatric: Alert, Oriented x3, field case manager II-XII Norm as Tested, Abnormal Gait, Depressed Affect, Motor Weakness (generalized 3/5) Skin: Normal Color, Warm/Dry, Other (pressure ulcer left heel) Lymphatic: No Adenopathy Results/Procedures Lab Patient resulted labs reviewed. FIM Transfers Therapy Code Descriptions/Definitions Functional [place] Measure: 0=Not Assessed/NA 4=Minimal Assistance 1=Total Assistance 5=Supervision or Setup 2=Maximal Assistance 6=Modified [place] 3=Moderate Assistance 7=Complete IndependenceSCALE: Activities may be completed with or without assistive devices. 4-Hlshvhvchx-bshppfl completes the activity by him/herself with no assistance from a helper. 5-Set-up or Clean-up Assistance-helper sets up or cleans up; patient completes activity. [place] assists only prior to or following the activity. 4-Supervision or Touching Assistance-helper provides verbal cues and/or touching/steadying and/or contact guard assistance as patient completes activ ity. Assistance may be provided throughout the activity or intermittently. 3-Partial/Moderate Assistance-helper does LESS THAN HALF the effort. [place] lifts, holds or supports trunk or limbs, but provides less than half the effort. 2-Substantial/Maximal Assistance-helper does MORE THAN HALF the effort. [place] lifts or holds trunk or limbs and provides more than half the effort. 2-Ttzlyjime-ijrzxc does ALL the effort. Patient does none of the effort to complete the activity. Or, the assistance of 2 or more helpers is required for the patient to complete the activity. If activity was not attempted, code reason: 7-Patient Refused. 9-Not Applicable-not attempted and the patient did not perform the activity before the current illness, exacerbation or injury. 10-Not Attempted due to Environmental Limitations-(lack of equipment, weather restraints, etc.). 88-Not Attempted due to Medical Conditions or Safety Concerns. Roll Left to Right (QC): 6 Sit to Lying (QC): 5 Sit to Stand (QC): 5 Chair/Rix-yg-Lqhde Xfer(QC): 6 Car Transfer (QC): 3 Gait Training Does the Patient Walk?: Yes Distance: 15' Walk 10 feet (QC): 5 Walk 50 ft with 2 Turns(QC): 4 Walk 150 ft (QC): 4 Walking 10ft/uneven surface-QC: 88 Gait Persons Needed: 1 Gait Assistive Device: FWW Wheelchair Training Does the Pt Use a Wheelchair?: Yes Wheel 50 ft with 2 turns (QC): 3 Wheel 150 ft (QC): 88 Type of Wheelchair: Manual Stair Training 1 Step (curb) (QC): 88 4 Steps (QC): 88 12 Steps (QC): 88 Balance Picking up an Object (QC): 88 ADL-Treatment Eating (QC): 6 Oral Hygiene (QC): 4 (SBA for standing balance) Bathing Location: L Arm, R Arm, L Upper Leg, R Upper Leg, L Lower Leg (including foot), R Lower Leg (including foot), Chest, Abdomen Shower/Bathe Self (QC): 4 (SBA for balance) Upper Body Dressing (QC): 5 Lower Body Dressing (QC): 3 (Min A overall. Pt required assistance to thread L foot through briefs. ) On/Off Footwear (QC): 4 (SBA for balance) Toileting Hygiene (QC): 3 (Min A for balance, pt able to perform pericare and clothing management.) Assessment/Plan Assessment and Plan Assess & Plan/Chief Complaint Assessment: Debility Dehydration Diarrhea Bacteremia placed on Unasyn now disproved so DC abx Chronic pain on Fentanyl patch and Hydrocodone Multiple falls Left heel ulcer pressure type present prior to admit Bedridden h/o Left lacunar cerebellar infarct with gait imbalance and dyscoordination on the left 2016 HTN controlled Hypothyroidosm on replacement Post thoracotomy pain syndrome on pain meds Mild anemia O2 dependence s/p thoracotomy Chronic nausea Plan: Home meds IVF Unasyn Repeat BCx PT OT O2 08/23: Stool studies IVF Unasyn Monitor closely 08/24/21: Monitor closely DC IVF Garcia DC 08/25: Monitor nausea Supportive care 08/26/2021: Supportive care Increase oral fluids Chronic pain management 08/27/21: Questran 3 times daily Supportive care 08/28/21: Questran PT OT 08/29/21: Dr Urban consult Dr Solo consult EKG 08/30/2021: Monitor closely May need NHP (1) Chest pain Assessment & Plan: Exact etiology unclear. She does have a borderline elevated troponin level but no evidence of a prior infarct or coronary ischemia on her resting electrocardiogram from this morning. This may be due to gastroesophageal reflux disease or a musculoskeletal disorder. However, with the troponin elevation, this is concerning for possible coronary ischemia or even a non-ST elevation myocardial infarction. She is on aspirin, beta-chacha and statin medication. I have ordered pantoprazole in the event any of her chest discomfort could be related to esophageal reflux disease. Since her chest discomfort resolved with rest and has not recurred, I do not see any indication for anticoagulation or nitrates at this point time. I will obtain an echocardiogram in the morning. I asked her to think about whether or not she would want to undergo a stress test. I did let her know that her stress lab is completely full tomorrow and if she did want to stress test, this would have to be done on . She will most likely be here till Saturday anyhow. (2) Troponin level elevated Assessment & Plan: The 8 troponin was marginally elevated and flat. This suggests that this could be due to noncardiac elevation of the troponin unrelated to a myocardial infarction. We will proceed as above. (3) Primary hypertension Assessment & Plan: Blood pressure is reasonably controlled on metoprolol. (4) Mixed hyperlipidemia Assessment & Plan: Continue statin medication. I added a lipid panel to previous blood sample. (5) History of cerebrovascular accident Assessment & Plan: She had a head CT prior to her admission in the rehab unit and this did not show any acute intracranial abnormalities. Continue aspirin and statin medication. MECHELLE FOY DO Aug 30, 2021 06:18
[2021-08-30] MEDS: LEVOTHYROXINE 75 MCG (LEVOTHROID) TABLET PO SCH (06:44)
[2021-08-30 07:55] VITALS: BP 132/91
[2021-08-30] MEDS: DOCUSATE SODIUM 100 MG (COLACE) CAP PO SCH ×3 (08:57→21:08)
[2021-08-30] MEDS: PANTOPRAZOLE 40 MG (PROTONIX) TAB PO SCH (08:58)
[2021-08-30] MEDS: PARoxetine 10 MG (PAXIL) TAB PO SCH (08:58)
[2021-08-30] MEDS: ASPIRIN E.C. 81 MG (ECOTRIN) TAB PO SCH (08:58)
[2021-08-30] MEDS: PARoxetine 20 MG (PAXIL) TAB PO SCH (08:58)
[2021-08-30] MEDS: fentaNYL PATCH 50 MCG (DURAGESIC) TD SCH (08:59)
[2021-08-30] MEDS: FENTANYL PATCH REMOVAL TP SCH (08:59)
[2021-08-30] MEDS ORDERED: RABEPRAZOLE 20 MG PO SCH (09:00)
[2021-08-30] MEDS: HYPOCHLOROUS ACID/NaCl (VASHE) 250 ML IR SCH ×2 (09:00→21:20)
[2021-08-30] MEDS: COLLAGENASE 30 GM (SANTYL) TUBE TP SCH ×2 (09:00→21:52)
[2021-08-30] MEDS: CHOLESTYRAMINE 4 GM (QUESTRAN LITE, PREVALITE) PKT PO SCH ×5 (09:02→21:00)
[2021-08-30] MEDS: polyethylene glycoL POWDER 17 GM (MIRALAX) PACK PO SCH ×2 (09:02→21:00)
[2021-08-30] MEDS: SENNA W/DOCUSATE (SENOKOT S) TABLET PO SCH ×2 (09:02→21:00)
[2021-08-30] MEDS: SILVER SULFADIAZINE 400 GM CREAM TOP SCH ×2 (09:04→21:52)
[2021-08-30] MEDS: KCL 20 MEQ TAB (K-DUR) PO SCH ×2 (09:18→18:28)
--- NOTE | 2021-08-30 10:00 | Occupational Ther Daily Note ---
OT Current Status-Daily Note Subjective Pt reclining in bed eating breakfast prior to OT tx. Pt agreeable to tx, but c/o of nausea throughout session. Mental Status/Objective Patient Orientation: Person, Place, Situation Attachments: Oxygen (2L) ADL-Treatment Therapy Code Descriptions/Definitions Functional [place] Measure: 0=Not Assessed/NA 4=Minimal Assistance 1=Total Assistance 5=Supervision or Setup 2=Maximal Assistance 6=Modified [place] 3=Moderate Assistance 7=Complete IndependenceSCALE: Activities may be completed with or without assistive devices. 7-Ttmyngmtzk-giitzrz completes the activity by him/herself with no assistance from a helper. 5-Set-up or Clean-up Assistance-helper sets up or cleans up; patient completes activity. [place] assists only prior to or following the activity. 4-Supervision or Touching Assistance-helper provides verbal cues and/or touching/steadying and/or contact guard assistance as patient completes activity. Assistance may be provided throughout the activity or intermittently. 3-Partial/Moderate Assistance-helper does LESS THAN HALF the effort. [place] lifts, holds or supports trunk or limbs, but provides less than half the effort. 2-Substantial/Maximal Assistance-helper does MORE THAN HALF the effort. [place] lifts or holds trunk or limbs and provides more than half the effort. 5-Feqxwxzfh-xgkmfh does ALL the effort. Patient does none of the effort to complete the activity. Or, the assistance of 2 or more helpers is required for the patient to complete the activity. If activity was not attempted, code reason: 7-Patient Refused. 9-Not Applicable-not attempted and the patient did not perform the activity before the current illness, exacerbation or injury. 10-Not Attempted due to Environmental Limitations-(lack of equipment, weather restraints, etc.). 88-Not Attempted due to Medical Conditions or Safety Concerns. Eating (QC): 6 Oral Hygiene (QC): 4 (SBA for standing balance) Lower Body Dressing (QC): 4 (SBA changing brief) Toileting Hygiene (QC): 4 (SBA for seated balance when leaning forward to reach brief) Toilet Transfer (QC): 4 (SBA) Other Treatment Pt transferred from the bed to the bathroom with FWW to complete oral hygiene, S BA. Pt returned to w/c for nurse to tend to and dress wounds, OT assisted pt in positioning and standing during dressing change. Pt attempted to push w/c to therapy gym but had trouble steering and navigating hallways, so she decided to walk to the gym using her FWW, SBA, w/c follow. Pt required 1 seated RB and max encouragement to finish walking to the gym. Pt completed 15min seated on arm bike (~20 morfin resistance), ~5 RBs, max encouragement to finish time on bike. Pt requested to use bathroom, so she was pushed back to room in w/c. Pt completed toileting and walked back to recliner with FWW, SBA. While seated in recliner, pt participated in functional activity that focused on increasing BUE strength and endurance. Pt completed one pattern with rubber bands before staff from [facility] came to complete assessment for admission. Pt transferred from recliner to bed, no FWW, SBA. Post tx, pt left in bed with call light in reach and all needs met. Education OT Patient Education: Correct positioning, Energy conservation, Exercise program, Modified ADL techniques, Progress toward Goal/Update tx plan, Purpose of tx/functional activities, Rehab process, Transfer techniques, W/C management Teaching Recipient: Patient Teaching Methods: Discussion Response to Teaching: Verbalize Understanding, Return Demonstration, Reinforcement Needed OT Short Term Goals Short Term Goals Time Frame: Sep 04, 2021 Toileting hygiene: 4 Shower/bathe self: 4 Lower body dressin Putting on/taking off footwear: 4 OT Surveillance Sensor Officer Goals Jail Goals Time Frame: Sep 15, 2021 Eating (QC): 6 Oral Hygiene (QC): 6 Toileting Hygiene (QC): 6 Shower/Bathe Self (QC): 6 Upper Body Dressing (QC): 6 Lower Body Dressing (QC): 6 On/Off Footwear (QC): 6 Additional Goals: 1-Demonstrate ADL Tasks, 2-Verbalize Understanding, 3- ImproveStrength/Bright 1=Demonstrate adherence to instructed precautions during ADL tasks. 2=Patient will verbalize/demonstrate understanding of assistive devices/m odifications for ADL. 3=Patient will improve strength/tolerance for activity to enable patient to perform ADL's. OT Education/Plan Problem List/Assessment Assessment: Decreased Activ Tolerance, Decreased UE Strength, Impaired Funct Balance, Impaired I ADL's, Impaired Self-Care Skills Discharge Recommendations Plan/Recommendations: Continue POC Treatment Plan/Plan of Care Patient would benefit from OT for education, treatment and training to promote independence in ADL's, mobility, safety and/or upper extremity function for ADL's. Plan of Care: ADL Retraining, Functional Mobility, Group Exercise/Act as Ind, UE Funct Exercise/Act Treatment Duration: Sep 15, 2021 Frequency: At least 5 of 7 days/Wk (IRF) Estimated Hrs Per Day: 1.5 hours per day Rehab Potential: Fair Time/GCodes Start Time: 09:00 Stop Time: 10:30 Total Time Billed (hr/min): 90 Billed Treatment Time 1, ADL 4 (60'), Ex (15'), FA (15') MOODY BHATT OT Aug 30, 2021 10:00
--- NOTE | 2021-08-30 10:37 | Progress Note - Surgery ---
Subjective Date Seen by a Provider: Aug 30, 2021 Time Seen by a Provider: 10:35 Subjective/Events-last exam Feeling better today. Nausea improved. Sore from PT. Tolerating diet. Denies n/v fever sweats chills shortness of breath or chest pain at this time. Objective Exam Vital Signs Date Time Temp Pulse Resp B/P (MAP) Pulse Ox O2 Delivery O2 Flow Rate FiO2 08/30/21 09:44 Nasal Cannula 2.00 08/30/21 08:05 Nasal Cannula 2.00 08/30/21 07:55 36.6 106 14 132/91 (105) 100 Nasal Cannula 2.00 08/29/21 21:00 Nasal Cannula 2.00 08/29/21 20:06 36.2 98 18 109/78 (88) 100 Nasal Cannula 2.00 Capillary Refill : General Appearance: No Apparent Distress, WD/WN, Anxious, Chronically ill HEENT: PERRL/EOMI, Normal ENT Inspection, Pharynx Normal Neck: Full Range of Motion, Normal Inspection, Non Tender Respiratory: Chest Non Tender, No Accessory Muscle Use, No Respiratory Distress Cardiovascular: Regular Rate, Rhythm, No JVD, Normal Peripheral Pulses Gastrointestinal: non tender, soft Extremity: Normal Capillary Refill, Normal Inspection, Normal Range of Motion, Non Tender, No Calf Tenderness, No Pedal Edema Neurologic/Psychiatric: Alert, Oriented x3, director of group sales II-XII Norm as Tested, Abnormal Gait, Depressed Affect, Motor Weakness (generalized 3/5) Skin: Normal Color, Warm/Dry, Other (pressure ulcer left heel) Lymphatic: No Adenopathy Results Lab Laboratory Tests 08/29/21 13:05: Troponin I 0.048H Microbiology 08/24/21 C. difficile GDH Antigen & Toxins - Final, Complete 08/24/21 Stool Culture - Final, Complete 08/22/21 Blood Culture - Final, Complete No growth Assessment/Plan Assessment/Plan Assessment/Plan chronic nausea GERD Debility multiple falls Diarrhea Patient with chronic nausea that she has had for approximately 12 years. In terms of the chronic nausea she says rabeprazole was the only thing that has really made a difference for her with this. We will try to get her to rabeprazole unable to do so yet. She did not tolerate the Protonix. If unable to get rabeprazole we will try a different PPI or H2 chacha. She is going to try and have family bring it as well. Patient in agreement with plan. TANJA ESGAL DO Aug 30, 2021 10:37
[2021-08-30] MEDS: HYDROcodone/APAP 5 MG/325 MG (LORTAB) TAB PO PRN ×2 (11:39→21:09)
--- NOTE | 2021-08-30 12:10 | Physical Therapy Daily Note ---
PT Daily Note-Current Subjective Pt laying Supine in bed upon arrival. Pt agrees to PT after discussing change of d/c on Saturday from [facility] to [facility]. Pain Numeric Pain Scale: 5-Moderate Pain Location Body Site: Head Pain Description: Ache Mental Status Patient Orientation: Person, Place, Situation Attachments: Oxygen Transfers SCALE: Activities may be completed with or without assistive devices. 3-Yrclofzegd-hnalumk completes the activity by him/herself with no assistance from a helper. 5-Set-up or Clean-up Assistance-helper sets up or cleans up; patient completes activity. [place] assists only prior to or following the activity. 4-Supervision or Touching Assistance-helper provides verbal cues and/or touching/steadying and/or contact guard assistance as patient completes activity. Assistance may be provided throughout the activity or intermittently. 3-Partial/Moderate Assistance-helper does LESS THAN HALF the effort. [place] lifts, holds or supports trunk or limbs, but provides less than half the effort. 2-Substantial/Maximal Assistance-helper does MORE THAN HALF the effort. [place] lifts or holds trunk or limbs and provides more than half the effort. 2-Faibdykcc-uocner does ALL the effort. Patient does none of the effort to complete the activity. Or, the assistance of 2 or more helpers is required for the patient to complete the activity. If activity was not attempted, code reason: 7-Patient Refused. 9-Not Applicable-not attempted and the patient did not perform the activity before the current illness, exacerbation or injury. 10-Not Attempted due to Environmental Limitations-(lack of equipment, weather restraints, etc.). 88-Not Attempted due to Medical Conditions or Safety Concerns. Sit to Stand (QC): 5 Toilet Transfer (QC): 5 Weight Bearing Full Weight Bearing Full Weight Bearing Gait Training Does the Patient Walk?: Yes Distance: 75' Walk 10 feet (QC): 4 Walk 50 ft with 2 Turns(QC): 4 Gait Persons Needed: 1 Gait Assistive Device: FWW Exercises Supine Ex: Ankle pumps, Quad Set, Glut sets, Heel Slides, Hip abd/add Supine Reps: 15 Seated Therapy Exercises: Ankle pumps, Long arc quads, Hip flexion, Hip abd/add Seated Reps: 15 Treatments After discussion of CUSTODIAL vs SNF for d/c, pt TF to standing. Pt amb. in hallway before needing RB. Pt asks to return to room to rest before lunch and stretch stomach out. TF back to Supine in bed, declines sitting in recliner. Assessment Current Status: Fair Progress Pt self limits and needs meds given for headache and wound site pain. PT Short Term Goals Short Term Goals Time Frame: Aug 29, 2021 Roll Left & Right: 6 Sit to lyin Lying to sitting on side of be: 4 Sit to stand: 4 Walk 10 feet: [address] Go[address] Manager [address] Goals PT Manager Highway Goals Time Frame: Sep 12, 2021 Roll Left & Right (QC): 6 Sit to Lying (QC): 6 Lying-Sitting on Side/Bed(QC): 6 Sit to Stand (QC): 4 (SBA) Chair/Ppy-to-Uvyai Xfer(QC): 4 (SBA) Toilet Transfer (QC): 4 (SBA) Car Transfer (QC): 4 (SBA) Does the Patient Walk: Yes Walk 10 feet (QC): 4 (SBA) Walk 50ft with 2 Turns (QC): 4 (SBA) Walk 150 ft (QC): 88 Walking 10ft on Uneven Surface: 4 (SBA) 1 Step (curb) (QC): 4 (SBA) 4 Steps (QC): 88 12 Steps (QC): 88 Picking up an Object (QC): 4 (SBA using inserter promotional item) Wheel 50 feet with 2 turns (QC: 9 Wheel 150 feet: 9 PT Plan Problem List Problem List: Activity Tolerance, Gait Treatment/Plan Treatment Plan: Continue Plan of Care Treatment Plan: Bed Mobility, Education, Functional Activity Bright, Functional Strength, Group Therapy, Gait, Safety, Therapeutic Exercise, Transfers Treatment Duration: Sep 12, 2021 Frequency: At least 5 of 7 days/Wk (IRF) Estimated Hrs Per Day: 1.5 hours per day Patient and/or Family Agrees t: Yes Safety Risks/Education Patient Education: Gait Training, Transfer Techniques, Correct Positioning, Safety Issues Teaching Recipient: Patient Teaching Methods: Discussion Response to Teaching: Verbalize Understanding Time/GCodes Time In: 1100 Time Out: 1200 Total Billed Treatment Time: 60 Total Billed Treatment 1, EX x2 (30m) & FA x2 (30m) MARCY CORTES [employer] AGENT Aug 30, 2021 12:10
--- NOTE | 2021-08-30 12:38 | Cardiology Progress Note ---
Progress Note-Cardiology Events since last exam Date Seen by Provider: Aug 30, 2021 Time Seen by Provider: 12:36 Events since last exam I am following her due to possible NSTEMI. She still gets some chest tightness at times. This gets worse with exertion and makes her feel a little short of breath. She was getting this at home prior to admission. 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 She denies palpitations, syncope or ankle edema. She would like to hold off on having a stress test. Certain portions of this document may have been dictated utilizing voice recognition technology. Inherent to this technology, typographical and gramma tical errors may exist. As much as I am diligent to identify and correct these mistakes, some errors may remain in the document. Vitals Last set of Vitals Signs Vital Signs 08/30/21 08/30/21 07:55 09:44 Temp 36.6 Pulse 106 Resp 14 B/P (MAP) 132/91 (105) Pulse Ox 100 O2 Delivery Nasal Cannula O2 Flow Rate 2.00 Exam Vital Signs Vital Signs Date Time Temp Pulse Resp B/P (MAP) Pulse Ox O2 Delivery O2 Flow Rate FiO2 08/30/21 09:44 Nasal Cannula 2.00 08/30/21 07:55 36.6 106 14 132/91 (105) 100 Physical Exam General: Alert. No acute distress. Eye: No xanthelasma. HENT: Normocephalic. Neck: Jugular venous pressure does not appear elevated. Respiratory: Lungs are clear to auscultation. Respirations are non-labored. Breath sounds are equal. Symmetrical chest wall expansion. Cardiovascular: Normal rate. Regular rhythm. No murmur. No gallop. No edema. Gastrointestinal: Soft. Normal bowel sounds. Skin: Warm. Dry. Neurologic: Alert and oriented to person, place, time. Cranial nerves 3-11 grossly intact. Psychiatric: Cooperative. Appropriate mood & affect. Labs Diagnosis/Problems Diagnosis/Problems (1) Chest pain Assessment & Plan: Exact etiology unclear. She does have a borderline elevated troponin level but no evidence of a prior infarct or coronary ischemia on her resting electrocardiogram from 08/29. This may be due to gastroesophageal reflux disease or a musculoskeletal disorder. However, with the troponin elevation, this is concerning for possible coronary ischemia or even a non-ST elevation myocardial infarction. She is on aspirin, beta-chacha and statin medication. I have ordered pantoprazole in the event any of her chest discomfort could be related to esophageal reflux disease. She does not want to undergo a stress test. 08/29 I told her I would do an echocardiogram but when the cardiopulmonary technician and eeg tech arrived she told him she did not want that test either because whenever she has had this in the past, the technicians have not been able to obtain good images. She feels like this chest pain pain has been going on for 11 years and is rel ated to her previous lung resection. I did suggest that we add long-acting nitrates and then I can plan to see her in the office after discharge and discuss further whether or not she wants an ischemic evaluation. I have placed an order for the staff to get her a follow-up appointment with me in the office in 1 month. We will see her as needed for as long as she remains in the h ospital. (2) Troponin level elevated Assessment & Plan: The troponin was marginally elevated and flat. This suggests that this could be due to noncardiac elevation of the troponin unrelated to a myocardial infarction. We will proceed as above. (3) Primary hypertension Assessment & Plan: Blood pressure is reasonably controlled on metoprolol. (4) Mixed hyperlipidemia Assessment & Plan: Continue statin medication. Her LDL level is under good control as noted on her blood work from this admission. (5) History of cerebrovascular accident Assessment & Plan: She had a head CT prior to her admission in the rehab unit and this did not show any acute intracranial abnormalities. Continue aspirin and statin medication. NORA BO JR, MD Aug 30, 2021 12:38
[2021-08-30] MEDS ORDERED: ISOSORBIDE MONONITRATE 30 MG (IMDUR) TAB PO NR (12:45)
[2021-08-30] MEDS: ENOXAPARIN 40 MG/0.4 ML (LOVENOX) SYR SC SCH (13:09)
--- NOTE | 2021-08-30 15:05 | Physical Therapy Daily Note ---
PT Daily Note-Current Subjective Pt in BR upon arrival. Pt agrees to PT. Mental Status Patient Orientation: Person, Place, Situation Attachments: Oxygen Transfers SCALE: Activities may be completed with or without assistive devices. 5-Qpkyjotuzu-sejdeqd completes the activity by him/herself with no assistance from a helper. 5-Set-up or Clean-up Assistance-helper sets up or cleans up; patient completes activity. [place] assists only prior to or following the activity. 4-Supervision or Touching Assistance-helper provides verbal cues and/or touching/steadying and/or contact guard assistance as patient completes activity. Assistance may be provided throughout the activity or intermittently. 3-Partial/Moderate Assistance-helper does LESS THAN HALF the effort. [place] lifts, holds or supports trunk or limbs, but provides less than half the effort. 2-Substantial/Maximal Assistance-helper does MORE THAN HALF the effort. [place] lifts or holds trunk or limbs and provides more than half the effort. 6-Kzoknpsfb-ojxksr does ALL the effort. Patient does none of the effort to complete the activity. Or, the assistance of 2 or more helpers is required for the patient to complete the activity. If activity was not attempted, code reason: 7-Patient Refused. 9-Not Applicable-not attempted and the patient did not perform the activity before the current illness, exacerbation or injury. 10-Not Attempted due to Environmental Limitations-(lack of equipment, weather restraints, etc.). 88-Not Attempted due to Medical Conditions or Safety Concerns. Sit to Stand (QC): 5 Toilet Transfer (QC): 5 Weight Bearing Full Weight Bearing Full Weight Bearing Gait Training Does the Patient Walk?: Yes Distance: 75' x2 Walk 10 feet (QC): 4 Walk 50 ft with 2 Turns(QC): 4 Walk 150 ft (QC): 4 Gait Persons Needed: 1 Gait Assistive Device: FWW Treatments After finishing toileting, pt amb. in hallway. Pt takes RB as needed then returns to room to rest in bed. Pt declines using recliner. All needs met, call light in hand. Assessment Current Status: Fair Progress Pt fatigues easily, frequent RB needed. PT Short Term Goals Short Term Goals Time Frame: Aug 29, 2021 Roll Left & Right: 6 Sit to lyin Lying to sitting on side of be: 4 Sit to stand: 4 Walk 10 feet: 4 PT Retirement Goals Retirement Goals PT Retirement Goals Time Frame: Sep 12, 2021 Roll Left & Right (QC): 6 Sit to Lying (QC): 6 Lying-Sitting on Side/Bed(QC): 6 Sit to Stand (QC): 4 (SBA) Chair/Ftf-jj-Hxjzl Xfer(QC): 4 (SBA) Toilet Transfer (QC): 4 (SBA) Car Transfer (QC): 4 (SBA) Does the Patient Walk: Yes Walk 10 feet (QC): 4 (SBA) Walk 50ft with 2 Turns (QC): 4 (SBA) Walk 150 ft (QC): 88 Walking 10ft on Uneven Surface: 4 (SBA) 1 Step (curb) (QC): 4 (SBA) 4 Steps (QC): 88 12 Steps (QC): 88 Picking up an Object (QC): 4 (SBA using power nut runner operator) Wheel 50 feet with 2 turns (QC: 9 Wheel 150 feet: 9 PT Plan Problem List Problem List: Activity Tolerance, Functional Strength, Gait Treatment/Plan Treatment Plan: Continue Plan of Care Treatment Plan: Bed Mobility, Education, Functional Activity Bright, Functional Strength, Group Therapy, Gait, Safety, Therapeutic Exercise, Transfers Treatment Duration: Sep 12, 2021 Frequency: At least 5 of 7 days/Wk (IRF) Estimated Hrs Per Day: 1.5 hours per day Patient and/or Family Agrees t: Yes Safety Risks/Education Patient Education: Gait Training, Correct Positioning Teaching Recipient: Patient Teaching Methods: Discussion Response to Teaching: Verbalize Understanding Time/GCodes Time In: 1300 Time Out: 1330 Total Billed Treatment Time: 30 Total Billed Treatment 1, FA (10m) & GT (20m) MARCY CORTES [employer] CAP[employer] Aug 30, 2021 15:05
[2021-08-30 19:33] VITALS: BP 111/80
[2021-08-30] MEDS: CYCLOBENZAPRINE 10 MG (FLEXERIL) TAB PO PRN (21:09)
--- NOTE | 2021-08-31 06:09 | PM&R Progress Note ---
Subjective HPI/CC On Admission Date Seen by Provider: Aug 31, 2021 Time Seen by Provider: 10:30 Subjective/Events-last exam 08/31/2021: Patient declined EST and ECHO Discussed end of life care and consulted pastoral care for advance directive and she was not interested in any discussion NHP tomorrow Poor prognosis Apathy noted 08/30/2021: Patient doing well Patient not recovering as quickly as required May need NHP No pain changed 08/29/21: Pt has recurrent nausea I will check labs to make sure it isn't an atypical presentation of an angina Troponin ended up being elevated at 0.44 Dr. Urban was consulted EKG will be obtained Dr. Solo will be consulted too for continued nausea 08/28/21: Patient doing better Less diarrhea Questran improving loose stools Getting stronger slowly 08/27/21: Patient doing well Continued weakness Diarrhea continues so will initiate Questran and check for stool leukocytes No pain is reported 08/26/2021: Patient doing really well No pain is reported other than her chronic pain Nausea is improved No falls Moving around pretty well 08/25/2021: Patient is doing well except nausea today No pain reported other than her usual chronic Garcia out Monitoring closely 08/24/21: Pt is doing really well Discontinue the Unasyn due to blood culture repeat, no growth today Loose bowel movement, sent down the stool studies Discontinue the garcia and hep lock IV fluid today 08/23/21: Pt is doing a little better Keep garcia in for accurate I's and O's Balance is very poor Normal saline at 100 ccs an hour Unison initiated Blood cultures no growth today that I redrew yesterday Review of Systems General: Fatigue, Malaise Objective Exam Vital Signs Vital Signs Date Time Temp Pulse Resp B/P (MAP) Pulse Ox O2 Delivery O2 Flow Rate FiO2 08/31/21 21:00 Nasal Cannula 2.00 08/31/21 19:55 36.6 108 18 104/69 (81) 99 Capillary Refill : General Appearance: No Apparent Distress, WD/WN, Anxious, Chronically ill HEENT: PERRL/EOMI, Normal ENT Inspection, Pharynx Normal Neck: Full Range of Motion, Normal Inspection, Non Tender, Supple, Carotid Bruit Respiratory: Chest Non Tender, Lungs Clear, Normal Breath Sounds, No Accessory Muscle Use, No Respiratory Distress, Decreased Breath Sounds Cardiovascular: Regular Rate, Rhythm, No Edema, No Gallop, No JVD, No Murmur, Normal Peripheral Pulses Gastrointestinal: Normal Bowel Sounds, No Organomegaly, No Pulsatile Mass, Non Tender, Soft Back: Normal Inspection, No CVA Tenderness, No Vertebral Tenderness Extremity: Normal Capillary Refill, Normal Inspection, Normal Range of Motion, Non Tender, No Calf Tenderness, No Pedal Edema Neurologic/Psychiatric: Alert, Oriented x3, nutritional yeast supervisor II-XII Norm as Tested, Abnormal Gait, Depressed Affect, Motor Weakness (generalized 3/5) Skin: Normal Color, Warm/Dry, Other (pressure ulcer left heel) Lymphatic: No Adenopathy Results/Procedures Lab Patient resulted labs reviewed. FIM Transfers Therapy Code Descriptions/Definitions Functional [place] Measure: 0=Not Assessed/NA 4=Minimal Assistance 1=Total Assistance 5=Supervision or Setup 2=Maximal Assistance 6=Modified [place] 3=Moderate Assistance 7=Complete IndependenceSCALE: Activities may be completed with or without assistive devices. 3-Wjkruakpqs-igienel completes the activity by him/herself with no assistance from a helper. 5-Set-up or Clean-up Assistance-helper sets up or cleans up; patient completes activity. [place] assists only prior to or following the activity. 4-Supervision or Touching Assistance-helper provides verbal cues and/or touching/steadying and/or contact guard assistance as patient completes activity. Assistance may be provided throughout the activity or intermittently. 3-Partial/Moderate Assistance-helper does LESS THAN HALF the effort. [place] lifts, holds or supports trunk or limbs, but provides less than half the effort. 2-Substantial/Maximal Assistance-helper does MORE THAN HALF the effort. [place] lifts or holds trunk or limbs and provides more than half the effort. 1-Qfxdcfguf-qcrpov does ALL the effort. Patient does none of the effort to complete the activity. Or, the assistance of 2 or more helpers is required for the patient to complete the activity. If activity was not attempted, code reason: 7-Patient Refused. 9-Not Applicable-not attempted and the patient did not perform the activity before the current illness, exacerbation or injury. 10-Not Attempted due to Environmental Limitations-(lack of equipment, weather restraints, etc.). 88-Not Attempted due to Medical Conditions or Safety Concerns. Roll Left to Right (QC): 6 Sit to Lying (QC): 5 Sit to Stand (QC): 5 Chair/Msp-fm-Lfzlx Xfer(QC): 6 Car Transfer (QC): 3 Gait Training Does the Patient Walk?: Yes Distance: 75' x2 Walk 10 feet (QC): 4 Walk 50 ft with 2 Turns(QC): 4 Walk 150 ft (QC): 4 Walking 10ft/uneven surface-QC: 88 Gait Persons Needed: 1 Gait Assistive Device: FWW Wheelchair Training Does the Pt Use a Wheelchair?: No Wheel 50 ft with 2 turns (QC): 3 Wheel 150 ft (QC): 88 Type of Wheelchair: N/A Stair Training 1 Step (curb) (QC): 88 4 Steps (QC): 88 12 Steps (QC): 88 Balance Picking up an Object (QC): 88 ADL-Treatment Eating (QC): 6 Oral Hygiene (QC): 4 (SBA for standing balance) Bathing Location: L Arm, R Arm, L Upper Leg, R Upper Leg, L Lower Leg (including foot), R Lower Leg (including foot), Chest, Abdomen Shower/Bathe Self (QC): 4 (SBA for balance) Upper Body Dressing (QC): 5 Lower Body Dressing (QC): 4 (SBA changing brief) On/Off Footwear (QC): 4 (SBA for balance) Toileting Hygiene (QC): 4 (SBA for seated balance when leaning forward to reach brief) Toilet Transfer (QC): 4 (SBA) Assessment/Plan Assessment and Plan Assess & Plan/Chief Complaint Assessment: Debility Dehydration Diarrhea Bacteremia placed on Unasyn now disproved so DC abx Chronic pain on Fentanyl patch and Hydrocodone Multiple falls Left heel ulcer pressure type present prior to admit Bedridden h/o Left lacunar cerebellar infarct with gait imbalance and dyscoordination on the left 2017 HTN controlled Hypothyroidosm on replacement Post thoracotomy pain syndrome on pain meds Mild anemia O2 dependence s/p thoracotomy Chronic nausea Plan: Home meds IVF Unasyn Repeat BCx PT OT O2 08/23: Stool studies IVF Unasyn Monitor closely 08/24/21: Monitor closely DC IVF Garcia DC 08/25: Monitor nausea Supportive care 08/26/2021: Supportive care Increase oral fluids Chronic pain management 08/27/21: Questran 3 times daily Supportive care 08/28/21: Questran PT OT 08/29/21: Dr Urban consult Dr Solo consult EKG 08/30/2021: Monitor closely May need NHP 08/31/2021: NHP tomorrow Declined end of life discussion for advance directive and living will Poor prognosis (1) Chest pain Assessment & Plan: Exact etiology unclear. She does have a borderline elevated troponin level but no evidence of a prior infarct or coronary ischemia on her resting electrocardiogram from 08/29. This may be due to gastroesophageal reflux disease or a musculoskeletal disorder. However, with the troponin elevation, this is concerning for possible coronary ischemia or even a non-ST elevation myocardial infarction. She is on aspirin, beta-chacha and statin medication. I have ordered pantoprazole in the event any of her chest discomfort could be related to esophageal reflux disease. She does not want to undergo a stress test. 08/29 I told her I would do an echocardiogram but when the wire technician arrived she told him she did not want that test either because whenever she has had this in the past, the technicians have not been able to obtain good images. 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 I did suggest that we add long-acting nitrates and then I can plan to see her in the office after discharge and discuss further whether or not she wants an ischemic evaluation. I have placed an order for the staff to get her a follow-up appointment with me in the office in 1 month. We will see her as needed for as long as she remains in the hospital. (2) Troponin level elevated Assessment & Plan: The troponin was marginally elevated and flat. This suggests that this could be due to noncardiac elevation of the troponin unrelated to a myocardial infarction. We will proceed as above. (3) Primary hypertension Assessment & Plan: Blood pressure is reasonably controlled on metoprolol. (4) Mixed hyperlipidemia Assessment & Plan: Continue statin medication. Her LDL level is under good control as noted on her blood work from this admission. (5) History of cerebrovascular accident Assessment & Plan: She had a head CT prior to her admission in the rehab unit and this did not show any acute intracranial abnormalities. Continue aspirin and statin medication. MECHELLE FOY DO Aug 31, 2021 06:09
[2021-08-31] MEDS: LEVOTHYROXINE 75 MCG (LEVOTHROID) TABLET PO SCH (06:17)
[2021-08-31 07:17] VITALS: BP 122/88
[2021-08-31] MEDS: PANTOPRAZOLE 40 MG (PROTONIX) TAB PO SCH (08:09)
[2021-08-31] MEDS: PARoxetine 20 MG (PAXIL) TAB PO SCH (08:09)
[2021-08-31] MEDS: ASPIRIN E.C. 81 MG (ECOTRIN) TAB PO SCH (08:09)
[2021-08-31] MEDS: ISOSORBIDE MONONITRATE 30 MG (IMDUR) TAB PO SCH (08:09)
[2021-08-31] MEDS: PARoxetine 10 MG (PAXIL) TAB PO SCH (08:09)
[2021-08-31] MEDS: HYPOCHLOROUS ACID/NaCl (VASHE) 250 ML IR SCH ×2 (08:10→21:10)
[2021-08-31] MEDS: COLLAGENASE 30 GM (SANTYL) TUBE TP SCH ×2 (08:10→21:11)
[2021-08-31] MEDS: SILVER SULFADIAZINE 400 GM CREAM TOP SCH ×2 (08:11→21:10)
[2021-08-31] MEDS: DOCUSATE SODIUM 100 MG (COLACE) CAP PO SCH ×2 (08:15→20:00)
[2021-08-31] MEDS: KCL 20 MEQ TAB (K-DUR) PO SCH ×2 (08:15→17:18)
[2021-08-31] MEDS: SENNA W/DOCUSATE (SENOKOT S) TABLET PO SCH ×2 (08:15→20:00)
[2021-08-31] MEDS: polyethylene glycoL POWDER 17 GM (MIRALAX) PACK PO SCH ×2 (08:15→20:00)
[2021-08-31] MEDS: CHOLESTYRAMINE 4 GM (QUESTRAN LITE, PREVALITE) PKT PO SCH ×3 (08:15→20:00)
--- NOTE | 2021-08-31 09:01 | Occupational Ther Daily Note ---
OT Current Status-Daily Note Subjective Pt resting in bed prior to OT tx. Pt agreeable to tx. Pt reports that she is having a bad day and is struggling with leg pain and numbness, says she "could just cry." Pt is eager to "get out of here." Mental Status/Objective Patient Orientation: Person, Place, Situation Attachments: Oxygen (2L via NC) ADL-Treatment Therapy Code Descriptions/Definitions Functional [place] Measure: 0=Not Assessed/NA 4=Minimal Assistance 1=Total Assistance 5=Supervision or Setup 2=Maximal Assistance 6=Modified [place] 3=Moderate Assistance 7=Complete IndependenceSCALE: Activities may be completed with or without assistive devices. 9-Ersyujddvc-wycinlk completes the activity by him/herself with no assistance from a helper. 5-Set-up or Clean-up Assistance-helper sets up or cleans up; patient completes activity. [place] assists only prior to or following the activity. 4-Supervision or Touching Assistance-helper provides verbal cues and/or touching/steadying and/or contact guard assistance as patient completes activity. Assistance may be provided throughout the activity or intermittently. 3-Partial/Moderate Assistance-helper does LESS THAN HALF the effort. [place] lifts, holds or supports trunk or limbs, but provides less than half the effort. 2-Substantial/Maximal Assistance-helper does MORE THAN HALF the effort. [place] lifts or holds trunk or limbs and provides more than half the effort. 1-Ndbljcjqh-vngddc does ALL the effort. Patient does none of the effort to complete the activity. Or, the assistance of 2 or more helpers is required for the patient to complete the activity. If activity was not attempted, code reason: 7-Patient Refused. 9-Not Applicable-not attempted and the patient did not perform the activity before the current illness, exacerbation or injury. 10-Not Attempted due to Environmental Limitations-(lack of equipment, weather restraints, etc.). 88-Not Attempted due to Medical Conditions or Safety Concerns. Eating (QC): 6 Oral Hygiene (QC): 4 (supervision for standing balance) Shower/Bathe Self (QC): 4 (SBA for standing balance when cleaning buttocks/periarea. Pt required min v/c's to take RBs when needed to complete washing full body.) Upper Body Dressing (QC): 5 Lower Body Dressing (QC): 3 (Min A and v/c's to thread legs through brief and pants. ) On/Off Footwear: 5 Toileting Hygiene (QC): 4 (Supervision for balance) Other Treatment Pt transferred supine to seated EOB, SBA. Pt walked to dresser to retrieve clothing items with FWW, supervision. Pt transferred to bathroom to complete showering, dressing, and oral hygiene tasks. Pt needed max encouragement and v/c's to take rest breaks when needed so she could finish tasks, required frequent RBs d/t nausea and SOB. Pt transferred from bathroom to recliner for seated RB with FWW, supervision. Start of OT/PT cotreat. Need for 2 skilled clinicians vs therapy aid d/t patients complex medical needs and to focus on higher level balance tasks. OT focused on BUE placement, sequencing, and functional activity while PT focused on BLE placement, endurance, and mobility. Pt used FWW to perform functional mobility and transfers on way to therapy gym, including car transfer on the way. She required 2 seated rest breaks. Pt participated in standing functional activities at white board, using BUE to reach letters in all planes. Pt completed 12 letters before requesting a seated RB, then completed final 8 letters. Pt then stood at table and completed 1 rubber band design on board, using BUEs, no RBs. End of cotreat. Pt left with PT. Education OT Patient Education: Correct positioning, Energy conservation, Exercise program, Modified ADL techniques, Progress toward Goal/Update tx plan, Purpose of tx/functional activities, Rehab process, Safety issues, Transfer techniques Teaching Recipient: Patient Teaching Methods: Demonstration, Discussion Response to Teaching: Verbalize Understanding, Return Demonstration, Reinforcement Needed OT Short Term Goals Short Term Goals Time Frame: Sep 04, 2021 Toileting hygiene: 4 Shower/bathe self: 4 Lower body dressin Putting on/taking off footwear: 4 OT Store Coordinator Goals Store Coordinator Goals Time Frame: Sep 15, 2021 Eating (QC): 6 (met) Oral Hygiene (QC): 6 (not met) Toileting Hygiene (QC): 6 (not met) Shower/Bathe Self (QC): 6 (not met) Upper Body Dressing (QC): 6 (not met) Lower Body Dressing (QC): 6 (not met) On/Off Footwear (QC): 6 (not met) Additional Goals: 1-Demonstrate ADL Tasks, 2-Verbalize Understanding, 3- ImproveStrength/Bright 1=Demonstrate adherence to instructed precautions during ADL tasks. 2=Patient will verbalize/demonstrate understanding of assistive devices/modifications for ADL. 3=Patient will improve strength/tolerance for activity to enable patient to perform ADL's. OT Education/Plan Problem List/Assessment Assessment: Decreased Activ Tolerance, Decreased UE Strength, Impaired Funct Balance, Impaired I ADL's, Impaired Self-Care Skills Discharge Recommendations Plan/Recommendations: Continue POC Treatment Plan/Plan of Care Patient would benefit from OT for education, treatment and training to promote independence in ADL's, mobility, safety and/or upper extremity function for ADL's. Plan of Care: ADL Retraining, Functional Mobility, Group Exercise/Act as Ind, UE Funct Exercise/Act Treatment Duration: Sep 15, 2021 Frequency: At least 5 of 7 days/Wk (IRF) Estimated Hrs Per Day: 1.5 hours per day Rehab Potential: Fair Time/GCodes Start Time: 08:00 Stop Time: 09:30 Total Time Billed (hr/min): 90 Billed Treatment Time 2900-6374: OT tx. 8093-6941: OT/PT cotreat. 1, ADL 4 (60'), FA 2 (30') MOODY BHATT OT Aug 31, 2021 09:01
--- NOTE | 2021-08-31 09:07 | Cardiology Progress Note ---
Progress Note-Cardiology Events since last exam Date Seen by Provider: Aug 31, 2021 Time Seen by Provider: 09:05 Events since last exam I am following her due to possible NSTEMI. She declined a stress test. We had discussed doing an echocardiogram and she agreed but then when the research technician went to do the study`on 08/30, she refused. On 08/30 I started her on isosorbide mononitrate. She still gets some exertional chest tightness associated with shortness of breath. She denies the symptoms at rest. She denies palpitations, syncope, or ankle edema. Certain portions of this document may have been dictated utilizing voice recognition technology. Inherent to this technology, typographical and grammatical errors may exist. As much as I am diligent to identify and correct these mistakes, some errors may remain in the document. Vitals Last set of Vitals Signs Vital Signs 08/31/21 07:17 Temp 36.4 Pulse 110 Resp 18 B/P (MAP) 122/88 (99) Pulse Ox 100 O2 Delivery Nasal Cannula O2 Flow Rate 2.00 Exam Vital Signs Vital Signs Date Time Temp Pulse Resp B/P (MAP) Pulse Ox O2 Delivery O2 Flow Rate FiO2 08/31/21 07:17 36.4 110 18 122/88 (99) 100 Nasal Cannula 2.00 Physical Exam General: Alert. No acute distress. Eye: No xanthelasma. HENT: Normocephalic. Neck: Jugular venous pressure does not appear elevated. Respiratory: Lungs are clear to auscultation. Respirations are non-labored. Breath sounds are equal. Symmetrical chest wall expansion. Cardiovascular: Normal rate. Regular rhythm. No murmur. No gallop. No edema. Gastrointestinal: Soft. Normal bowel sounds. Skin: Warm. Dry. Neurologic: Alert and oriented to person, place, time. Cranial nerves 3-11 grossly intact. Psychiatric: Cooperative. Appropriate mood & affect. Diagnosis/Problems Diagnosis/Problems (1) Chest pain Assessment & Plan: Exact etiology unclear. She does have a borderline elevated troponin level but no evidence of a prior infarct or coronary ischemia on her resting electrocardiogram from 08/29. This may be due to gastroesophageal reflux disease or a musculoskeletal disorder. However, with the troponin elevation, this is concerning for possible coronary ischemia or even a non-ST elevation myocardial infarction. She is on aspirin, beta-chacha, long-acting nitrates and statin medication. I have ordered pantoprazole in the event any of her chest discomfort could be related to esophageal reflux disease. She does not want to undergo a stress test or an echocardiogram. We will see her as needed for as long as she remains in the hospital. I have asked her to see me in the office in 1 month. (2) Troponin level elevated Assessment & Plan: The troponin was marginally elevated and flat. This suggests that this could be due to noncardiac elevation of the troponin unrelated to a myocardial infarction. Alternatively, this could be a possible non-ST elevation myocardial infarction. We will proceed as above. (3) Primary hypertension Assessment & Plan: Blood pressure is reasonably controlled on metoprolol. (4) Mixed hyperlipidemia Assessment & Plan: Continue statin medication. Her LDL level is under good control as noted on her blood work from this admission. (5) History of cerebrovascular accident Assessment & Plan: She had a head CT prior to her admission in the rehab unit and this did not show any acute intracranial abnormalities. Continue aspirin and statin medication. NORA BO JR, MD Aug 31, 2021 09:07
[2021-08-31] MEDS ORDERED: PATIENT MAY USE OWN MED,SINGLE MED PO SCH (10:00)
--- NOTE | 2021-08-31 10:19 | Physical Therapy Daily Note ---
PT Daily Note-Current Subjective Patient in recliner pre tx, agrees to PT, has 3/10 pain in low back. Will be co-treating with OT for part of tx to work on UE activity while working on standing endurance and LE strength, coordinate UE and LE during activity, safety and reduce risk of falls. Appearance Patient in bed post tx with nurse call, phone, tray, all needs met, patient has a headache, nurse notified. Mental Status Patient Orientation: Person, Place, Situation Attachments: Oxygen Transfers SCALE: Activities may be completed with or without assistive devices. 9-Jqxsxfhhzt-xmtyqby completes the activity by him/herself with no assistance from a helper. 5-Set-up or Clean-up Assistance-helper sets up or cleans up; patient completes activity. [place] assists only prior to or following the activity. 4-Supervision or Touching Assistance-helper provides verbal cues and/or touching/steadying and/or contact guard assistance as patient completes activity. Assistance may be provided throughout the activity or intermittently. 3-Partial/Moderate Assistance-helper does LESS THAN HALF the effort. [place] lifts, holds or supports trunk or limbs, but provides less than half the effort. 2-Substantial/Maximal Assistance-helper does MORE THAN HALF the effort. [place] lifts or holds trunk or limbs and provides more than half the effort. 4-Mtfaqxoah-lzrygx does ALL the effort. Patient does none of the effort to complete the activity. Or, the assistance of 2 or more helpers is required for the patient to complete the activity. If activity was not attempted, code reason: 7-Patient Refused. 9-Not Applicable-not attempted and the patient did not perform the activity before the current illness, exacerbation or injury. 10-Not Attempted due to Environmental Limitations-(lack of equipment, weather restraints, etc.). 88-Not Attempted due to Medical Conditions or Safety Concerns. Roll Left & Right (QC): 6 Sit to Lying (QC): 6 Lying to Sitting/Side of Bed(Q: 6 Sit to Stand (QC): 4 Chair/Fdf-tg-Sqosa Xfer(QC): 4 Toilet Transfer (QC): 4 Car Transfer (QC): 3 Patient performs rolling and supine <-> sit with independence, sit <-> stand and transfers CGA, car transfer min assist. Patient needs occasional cues of hand placement and positioning during activity. Weight Bearing Full Weight Bearing Full Weight Bearing Gait Training Does the Patient Walk?: Yes Distance: 75', 50'x3 Walk 10 feet (QC): 4 Walk 50 ft with 2 Turns(QC): 4 Walk 150 ft (QC): 88 Walking 10ft/uneven surface-QC: 4 Gait Persons Needed: 1 Gait Assistive Device: FWW Patient can ambulate 75' with a rolling walker with CGA (including 50' with at least 2 turns of 90 degrees and 10' over an uneven surface), patient ambulates very slowly, fatigues quickly Wheelchair Training Wheel 50 ft with 2 turns (QC): 9 Wheel 150 ft (QC): 9 Stair Training Stair Training: Handrails/: 2 handrails #of Steps: 2 1 Step (curb) (QC): 4 4 Steps (QC): 88 12 Steps (QC): 88 Stairs: Pattern: Step to Patient can go up and down 2 steps using 2 handrails with CGA, cues for safety, patient didn't want to try to attempt any more than 2 steps Balance Picking up an Object (QC): 4 (CGA using manufacturing planner) Exercises Patient also performed standing activity to work on LE strength and endurance while performing UE activity involving reaching. NuStep Minutes: 15 NuStep Workload: 3 Neuromuscular Patient scored 17/28 on the Tinetti Assessment Tool Treatments PT performed bed mobility and transfer training, balance and endurance training, functional strengthening, gait training, stair training, balance and positioning during UE activity, OT performed UE activity, UE positioning and safety during ambulation. Assessment Current Status: Fair Progress Patient has made some progress but has poor endurance, needs frequent rest breaks PT Short Term Goals Short Term Goals Time Frame: Aug 29, 2021 Roll Left & Right: 6 Sit to lyin Lying to sitting on side of be: 4 Sit to stand: 4 Walk 10 feet: 4 PT Miniature Train Driver Goals Miniature Train Driver Goals PT Miniature Train Driver Goals Time Frame: Sep 12, 2021 Roll Left & Right (QC): 6 Sit to Lying (QC): 6 Lying-Sitting on Side/Bed(QC): 6 Sit to Stand (QC): 4 (SBA) Chair/Cab-gc-Ltppk Xfer(QC): 4 (SBA) Toilet Transfer (QC): 4 (SBA) Car Transfer (QC): 4 (SBA) Does the Patient Walk: Yes Walk 10 feet (QC): 4 (SBA) Walk 50ft with 2 Turns (QC): 4 (SBA) Walk 150 ft (QC): 88 Walking 10ft on Uneven Surface: 4 (SBA) 1 Step (curb) (QC): 4 (SBA) 4 Steps (QC): 88 12 Steps (QC): 88 Picking up an Object (QC): 4 (SBA using manufacturing planner) Wheel 50 feet with 2 turns (QC: 9 Wheel 150 feet: 9 PT Plan Problem List Problem List: Activity Tolerance, Functional Strength, Safety, Balance, Gait, Transfer, Bed Mobility, ROM Treatment/Plan Treatment Plan: Continue Plan of Care Treatment Plan: Bed Mobility, Education, Functional Activity Bright, Functional Strength, Group Therapy, Gait, Safety, Therapeutic Exercise, Transfers Treatment Duration: Sep 12, 2021 Frequency: At least 5 of 7 days/Wk (IRF) Estimated Hrs Per Day: 1.5 hours per day Patient and/or Family Agrees t: Yes Safety Risks/Education Patient Education: Gait Training, Transfer Techniques, Steps, Correct Positioning, Safety Issues Teaching Recipient: Patient Teaching Methods: Demonstration, Discussion Response to Teaching: Reinforcement Needed Time/GCodes Time In: 0900 Time Out: 1030 Total Billed Treatment Time: 90 Total Billed Treatment 1 visit EX 30' FA 60' co-treated with OT from [id number] APRIL MUELLER PT Aug 31, 2021 10:19
[2021-08-31] MEDS: ENOXAPARIN 40 MG/0.4 ML (LOVENOX) SYR SC SCH (11:57)
[2021-08-31] MEDS: [UNRECOGNIZED DRUG - REMARK] PO SCH (18:23)
[2021-08-31 19:55] VITALS: BP 104/69
[2021-08-31] MEDS: CYCLOBENZAPRINE 10 MG (FLEXERIL) TAB PO PRN (20:04)
[2021-08-31] MEDS: HYDROcodone/APAP 5 MG/325 MG (LORTAB) TAB PO PRN (20:05)
[2021-09-01] MEDS: LEVOTHYROXINE 75 MCG (LEVOTHROID) TABLET PO SCH (06:09)
[2021-09-01] MEDS ORDERED: CHOL4PAC3 PO (06:12)
[2021-09-01] MEDS ORDERED: SILV20CR14 TOP (06:12)
[2021-09-01] MEDS ORDERED: LOPE2CAP PO (06:12)
[2021-09-01] MEDS ORDERED: POTA-169 PO (06:12)
[2021-09-01] MEDS ORDERED: HYDR50TA76 PO (06:12)
[2021-09-01] MEDS ORDERED: FENT1PAT9 TD (06:12)
[2021-09-01] MEDS ORDERED: SODI475I IR (06:12)
[2021-09-01] MEDS ORDERED: LEVO75TA6 PO (06:12)
[2021-09-01] MEDS ORDERED: CYCL10TA25 PO (06:12)
[2021-09-01] MEDS ORDERED: PARO10TA3 PO (06:12)
[2021-09-01] MEDS ORDERED: ISOS30TA82 PO (06:12)
[2021-09-01] MEDS ORDERED: ACHD5005 PO (06:12)
[2021-09-01] MEDS ORDERED: PARO40TA3 PO (06:12)
[2021-09-01] MEDS ORDERED: MTP25TSR PO (06:12)
[2021-09-01] MEDS ORDERED: ATOR40TA70 PO (06:12)
[2021-09-01] MEDS ORDERED: NF-ACI30T PO (06:12)
[2021-09-01] MEDS ORDERED: ONDA4TAB11 PO (06:12)
[2021-09-01] MEDS ORDERED: ASPI-1238 PO (06:12)
[2021-09-01] MEDS ORDERED: ENOX40DI8 SC (06:12)
[2021-09-01] MEDS ORDERED: ACET325T49 PO (06:12)
[2021-09-01] MEDS ORDERED: FLUT16SP22 NSEACH (06:12)
[2021-09-01] MEDS ORDERED: COLL30OI TP (06:12)
--- NOTE | 2021-09-01 06:14 | Discharge Summary ---
Diagnosis/Chief Complaint Date of Admission Aug 22, 2021 at 11:25 Date of Discharge Discharge Date: Sep 01, 2021 Discharge Diagnosis Assessment: Debility Dehydration Diarrhea Bacteremia placed on Unasyn now disproved so DC abx Chronic pain on Fentanyl patch and Hydrocodone Multiple falls Left heel ulcer pressure type present prior to admit Bedridden h/o Left lacunar cerebellar infarct with gait imbalance and dyscoordination on the left 2016 HTN controlled Hypothyroidosm on replacement Post thoracotomy pain syndrome on pain meds Mild anemia O2 dependence s/p thoracotomy Chronic nausea Plan: Home meds IVF Unasyn Repeat BCx PT OT O2 08/23: Stool studies IVF Unasyn Monitor closely 08/24/21: Monitor closely DC IVF [facility] DC 08/25: Monitor nausea Supportive care 08/26/2021: Supportive care Increase oral fluids Chronic pain management 08/27/21: [facility] 3 times daily Supportive care 08/28/21: [facility] PT OT 08/29/21: Dr Urban consult Dr Solo consult EKG 08/30/2021: Monitor closely May need NHP 08/31/2021: NHP tomorrow Declined end of life discussion for advance directive and living will Poor prognosis Discharge Summary Discharge Physical Examination Allergies: Coded Allergies: varenicline (Verified Allergy, Unknown, 08/22/21) Vitals & I&Os Vital Signs Date Time Temp Pulse Resp B/P (MAP) Pulse Ox O2 Delivery O2 Flow Rate FiO2 08/31/21 21:00 Nasal Cannula 2.00 08/31/21 19:55 36.6 108 18 104/69 (81) 99 General Appearance: Alert, Oriented X3 Respiratory: Clear to Auscultation Cardiovascular: Regular Rate Psych/Mental Status: Mental Status NL Hospital Course Was the Problem List Reviewed?: Yes Lengthy course after she came to ARU very debilitated and bedridden for past 2 weeks from diarrhea and dehydration. Home meds restarted. Participated with therapy somewhat but her overall status was so declined and apathy played a major factor she was ultimately accepted to intermediate. Wound care initiated for burn on her leg and chronic nausea was managed with antiemetics. Patient declined Cardiology recommended EST and ECHO but did not want to discuss end of life, advance directive or living will. Overall her prognosis remains poor. Labs (last 24 hrs) Laboratory Tests 08/22/21 13:33: Procalcitonin 0.87H, Thyroid Stimulating Hormone (TSH) 2.01 08/23/21 06:02: White Blood Count 7.0, Red Blood Count 3.14L, Hemoglobin 10.2L, Hematocrit 32L, Mean Corpuscular Volume 102H, Mean Corpuscular Hemoglobin 33, Mean Corpuscular Hemoglobin Concent 32, Red Cell Distribution Width 18.4H, Platelet Count 310, Mean Platelet Volume 10.7, Immature Granulocyte % (Auto) 1, Neutrophils (%) (Aut o) 62, Lymphocytes (%) (Auto) 24, Monocytes (%) (Auto) 10, Eosinophils (%) (Auto) 2, Basophils (%) (Auto) 1, Neutrophils # (Auto) 4.3, Lymphocytes # (Auto) 1.7, Monocytes # (Auto) 0.7, Eosinophils # (Auto) 0.2, Basophils # (Auto) 0.1, Immature Granulocyte # (Auto) 0.1, Sodium Level 137, Potassium Level 3.1L, Chloride Level 101, Carbon Dioxide Level 26, Anion Gap 10, Blood Urea Nitrogen 6L, Creatinine 0.93, Estimat Glomerular Filtration Rate 70, BUN/Creatinine Ratio 6, Glucose Level 100, Calcium Level 7.2L, Corrected Calcium 8.8, Total Bilirubin 0.7, Aspartate Amino Transf (AST/SGOT) 37H, Alanine Aminotransferase (ALT/SGPT) 46, Alkaline Phosphatase 184H, Total Protein 5.1L, Albumin 2.0L 08/24/21 05:00: White Blood Count 6.3, Red Blood Count 2.85L, Hemoglobin 9.3L, Hematocrit 29L, Mean Corpuscular Volume 101H, Mean Corpuscular Hemoglobin 33, Mean Corpuscular Hemoglobin Concent 32, Red Cell Distribution Width 18.3H, Platelet Count 310, Mean Platelet Volume 10.6, Immature Granulocyte % (Auto) 1, Neutrophils (%) (Auto) 58, Lymphocytes (%) (Auto) 28, Monocytes (%) (Auto) 10, Eosinophils (%) (Auto) 3, Basophils (%) (Auto) 1, Neutrophils # (Auto) 3.6, Lymphocytes # (Auto) 1.7, Monocytes # (Auto) 0.7, Eosinophils # (Auto) 0.2, Basophils # (Auto) 0.0, Immature Granulocyte # (Auto) 0.0, Sodium Level 140, Potassium Level 3.1L, Chloride Level 105, Carbon Dioxide Level 27, Anion Gap 8, Blood Urea Nitrogen 4L , Creatinine 0.78, Estimat Glomerular Filtration Rate 86, BUN/Creatinine Ratio 5, Glucose Level 101, Calcium Level 7.2L, Corrected Calcium 8.9, Total Bilirubin 0.6, Aspartate Amino Transf (AST/SGOT) 30, Alanine Aminotransferase (ALT/SGPT) 41, Alkaline Phosphatase 155H, Total Protein 4.8L, Albumin 1.9L 08/24/21 10:57: Stool Occult Blood Immunoassay NEGATIVE 08/28/21 07:40: White Blood Count 8.4, Red Blood Count 2.71L, Hemoglobin 8.8L, Hematocrit 28L, Mean Corpuscular Volume 102H, Mean Corpuscular Hemoglobin 33, Mean Corpuscular Hemoglobin Concent 32, Red Cell Distribution Width 19.3H, Platelet Count 169, Mean Platelet Volume 11.2, Immature Granulocyte % (Auto) 1, Neutrophils (%) (Auto) 67, Lymphocytes (%) (Auto) 23, Monocytes (%) (Auto) 8, Eosinophils (%) (Auto) 1, Basophils (%) (Auto) 0, Neutrophils # (Auto) 5.6, Lymphocytes # (Auto) 1.9, Monocytes # (Auto) 0.6, Eosinophils # (Auto) 0.1, Basophils # (Auto) 0.0, Immature Granulocyte # (Auto) 0.1, Sodium Level 137, Potassium Level 4.6, Chloride Level 101, Carbon Dioxide Level 26, Anion Gap 10, Blood Urea Nitrogen 3L, Creatinine 0.73, Estimat Glomerular Filtration Rate 94, BUN/Creatinine Ratio 4, Glucose Level 94, Calcium Level 8.0L, Corrected Calcium 9.6, Total Bilirubin 0.5, Aspartate Amino Transf (AST/SGOT) 26, Alanine Aminotransferase (ALT/SGPT) 33, Alkaline Phosphatase 128, Total Protein 4.8L, Albumin 2.0L 08/29/21 10:17: White Blood Count 10.4, Red Blood Count 2.86L, Hemoglobin 9.4L, Hematocrit 29L, Mean Corpuscular Volume 100H, Mean Corpuscular Hemoglobin 33, Mean Corpuscular Hemoglobin Concent 33, Red Cell Distribution Width 18.8H, Platelet Count 434H, Mean Platelet Volume 10.0, Immature Granulocyte % (Auto) 1, Neutrophils (%) (Auto) 73, Lymphocytes (%) (Auto) 18, Monocytes (%) (Auto) 7, Eosinophils (%) (Auto) 1, Basophils (%) (Auto) 0, Neutrophils # (Auto) 7.6, Lymphocytes # (Auto) 1.9, Monocytes # (Auto) 0.8, Eosinophils # (Auto) 0.1, Basophils # (Auto) 0.0, Immature Granulocyte # (Auto) 0.1, Sodium Level 134L, Potassium Level 4.6, Chloride Level 98, Carbon Dioxide Level 26, Anion Gap 10, Blood Urea Nitrogen 3L , Creatinine 0.72, Estimat Glomerular Filtration Rate 95, BUN/Creatinine Ratio 4, Glucose Level 102, Calcium Level 8.3L, Corrected Calcium 9.7, Total Bilirubin 0.6, Aspartate Amino Transf (AST/SGOT) 26, Alanine Aminotransferase (ALT/SGPT) 30, Alkaline Phosphatase 125, Total Protein 5.2L, Albumin 2.3L, Troponin I 0.044H, Triglycerides Level 87, Cholesterol Level 137, LDL Cholesterol Direct 38, VLDL Cholesterol 17, HDL Cholesterol 76H 08/29/21 13:05: Troponin I 0.048H Microbiology 08/31/21 Fecal Leukocyte Stain - Final, Complete 08/22/21 Blood Culture - Final, Complete No growth Pending Labs Microbiology Date/Time Source Procedure Growth Status 08/31/21 08:13 Stool Fecal Leukocyte Stain - Final Complete 08/24/21 09:10 Stool C. difficile GDH Antigen & Toxins - Final Complete 08/24/21 09:10 Stool Stool Culture - Final Complete 08/22/21 13:43 Peripheral Rt Hand Blood Culture - Final No growth Complete 08/22/21 13:33 Peripheral Rt Hand Blood Culture - Final No growth Complete Laboratory Tests 08/22/21 13:33: Procalcitonin 0.87, Thyroid Stimulating Hormone (TSH) 2.01 08/23/21 06:02: White Blood Count 7.0, Red Blood Count 3.14, Hemoglobin 10.2, Hematocrit 32, Mean Corpuscular Volume 102, Mean Corpuscular Hemoglobin 33, Mean Corpuscular Hemoglobin Concent 32, Red Cell Distribution Width 18.4, Platelet Count 310, Mean Platelet Volume 10.7, Immature Granulocyte % (Auto) 1, Neutrophils (%) (Auto) 62, Lymphocytes (%) (Auto) 24, Monocytes (%) (Auto) 10, Eosinophils (%) (Auto) 2, Basophils (%) (Auto) 1, Neutrophils # (Auto) 4.3, Lymphocytes # (Auto) 1.7, Monocytes # (Auto) 0.7, Eosinophils # (Auto) 0.2, Basophils # (Auto) 0.1, Immature Granulocyte # (Auto) 0.1, Sodium Level 137, Potassium Level 3.1, Chloride Level 101, Carbon Dioxide Level 26, Anion Gap 10, Blood Urea Nitrogen 6, Creatinine 0.93, Estimat Glomerular Filtration Rate 70, BUN/Creatinine Ratio 6, Glucose Level 100, Calcium Level 7.2, Corrected Calcium 8.8, Total Bilirubin 0.7, Aspartate Amino Transf (AST/SGOT) 37, Alanine Aminotransferase (ALT/SGPT) 46, Alkaline Phosphatase 184, Total Protein 5.1, Albumin 2.0 08/24/21 05:00: White Blood Count 6.3, Red Blood Count 2.85, Hemoglobin 9.3, Hematocrit 29, Mean Corpuscular Volume 101, Mean Corpuscular Hemoglobin 33, Mean Corpuscular Hemoglobin Concent 32, Red Cell Distribution Width 18.3, Platelet Count 310, Mean Platelet Volume 10.6, Immature Granulocyte % (Auto) 1, Neutrophils (%) (Auto) 58, Lymphocytes (%) (Auto) 28, Monocytes (%) (Auto) 10, Eosinophils (%) (Auto) 3, Basophils (%) (Auto) 1, Neutrophils # (Auto) 3.6, Lymphocytes # (Auto) 1.7, Monocytes # (Auto) 0.7, Eosinophils # (Auto) 0.2, Basophils # (Auto) 0.0, Immature Granulocyte # (Auto) 0.0, Sodium Level 140, Potassium Level 3.1, Chloride Level 105, Carbon Dioxide Level 27, Anion Gap 8, Blood Urea Nitrogen 4, Creatinine 0.78, Estimat Glomerular Filtration Rate 86, BUN/Creatinine Ratio 5, Glucose Level 101, Calcium Level 7.2, Corrected Calcium 8.9, Total Bilirubin 0.6, Aspartate Amino Transf (AST/SGOT) 30, Alanine Aminotransferase (ALT/SGPT) 41, Alkaline Phosphatase 155, Total Protein 4.8, Albumin 1.9 08/24/21 10:57: Stool Occult Blood Immunoassay NEGATIVE 08/28/21 07:40: White Blood Count 8.4, Red Blood Count 2.71, Hemoglobin 8.8, Hematocrit 28, Mean Corpuscular Volume 102, Mean Corpuscular Hemoglobin 33, Mean Corpuscular Hemoglobin Concent 32, Red Cell Distribution Width 19.3, Platelet Count 169, Mean Platelet Volume 11.2, Immature Granulocyte % (Auto) 1, Neutrophils (%) (Auto) 67, Lymphocytes (%) (Auto) 23, Monocytes (%) (Auto) 8, Eosinophils (%) (Auto) 1, Basophils (%) (Auto) 0, Neutrophils # (Auto) 5.6, Lymphocytes # (Auto) 1.9, Monocytes # (Auto) 0.6, Eosinophils # (Auto) 0.1, Basophils # (Auto) 0.0, Immature Granulocyte # (Auto) 0.1, Sodium Level 137, Potassium Level 4.6, Chloride Level 101, Carbon Dioxide Level 26, Anion Gap 10, Blood Urea Nitrogen 3, Creatinine 0.73, Estimat Glomerular Filtration Rate 94, BUN/Creatinine Ratio 4, Glucose Level 94, Calcium Level 8.0, Corrected Calcium 9.6, Total Bilirubin 0.5, Aspartate Amino Transf (AST/SGOT) 26, Alanine Aminotransferase (ALT/SGPT) 33, Alkaline Phosphatase 128, Total Protein 4.8, Albumin 2.0 08/29/21 10:17: White Blood Count 10.4, Red Blood Count 2.86, Hemoglobin 9.4, Hematocrit 29, Mean Corpuscular Volume 100, Mean Corpuscular Hemoglobin 33, Mean Corpuscular Hemoglobin Concent 33, Red Cell Distribution Width 18.8, Platelet Count 434, Mean Platelet Volume 10.0, Immature Granulocyte % (Auto) 1, Neutrophils (%) (Auto) 73, Lymphocytes (%) (Auto) 18, Monocytes (%) (Auto) 7, Eosinophils (%) (Auto) 1, Basophils (%) (Auto) 0, Neutrophils # (Auto) 7.6, Lymphocytes # (Auto) 1.9, Monocytes # (Auto) 0.8, Eosinophils # (Auto) 0.1, Basophils # (Auto) 0.0, Immature Granulocyte # (Auto) 0.1, Sodium Level 134, Potassium Level 4.6, Chloride Level 98, Carbon Dioxide Level 26, Anion Gap 10, Blood Urea Nitrogen 3, Creatinine 0.72, Estimat Glomerular Filtration Rate 95, BUN/Creatinine Ratio 4, Glucose Level 102, Calcium Level 8.3, Corrected Calcium 9.7, Total Bilirubin 0.6, Aspartate Amino Transf (AST/SGOT) 26, Alanine Aminotransferase (ALT/SGPT) 30, Alkaline Phosphatase 125, Total Protein 5.2, Albumin 2.3, Troponin I 0.044, Triglycerides Level 87, Cholesterol Level 137, LDL Cholesterol Direct 38, VLDL Cholesterol 17, HDL Cholesterol 76 08/29/21 13:05: Troponin I 0.048 Discharge Home Medications: Active Scripts Active Vashe Wound Therapy Solution (Sodium Chlor/Hypochlorous Acid) 0.033 % Irrig.soln 0 Ml IR BID Santyl (Collagenase) 250 Unit/Gram Oint..gm. 0 Gm TP BID Silvadene (Silver Sulfadiazine) 1 % Cream..g. 0 Gm TOP BID Ondansetron Odt (Ondansetron) 4 Mg Tab.rapdis 4 Mg PO Q6H PRN Loperamide (Loperamide HCl) 2 Mg Capsule 2 Mg PO PRN PRN Klor-Con M20 (Potassium Chloride) 20 Meq Tab.er.prt 10 Meq PO DAILY Acetaminophen 325 Mg Tablet 650 Mg PO Q6H PRN Metoprolol Succinate 25 Mg Tab.er.24h 25 Mg PO DAILY Isosorbide Mononitrate ER (Isosorbide Mononitrate) 30 Mg Tab.er.24h 30 Mg PO DAILY Prevalite Packet (Cholestyramine/Aspartame) 4 Gram Powd.pack 4 Gm PO TID PRN Enoxaparin Sodium 40 Mg/0.4 Ml Syringe 40 Mg SC Q24H Paroxetine HCl 40 Mg Tablet 40 Mg PO DAILY TAKES 10MG +40MG TO EQUAL 50MG DAILY Paroxetine HCl 10 Mg Tablet 10 Mg PO DAILY TAKES 10MG +40MG TO EQUAL 50MG DAILY Aspirin EC (Aspirin) 81 Mg Tablet.dr 81 Mg PO DAILY Atorvastatin Calcium 40 Mg Tablet 40 Mg PO HS Fluticasone Propionate 50 Mcg/Actuation Jefferson.susp 1 Jefferson NSEACH DAILY PRN Levothyroxine Sodium 75 Mcg Tablet 75 Mcg PO DAILY Hydroxyzine HCl 50 Mg Tablet 50 Mg PO TID PRN Fentanyl Patch 50 MCG (Fentanyl) 50 Mcg/Hour Patch.td72 50 Mcg TD Q72H Hydrocodone-Acetamin 5-325 mg (Hydrocodone/Acetaminophen) 5 Mg-325 Mg Tablet 1 Ea PO Q4H PRN MDD 5 Aciphex (Rabeprazole Sodium) 20 Mg Tablet.dr 20 Mg PO BID Cyclobenzaprine HCl 10 Mg Tablet 10 Mg PO TID PRN Reported Losartan Potassium 100 Mg Tablet 100 Mg PO HS Metoprolol Succinate 100 Mg Tab.er.24h 100 Mg PO DAILY Gabapentin 600 Mg Tablet 600 Mg PO BID PRN Instructions to patient/family Please see electronic discharge instructions given to patient. Diagnosis/Problems Diagnosis/Problems (1) Dehydration Status: Acute (2) Diarrhea Status: Acute (3) Hypotension Status: Acute (4) Cerebellar stroke MECHELLE FOY DO Sep 01, 2021 06:14
--- NOTE | 2021-09-01 06:14 | Discharge Inst-Skilled Nursing ---
Discharge Inst-Skilled NF Reconcile Patient Problems Problems Reviewed?: Yes Patient Instructions Patient Problems: Debility Goal: Inpdendence Consult/Follow Up/Orders Follow Up Appt.: PCP DC rounds Skilled NF Admit to: [facility] ([facility]) I certify that SNF services are required to be given on an inpatient basis because of the above named patient's need for long term care on a continuing basis for the conditions(s) for which he/she was receiving inpatient hospital services prior to his/her transfer to the [facility]. Residential Facility Order: Nursing Services, Document Management Technician-Evaluate & Treat, Physical Therapy-Evaluate & Treat, Wound Care-Eval/Treat Oxygen Delivery Method: Nasal Cannula Discharge Diet: No Restrictions Daily Activity as Tolerated: Yes Resuscitation Status: Full Code New & Resume Previous Orders New Medications: Acetaminophen (Acetaminophen) 325 Mg Tablet 650 MG PO Q6H PRN for PAIN-MILD (1-4), #30 TAB Cholestyramine/Aspartame (Prevalite Packet) 4 Gram Powd.pack 4 GM PO TID PRN for DIARRHEA, #30 EACH Collagenase (Santyl) 250 Unit/Gram Oint..gm. 0 GM TP BID, #1 TUBE Enoxaparin Sodium (Enoxaparin Sodium) 40 Mg/0.4 Ml Syringe 40 MG SC Q24H, #14 SYRINGE Isosorbide Mononitrate (Isosorbide Mononitrate ER) 30 Mg Tab.er.24h 30 MG PO DAILY, #30 TAB Loperamide HCl (Loperamide) 2 Mg Capsule 2 MG PO PRN PRN for DIARRHEA, #30 CAP Metoprolol Succinate (Metoprolol Succinate) 25 Mg Tab.er.24h 25 MG PO DAILY, #30 TAB Ondansetron (Ondansetron Odt) 4 Mg Tab.rapdis 4 MG PO Q6H PRN for NAUSEA/VOMITING-1ST LINE, #30 TAB Potassium Chloride (Klor-Con M20) 20 Meq Tab.er.prt 10 MEQ PO DAILY, #30 EA Silver Sulfadiazine (Silvadene) 1 % Cream..g. 0 GM TOP BID, #1 TUBE Sodium Chlor/Hypochlorous Acid (Vashe Wound Therapy Solution) 0.033 % Irrig.soln 0 ML IR BID, #1 ML Continued Medications: Aspirin (Aspirin EC) 81 Mg Tablet.dr 81 MG PO DAILY, #30 TAB (This prescription has been renewed) Atorvastatin Calcium (Atorvastatin Calcium) 40 Mg Tablet 40 MG PO HS, #30 TAB (This prescription has been renewed) Cyclobenzaprine HCl (Cyclobenzaprine HCl) 10 Mg Tablet 10 MG PO TID PRN for MUSCLE SPASMS, #60 TAB (This prescription has been renewed) Fentanyl (Fentanyl Patch 50 MCG) 50 Mcg/Hour Patch.td72 50 MCG TD Q72H, #10 PATCH (This prescription has been renewed) Fluticasone Propionate (Fluticasone Propionate) 50 Mcg/Actuation Avery.susp 1 SPRAY NSEACH DAILY PRN for CONGESTION, #1 EA (This prescription has been renewed) Gabapentin (Gabapentin) 600 Mg Tablet 600 MG PO BID PRN for PAIN-BREAKTHROUGH, TAB Hydrocodone/Acetaminophen (Hydrocodone-Acetamin 5-325 mg) 5 Mg-325 Mg Tablet 1 EA PO Q4H PRN for PAIN-MODERATE (5-7) MDD 5 , #60 TAB (This prescription has been renewed) Hydroxyzine HCl (Hydroxyzine HCl) 50 Mg Tablet 50 MG PO TID PRN for ANXIETY, #30 TAB (This prescription has been renewed) Levothyroxine Sodium (Levothyroxine Sodium) 75 Mcg Tablet 75 MCG PO DAILY, #30 TAB (This prescription has been renewed) Metoprolol Succinate (Metoprolol Succinate) 100 Mg Tab.er.24h 100 MG PO DAILY, TAB Paroxetine HCl (Paroxetine HCl) 10 Mg Tablet 10 MG PO DAILY, #30 TAB (This prescription has been renewed) TAKES 10MG +40MG TO EQUAL 50MG DAILY Paroxetine HCl (Paroxetine HCl) 40 Mg Tablet 40 MG PO DAILY, #30 TAB (This prescription has been renewed) TAKES 10MG +40MG TO EQUAL 50MG DAILY Rabeprazole Sodium (Aciphex) 20 Mg Tablet.dr 20 MG PO BID, #30 TAB (This prescription has been renewed) Discontinued Medications: Losartan Potassium (Losartan Potassium) 100 Mg Tablet 100 MG PO HS, TAB Mary Vazquez Sep 01, 2021 06:13 MARY VAZQUEZ DO Sep 01, 2021 06:14
[2021-09-01 07:30] VITALS: BP 121/75
[2021-09-01] MEDS: CYCLOBENZAPRINE 10 MG (FLEXERIL) TAB PO PRN (08:10)
[2021-09-01] MEDS: PARoxetine 20 MG (PAXIL) TAB PO SCH (08:10)
[2021-09-01] MEDS: ASPIRIN E.C. 81 MG (ECOTRIN) TAB PO SCH (08:10)
[2021-09-01] MEDS: ISOSORBIDE MONONITRATE 30 MG (IMDUR) TAB PO SCH (08:10)
[2021-09-01] MEDS: PARoxetine 10 MG (PAXIL) TAB PO SCH (08:10)
[2021-09-01] MEDS: COLLAGENASE 30 GM (SANTYL) TUBE TP SCH (08:11)
[2021-09-01] MEDS: SILVER SULFADIAZINE 400 GM CREAM TOP SCH (08:11)
[2021-09-01] MEDS: SENNA W/DOCUSATE (SENOKOT S) TABLET PO SCH (08:12)
[2021-09-01] MEDS: CHOLESTYRAMINE 4 GM (QUESTRAN LITE, PREVALITE) PKT PO SCH (08:12)
[2021-09-01] MEDS: polyethylene glycoL POWDER 17 GM (MIRALAX) PACK PO SCH (08:12)
[2021-09-01] MEDS: DOCUSATE SODIUM 100 MG (COLACE) CAP PO SCH (08:12)
[2021-09-01] MEDS: [UNRECOGNIZED DRUG - REMARK] PO SCH (08:13)
[2021-09-01] MEDS: KCL 20 MEQ TAB (K-DUR) PO SCH (08:13)
[2021-09-01] MEDS: HYPOCHLOROUS ACID/NaCl (VASHE) 250 ML IR SCH (08:13)
--- NOTE | 2021-09-01 08:50 | Therapy Team Discharge Summary ---
Therapy Discharge Summary Discharge Recommendations Date of Discharge Physical Therapy Patient came to rehab with debility. Upon evaluation patient performs rolling with SBA, supine <-> sit min assist, sit <-> stand min assist, transfers min assist, car transfer mod assist, ambulated 5' with a rolling walker with CGA, and propelled a manual WC 50' with min/mod assist. Patient has been performing bed mobility and transfer training, balance and endurance training, functional strengthening, stair training, gait training, and education. Patient has made some progress and has met all of her custodial goals except for car transfer and ambulating 150'. Now, patient performs rolling and supine <-> sit with independence, sit <-> stand and transfers CGA, car transfer min assist, ambulate 75' with a rolling walker with CGA (including 50' with at least 2 turns of 90 degrees and 10' over an uneven surface), went up and down 2 steps using 2 handrails with CGA, and picked up an object from the floor using a wildlife ecology professor with CGA. Patient is being discharged from this facility today and will be discharged from PT at this time. Roll Left to Right (QC): 6 Sit to Lying (QC): 6 Lying to Sitting/Side of Bed(Q: 6 Sit to Stand (QC): 4 Chair/[id number]-Zgtxe Xfer(QC): 4 Toilet Transfer (QC): 5 Car Transfer (QC): 3 Does the Patient Walk: Yes Walk 10 feet (QC): 4 Walk 50 ft with 2 Turns(QC): 4 Walk 150 ft (QC): 88 Walking 10ft on uneven surface: 4 Distance: 5' Gait Assistive Device: FWW Does the Pt Use a Wheelchair: No Wheel 50 ft with 2 turns (QC): 9 Wheel 150 ft (QC): 9 Type of Wheelchair: N/A #of Steps: 2 1 Step (curb) (QC): 4 4 Steps (QC): 88 12 Steps (QC): 88 Balance Sitting Static: Normal Balance Sitting Dynamic: Normal Balance-Standing Static: Fair Picking up an Object (QC): 4 (CGA using wildlife ecology professor) Occupational Therapy Decreased Activ Tolerance, Decreased UE Strength, Impaired Funct Balance, Impaired I ADL's, Impaired Self-Care Skills Eating (QC): 6 Oral Hygiene (QC): 4 (supervision for standing balance) Shower/Bathe Self (QC): 4 (SBA for standing balance when cleaning buttock s/periarea. Pt required min v/c's to take RBs when needed to complete washing full body.) Upper Body Dressing (QC): 5 Lower Body Dressing (QC): 3 (Min A and v/c's to thread legs through brief and pants. ) On/Off Footwear (QC): 5 Toileting Hygiene (QC): 4 (Supervision for balance) PT Screw Machine Tender Goals Screw Machine Tender Goals PT Residential Goals Time Frame: Sep 12, 2021 Roll Left to Right (QC): 6 Sit to Lying (QC): 6 Lying-Sitting on Side/Bed(QC): 6 Sit to Stand (QC): 4 (SBA) Chair/Dyr-xa-Lpzfw Xfer(QC): 4 (SBA) Car Transfer (QC): 4 (SBA) Does the Patient Walk: Yes Walk 10 feet (QC): 4 (SBA) Walk 10ft-Uneven Surface(QC): 4 (SBA) Walk 50ft with 2 Turns (QC): 4 (SBA) Walk 150 ft (QC): 88 Wheel 50 feet with 2 turns (QC: 9 1 Step (curb) (QC): 4 (SBA) 4 Steps (QC): 88 12 Steps (QC): 88 Picking up an Object (QC): 4 (SBA using wildlife ecology professor) OT Residential Goals Residential Goals Time Frame: Sep 15, 2021 Eating (QC): 6 (met) Oral Hygiene (QC): 6 (not met) Shower/Bathe Self (QC): 6 (not met) Upper Body Dressing (QC): 6 (not met) Lower Body Dressing (QC): 6 (not met) On/Off Footwear (QC): 6 (not met) Toileting Hygiene (QC): 6 (not met) Toilet/Commode Transfer (QC): 4 (SBA) Additional Goals: 1-Demonstrate ADL Tasks, 2-Verbalize Understanding, 3- ImproveStrength/Bright 1=Demonstrate adherence to instructed precautions during ADL tasks. 2=Patient will verbalize/demonstrate understanding of assistive devices/modifications for ADL. 3=Patient will improve strength/tolerance for activity to enable patient to perform ADL's. APRIL MUELLER PT Sep 01, 2021 08:50
--- NOTE | 2021-09-01 09:16 | Therapy Team Discharge Summary ---
Therapy Discharge Summary Discharge Recommendations Date of Discharge Therapy D/C Recommendations: Alf (TCU/NH) (OT) Physical Therapy Roll Left to Right (QC): 6 Sit to Lying (QC): 6 Lying to Sitting/Side of Bed(Q: 6 Sit to Stand (QC): 4 Chair/Ntx-xc-Tzqfo Xfer(QC): 4 Toilet Transfer (QC): 5 Car Transfer (QC): 3 Does the Patient Walk: Yes Walk 10 feet (QC): 4 Walk 50 ft with 2 Turns(QC): 4 Walk 150 ft (QC): 88 Walking 10ft on uneven surface: 4 Distance: 5' Gait Assistive Device: FWW Does the Pt Use a Wheelchair: No Wheel 50 ft with 2 turns (QC): 9 Wheel 150 ft (QC): 9 Type of Wheelchair: N/A #of Steps: 2 1 Step (curb) (QC): 4 4 Steps (QC): 88 12 Steps (QC): 88 Balance Sitting Static: Normal Balance Sitting Dynamic: Normal Balance-Standing Static: Fair Picking up an Object (QC): 4 (CGA using trust manager assistant) Occupational Therapy Pt presented to ARU with debility. Pt reports being IND with ADLs for the most part; however, she says her performance has declined over the past year, showering only when needed and completing most tasks from seated position d/t nausea, SOB, and fear of falling. At [facility], pt scored setup with eating and oral hygiene and Min A with showering, UBD, LBD, footwear, and toileting. OT tx focused on BUE strength and endurance, functional mobility, and activity tolerance. Pt made some functional progress towards goals, but did not meet goals d/t appearing self-limiting during treatments. OT does not recommend any AE at this time. Pt discharging to SNF, recommendations includes continued OT skilled services at facility. DC from OT at this time. Decreased Activ Tolerance, Decreased UE Strength, Impaired Funct Balance, Impaired I ADL's, Impaired Self-Care Skills Eating (QC): 6 Oral Hygiene (QC): 4 (supervision for standing balance) Shower/Bathe Self (QC): 4 (SBA for standing balance when cleaning buttocks/periarea. Pt required min v/c's to take RBs when needed to complete washing full body.) Upper Body Dressing (QC): 5 Lower Body Dressing (QC): 3 (Min A and v/c's to thread legs through brief and pants. ) On/Off Footwear (QC): 5 Toileting Hygiene (QC): 4 (Supervision for balance) PT Collection Advisor Goals Collection Advisor Goals PT Half-Way Goals Time Frame: Sep 12, 2021 Roll Left to Right (QC): 6 Sit to Lying (QC): 6 Lying-Sitting on Side/Bed(QC): 6 Sit to Stand (QC): 4 (SBA) Chair/Lgp-gz-Vtgqr Xfer(QC): 4 (SBA) Car Transfer (QC): 4 (SBA) Does the Patient Walk: Yes Walk 10 feet (QC): 4 (SBA) Walk 10ft-Uneven Surface(QC): 4 (SBA) Walk 50ft with 2 Turns (QC): 4 (SBA) Walk 150 ft (QC): 88 Wheel 50 feet with 2 turns (QC: 9 1 Step (curb) (QC): 4 (SBA) 4 Steps (QC): 88 12 Steps (QC): 88 Picking up an Object (QC): 4 (SBA using trust manager assistant) OT Collection Advisor Goals Half-Way Goals Time Frame: Sep 15, 2021 Eating (QC): 6 (met) Oral Hygiene (QC): 6 (not met) Shower/Bathe Self (QC): 6 (not met) Upper Body Dressing (QC): 6 (not met) Lower Body Dressing (QC): 6 (not met) On/Off Footwear (QC): 6 (not met) Toileting Hygiene (QC): 6 (not met) Toilet/Commode Transfer (QC): 4 (SBA) Additional Goals: 1-Demonstrate ADL Tasks, 2-Verbalize Understanding, 3- ImproveStrength/Bright 1=Demonstrate adherence to instructed precautions during ADL tasks. 2=Patient will verbalize/demonstrate understanding of assistive devices/modifications for ADL. 3=Patient will improve strength/tolerance for activity to enable patient to perform ADL's. MOODY BHATT OT Sep 01, 2021 09:16
[2021-09-01] MEDS: ENOXAPARIN 40 MG/0.4 ML (LOVENOX) SYR SC SCH (11:36)
[2021-09-01 11:56] VITALS: BP 121/75
--- NOTE | 2021-09-04 12:52 | Physician Query Clarification ---
PQ-Conflicting Diagnosis Admission/Discharge Admission Date: Aug 22, 2021 at 11:25 Discharge Date: Sep 01, 2021 at 12:03 The medical record reflects the following clinical scenario: History/Risk Factors: debility Clinical Findings: heel ulcer Treatment: Angelo Mary Question: Please clarify laterality of heel ulcer. Dr Hernandez states R heel ulcer, all other dictation states L heel ulcer. Please document a response in Progress Note or Discharge Summary. 1. Right heel ulcer 2. Left heel ulcer PHYSICIAN RESPONSE Do you agree w/Consulting Dx?: Yes (right heel) In responding to this query, please exercise your independent professional judgment. The purpose of this communication is to more accurately reflect the complexity of your patients condition. The fact that a question is asked does not imply that any particular answer is desired or expected. Thank you for your timely response to this clarification. Requestors name: Glenys THIS PHYSICIAN QUERY FORM IS A PERMANENT PART OF THE MEDICAL RECORD GLENYS PURDY Sep 04, 2021 12:52 MECHELLE FOY DO Sep 04, 2021 13:24
== END 2021-09-01 12:03 | DRG 947 ==
PROVIDERS: ADMIT Internal Medicine; ATTEND Internal Medicine
DX: R53.1 Weakness (principal); L89.613 Pressure ulcer of right heel, stage 3; R78.81 Bacteremia; E46 Unspecified protein-calorie malnutrition; E86.0 Dehydration; R19.7 Diarrhea, unspecified; J44.9 Chronic obstructive pulmonary disease, unspecified; G62.9 Polyneuropathy, unspecified; I10 Essential (primary) hypertension; M19.90 Unspecified osteoarthritis, unspecified site; F41.9 Anxiety disorder, unspecified; F32.A Depression, unspecified; G89.22 Chronic post-thoracotomy pain; I95.9 Hypotension, unspecified; D53.9 Nutritional anemia, unspecified; E03.9 Hypothyroidism, unspecified; R26.89 Other abnormalities of gait and mobility; R11.0 Nausea; E78.2 Mixed hyperlipidemia; R07.9 Chest pain, unspecified; R77.8 Other specified abnormalities of plasma proteins; I69.392 Facial weakness following cerebral infarction; I69.398 Other sequelae of cerebral infarction; T24.211A Burn of second degree of right thigh, initial encounter; Z88.8 Allergy status to other drugs, medicaments and biological substances; Z79.82 Long term (current) use of aspirin; Z79.890 Hormone replacement therapy; Z87.891 Personal history of nicotine dependence; Z79.899 Other long term (current) drug therapy; Z85.110 Personal history of malignant carcinoid tumor of bronchus and lung; Z90.2 Acquired absence of lung [part of]; Z91.81 History of falling; Z74.01 Bed confinement status; Z99.81 Dependence on supplemental oxygen; Z68.28 Body mass index [BMI] 28.0-28.9, adult
CPT/HCPCS: 36415; 80053; 80061; 82274; 84145; 84443; 84484; 85025; 87015; 87040; 87045; 87046; 87324; 87449; 87899; 89055; 93005; 94760

== ENCOUNTER → 2021-10-12 | Outpatient (CLI) | payer MEDICARE, MEDICAID ==
[~2021-10-12] MED LIST changes: +ACET325T49 PO; +ACHD5005 PO; +ATOR40TA70 PO; +CHOL4PAC3 PO; +COLL30OI TP; +ENOX40DI8 SC; +FLUT16SP22 NSEACH; +HYDR50TA76 PO; +ISOS30TA82 PO; +LEVO75TA6 PO; +LOPE2CAP PO; +MTP25TSR PO; +ONDA4TAB11 PO; +PARO10TA3 PO; +PARO40TA3 PO; +POTA-169 PO; +SILV20CR14 TOP; +SODI475I IR
== END ==
LOC: CARD 10:53
PROVIDERS: ATTEND Internal Medicine Cardiovascular Disease
DX: I25.2 Old myocardial infarction (principal); I35.0 Nonrheumatic aortic (valve) stenosis
CPT/HCPCS: 93306

== ENCOUNTER → 2021-10-26 | Outpatient (CLI) | payer MEDICARE, MEDICAID ==
[~2021-10-26] MED LIST changes: +CATHETER FLUSH 10 ML SYR IVP PRN; +REGADENOSON 0.4 MG/5 ML SYR (LEXISCAN) IV ONE
[2021-10-26 09:00] VITALS: BP 116/66
--- NOTE | 2021-10-26 11:50 | NUCLEAR STRESS TEST ---
REGADENOSON NUCLEAR STRESS Date of procedure: 10/26/2021. Primary care provider: Rupert White MD Admitting physician: Kei Urban Jr., MD. INDICATION: Old myocardial infarction. BASELINE ELECTROCARDIOGRAM: Sinus rhythm with possible old inferolateral and posterior myocardial infarction with inferolateral T wave changes, consider ischemia. STRESS TEST PROCEDURE: The patient was administered 0.4 mg of intravenous Regadenoson. The resting heart rate was 70 bpm and the peak heart rate was 81 bpm. The resting blood pressure was 116/66 mmHg and the minimum blood pressure was 96/65 mmHg. This represents a normal heart rate and a normal blood pressure response to Regadenoson. The test was stopped due to the protocol. There was no chest discomfort during the test. There were no arrhythmias during the test. There were no significant stress induced electrocardiogram changes. NUCLEAR PROCEDURE: The patient was administered 10.2 mCi of intravenous technetium 99m Tetrofosmin at rest for the rest images. The patient was subsequently administered 29.80 mCi of intravenous technetium 99m Tetrofosmin at peak stress for the stress images. Following an appropriate wait after each injection, imaging was obtained. The images were subsequently processed and reformatted in the usual views. Gated imaging was obtained. The image quality was adequate with a mild degree of gastrointestinal attenuation artifact. CT attenuation correction was used as a adjunct to standard imaging. Both the co rrected and uncorrected images were reviewed for interpretation. NUCLEAR RESULTS: There was normal myocardial perfusion in all segments without evidence of infarction or ischemia. There was normal left ventricular chamber size with an end-diastolic volume of 30 mL and an end-systolic volume of 8 mL. There was no evidence of transient ischemic dilatation. The TID ratio was 1.18. There was normal wall motion in all segments with a calculated ejection fraction of 74%. IMPRESSION: 1. Normal heart rate and blood pressure response to regadenoson. 2. There was no chest discomfort, arrhythmias, or electrocardiogram changes during the test. 3. There was normal myocardial perfusion in all segments without evidence of infarction or ischemia. 4. There was normal wall motion in all segments with a calculated ejection fraction of 74%. Certain portions of this document may have been dictated utilizing voice recognition technology. Inherent to this technology, typographical and grammatical errors may exist. As much as I am diligent to identify and correct these mistakes, some errors may remain in the document. KEI URBAN JR, MD Oct 26, 2021 11:50
== END ==
LOC: CARD 07:30
PROVIDERS: ATTEND Internal Medicine Cardiovascular Disease
DX: I25.2 Old myocardial infarction (principal)
CPT/HCPCS: 78452; 93017; A9502

== ENCOUNTER → 2022-12-28 | Outpatient (CLI) | payer MEDICARE, MEDICAID ==
[~2022-12-28] MED LIST changes: -CATHETER FLUSH 10 ML SYR IVP PRN; -LOSA100T57 PO; +LOSA100T58 PO; -REGADENOSON 0.4 MG/5 ML SYR (LEXISCAN) IV ONE
== END ==
LOC: CARD 15:00
PROVIDERS: ATTEND Nurse Practitioner Gerontology
DX: R06.09 Other forms of dyspnea (principal)
CPT/HCPCS: 93306